=== PATIENT | female | born 1940 | race Caucasian/White ===

== ENCOUNTER → 2017-10-19 10:07 | Outpatient (CLI) | payer MEDICARE, SELFPAY ==
--- NOTE | 2017-10-19 10:12 | CDU_ITS ---
Reason For Study: Stenosis Rt. Velocities/BP Lt. Velocities/BP Prox CCA 82/15 cm/sec. Prox CCA 85/11 cm/sec. Mid CCA 82/20 cm/sec. Mid CCA 60/9 cm/sec. Dist CCA 78/19 cm/sec. Dist CCA 69/13 cm/sec. Prox ICA 119/24 cm/sec. Prox ICA 66/11 cm/sec. Mid ICA 101/25 cm/sec. Mid ICA 49/13 cm/sec. Dist ICA 108/30 cm/sec. Dist ICA 79/24 cm/sec. Rt. ICA/CCA = 1.45. Lt. ICA/CCA = 1.31. Prox ECA 76/2 cm/sec. Prox ECA 72/5 cm/sec. Rt. Vert. 66/13 cm/sec. Lt. Vert. 60/17 cm/sec. Right Extracranial There is intimal thickening but no significant atherosclerotic plaque noted in the right common carotid artery. There is heterogeneous, irregular atherosclerotic plaque noted in the right internal carotid artery. The right internal carotid artery is very tortuous. There is heterogeneous, irregular atherosclerotic plaque noted in the right external carotid artery. Antegrade flow is noted in the right vertebral artery. Left Extracranial There is heterogeneous, irregular atherosclerotic plaque noted in the left common carotid artery. There is heterogeneous, irregular atherosclerotic plaque noted in the left internal carotid artery. There is heterogeneous, irregular atherosclerotic plaque noted in the left external carotid artery. Antegrade flow is noted in the left vertebral artery. Procedure Carotid Duplex [id number]. Exam performed in department. Interpretation Summary Mild (<50%) stenosis right extracranial internal carotid. Mild (<50%) stenosis left extracranial internal carotid. Flow within the vertebral arteries is antegrade bilaterally. Ordering Physician: Isabella Smith Referring Physician: Isabella Smith Performed By: Venessa Aparicio, JONAS, RVT
== END ==
PROVIDERS: Family Provider Nurse Practitioner; PCP Nurse Practitioner; Visit Provider Nurse Practitioner
DX: I65.23 Occlusion and stenosis of bilateral carotid arteries (principal)
CPT/HCPCS: 93880

== ENCOUNTER → 2017-11-02 10:54 | Outpatient (CLI) | payer MEDICARE, SELFPAY ==
--- NOTE | 2017-11-02 10:56 | BI_ITS ---
MAMMOGRAPHY - BILATERAL SCREENING REASON FOR EXAM: Female, 77 years old. Routine annual screening examination. PERTINENT HISTORY: Non-contributory. Remote left stereotactic breast biopsy. TECHNIQUE: Digital bilateral breast josue (3D mammographic acquisition) in the CC and MLO projections. 2-D mediolateral oblique (MLO) and craniocaudad (CC) views of both breasts were obtained. CAD: Full Field Digital Mammography with Computer Added Detection was performed. COMPARISON: Comparison is made with prior study dated November 01, 2016 and October 30, 2015. FINDINGS: Breast Composition: There are scattered areas of fibroglandular density. There are no dominant masses or suspicious calcifications. Stable appearance of the calcifications in the deep midportion of the left breast. Stable benign-appearing small bilateral axillary lymph nodes. No other significant abnormalities are identified. There has been no significant change since the prior study. BI/SCREENING MAMM (CAD), BILAT IMPRESSION: Stable bilateral screening mammogram. Yearly follow-up mammogram recommended. (A) ASSESSMENT CATEGORY: BIRADS Category 2: Benign. A letter regarding these results will be sent to the patient by the facility within 30 days. Approximately 10% of breast cancers are not detected by mammography. A normal mammogram should not delay biopsy of a clinically suspicious abnormality. [id number] Electronically Signed: Maikol Shin MD at 9:29 EDT Tel [phone], Service support ,
--- NOTE | 2017-11-02 11:26 | BD_ITS ---
STUDY: DUAL ENERGY X-RAY ABSORPTIOMETRY / DXA REASON FOR EXAM: Female, 77 years old. Postmenopausal female. History of hormone therapy. Patient is diabetic and taking calcium and multivitamins. Patient taking Actonel. TECHNIQUE: Bone Mineral Density (BMD) measurements of lumbar spine and bilateral hips were obtained. COMPARISON: None. FINDINGS: Lumbar Spine (L1-L4): g/cm2 (1.005) / T-score (-1.3) / Z-score (0 point) Findings are suggestive of osteopenia with a moderate fracture risk. Left Femur Total: g/cm2 (0.782) / T-score (-1.8) / Z-score (-0.1) Left Femoral Neck: g/cm2 (0.721) / T-score (-2.3) / Z-score (-0.4) Right Femur Total: g/cm2 (0.671) / T-score (-2.7) / Z-score (0.9) Right Femoral Neck: g/cm2 (0.696) / T-score (-2.5) / Z-score (-0.5) BD/Dexa Bone Density Study IMPRESSION: The patient is considered osteoporotic as outlined below according to World David Organization (WHO) criteria with a high fracture risk. Reference Information: The T-score is the number of standard deviations above or below the standard which is normal for young adults at their peak bone mineral density. The World Health Organization (WHO) interprets the T-scores as follows: Above -1 Normal bone density Between -1 and -2.5 Osteopenia Equal to / or below -2.5 Osteoporosis As a practical clinical guideline, osteopenia may be graded as follows: Mild -1 through -1.5 Moderate -1.6 through -2.0 Severe -2.1 through -2.4 The Z-score is the number of standard deviations above or below age-matched controls. A Z-score of less than -1.5 would be considered abnormal. References: 1. NIH Osteoporosis and Related Bone Diseases http://www.osteo.org 2. International Society for Clinical Densitometry http://www.iscd.org 3. National Osteoporosis Foundation http://www.nof.org Electronically Signed: Beto Parikh DO at 9:03 EDT Tel [phone], Service support ,
== END ==
PROVIDERS: Family Provider Nurse Practitioner; PCP Nurse Practitioner; Visit Provider Nurse Practitioner
DX: Z12.31 Encounter for screening mammogram for malignant neoplasm of breast (principal); Z78.0 Asymptomatic menopausal state
CPT/HCPCS: 77063; 77067; 77080

== ENCOUNTER → 2017-11-19 08:42 | Outpatient (CLI) | payer MEDICARE, SELFPAY ==
[2017-11-19 09:15] LABS: Color, Urine Yellow (Yellow); Glucose, Dipstick Normal (Normal); Ketone-Dipstick Negative (Negative); Leukocyte Esterase-Dipstick 500 /ul (Negative); Nitrite-Dipstick Negative (Negative); Occult Blood-Urine 10 /ul (Negative); Protein-Dipstick Negative (Negative); Specific Gravity, Urine 1.005 (1.002-1.030); Urine Bilirubin Dipstick Negative (Negative); Urine Clarity Clear (Clear); Urine Urobilinogen Normal (Normal)
[2017-11-19 09:43] LABS: Microalbumin,Random Urine 19.1 mg/L (NO RANGE EST.)
[2017-11-19 10:06] LABS: Absolute Lymphocyte Count 1.32 X10^3/ul (0.83-4.51); Absolute Neutrophil Count 2.9 X10^3/uL (2.0-7.7); Basophil# 0.01 X10^3/uL; Basophil% 0.2 % (0-1); Eosinophil# 0.17 X10^3/uL; Eosinophils% 3.6 % (0-5); Hematocrit 37.7 % (37-47); Hemoglobin 12.6 g/dl (12.0-15.0); Lymphocyte # 1.32 X10^3/ul (4.0); Mean Corp Hgb Conc 33.4 g/gl (32-36); Mean Corpuscular Hgb 29.2 pg (27.0-32.0); Mean Corpuscular Volume 87.5 fL (81-99); Mean Platelet Vol. 10.8 fl (6.2-12.0); Monocyte# 0.34 X10^3/uL; Monocyte% 7.2 % (0-10); Neutrophil # 2.87 X10^3/uL (2.7-7.7); POSITIVE COUNT NO; POSITIVE DIFFERENTIAL NO; POSITIVE MORPHOLOGY NO; Platelet Count 147 K/mm3 (150-450); RBC Distribution Width SD 44.6 fl (35.1-43.9); Red Blood Count 4.31 M/mm3 (4.2-5.4); White Blood Count 4.7 K/mm3 (4.4-11.0)
[2017-11-19 10:40] LABS: ALB/GLOB Ratio 1.3 RATIO (0.9-2.4); AST(SGOT) 23 U/L (15-37); Alanine Aminotransfer ALT/SGPT 26 U/L (13-56); Albumin, Serum 3.6 g/dL (3.2-5.0); Alkaline Phosphatase 61 U/L (45-117); Anion Gap 6 (5-15); BUN 12 mg/dL (7-18); Calcium,Total 8.6 mg/dL (8.5-10.1); Chloride 102 mmol/L (98-107); Cholesterol 102 mg/dL (200); Creatinine, Serum 0.66 mg/dL (0.55-1.02); EST Glomerular Filtration Rate 92 mL/min (>60); Est Glom Filt Rate - Afr Amer 111 mL/min (>60); Globulin 2.7 g/dL (2.2-4.2); Glucose 115 mg/dL (74-106); High Density Lipoprotein 48 mg/dL; Potassium 4.4 mmol/L (3.5-5.1); Protein, Total 6.3 g/dL (6.4-8.2); Sodium Level 135 mmol/L (136-145); Thyroid Stim Hormone (TSH) 1.15 uIU/mL (0.358-3.74); Triglycerides 121 mg/dL; Very Low Density Lipoprotein 24 mg/dL (5-40)
== END ==
PROVIDERS: Family Provider Nurse Practitioner; PCP Nurse Practitioner; Visit Provider Nurse Practitioner
DX: E11.9 Type 2 diabetes mellitus without complications (principal)
CPT/HCPCS: 36415; 80053; 80061; 81002; 82043; 82570; 84443; 85025

== ENCOUNTER → 2018-02-28 08:49 | Outpatient (CLI) | payer MEDICARE, SELFPAY ==
[2018-02-28 10:20] LABS: AST(SGOT) 19 U/L (15-37); Alanine Aminotransfer ALT/SGPT 24 U/L (13-56); Albumin, Serum 3.5 g/dL (3.2-5.0); Alkaline Phosphatase 58 U/L (45-117); Bilirubin, Direct 0.13 mg/dL (0.00-0.30); Cholesterol 116 mg/dL (200); Globulin 2.6 g/dL (2.2-4.2); High Density Lipoprotein 57 mg/dL; Protein, Total 6.1 g/dL (6.4-8.2); Triglycerides 107 mg/dL; Very Low Density Lipoprotein 21 mg/dL (5-40)
== END ==
PROVIDERS: Family Provider Internal Medicine; PCP Internal Medicine; Visit Provider Internal Medicine
DX: E78.4 Other hyperlipidemia (principal)
CPT/HCPCS: 36415; 80061; 80076

== ENCOUNTER → 2018-03-10 14:19 | Outpatient (CLI) | payer MEDICARE, SELFPAY ==
[2018-03-10 15:13] LABS: Potassium 4.1 mmol/L (3.5-5.1)
== END ==
PROVIDERS: Family Provider Internal Medicine; PCP Internal Medicine; Visit Provider Internal Medicine
DX: E87.5 Hyperkalemia (principal)
CPT/HCPCS: 36415; 84132

== ENCOUNTER → 2018-09-12 08:51 | Outpatient (CLI) | payer MEDICARE, SELFPAY ==
[2018-09-12 10:04] LABS: Absolute Lymphocyte Count 1.56 X10^3/ul (0.83-4.51); Absolute Neutrophil Count 3.1 X10^3/uL (2.0-7.7); Basophil# 0.02 X10^3/uL; Basophil% 0.3 % (0-1); Eosinophil# 0.81 X10^3/uL; Eosinophils% 13.9 % (0-5); Hematocrit 36.1 % (37-47); Hemoglobin 11.6 g/dl (12.0-15.0); Lymphocyte # 1.56 X10^3/ul (4.0); Lymphocyte % 26.9 % (19-41); Mean Corp Hgb Conc 32.1 g/gl (32-36); Mean Corpuscular Hgb 28.7 pg (27.0-32.0); Mean Corpuscular Volume 89.4 fL (81-99); Mean Platelet Vol. 9.8 fl (6.2-12.0); Monocyte# 0.31 X10^3/uL; Monocyte% 5.3 % (0-10); Neutrophil # 3.07 X10^3/uL (2.7-7.7); Neutrophil % 52.9 % (47-70); POSITIVE COUNT NO; POSITIVE DIFFERENTIAL NO; POSITIVE MORPHOLOGY NO; Platelet Count 257 K/mm3 (150-450); RBC Distribution Width SD 46.1 fl (35.1-43.9); Red Blood Count 4.04 M/mm3 (4.2-5.4); White Blood Count 5.8 K/mm3 (4.4-11.0)
[2018-09-12 10:33] LABS: Microalbumin,Random Urine 8.3 mg/L (NO RANGE EST.); Microalbumin:Creatinine Ratio 14.3 mg/g CRE (<30 mg/g CRE)
[2018-09-12 10:38] LABS: Vitamin B12 574 pg/mL (211-911); Vitamin D,25 Hydroxy 48.2 ng/mL (29.95-100.01)
[2018-09-12 11:14] LABS: ALB/GLOB Ratio 1.1 RATIO (0.9-2.4); AST(SGOT) 20 U/L (15-37); Alanine Aminotransfer ALT/SGPT 27 U/L (13-56); Albumin, Serum 3.1 g/dL (3.2-5.0); Alkaline Phosphatase 80 U/L (45-117); Anion Gap 11 (5-15); BUN 10 mg/dL (7-18); BUN/Creat Ratio 14.1 RATIO (10-20); Calcium,Total 8.4 mg/dL (8.5-10.1); Chloride 106 mmol/L (98-107); Creatinine, Serum 0.71 mg/dL (0.55-1.02); EST Glomerular Filtration Rate 85 mL/min (>60); Est Glom Filt Rate - Afr Amer 103 mL/min (>60); Free T3 2.6 pg/mL (2.18-3.98); Globulin 2.7 g/dL (2.2-4.2); Glucose 137 mg/dL (74-106); Potassium 4.2 mmol/L (3.5-5.1); Protein, Total 5.8 g/dL (6.4-8.2); Sodium Level 142 mmol/L (136-145); T4 Free Direct 1.33 ng/dL (0.76-1.46); Thyroid Stim Hormone (TSH) 0.77 uIU/mL (0.358-3.74)
[2018-09-13 20:07] LABS: CHOLESTEROL TOTAL 134 mg/dL (100-199); HDL-C 44 mg/dL (>39); HDL-P TOTAL 33.1 umol/L (>=30.5); SMALL LDL-P 694 nmol/L (<=527); TRIGLYCERIDES 123 mg/dL (0-149)
[2018-09-15 09:26] LABS: INSULIN RESISTANCE SCORE 52 (<=45); LDL SIZE 19.9 nm (>20.5); LDL-C 65 mg/dL (0-99); LDL-P 919 nmol/L (<1000)
== END ==
PROVIDERS: Family Provider Internal Medicine; PCP Internal Medicine; Referring Provider Internal Medicine; Visit Provider Internal Medicine
DX: E03.9 Hypothyroidism, unspecified (principal); E11.36 Type 2 diabetes mellitus with diabetic cataract; E11.65 Type 2 diabetes mellitus with hyperglycemia; E53.8 Deficiency of other specified B group vitamins; E55.9 Vitamin D deficiency, unspecified
CPT/HCPCS: 36415; 80053; 80061; 82043; 82306; 82570; 82607; 83704; 84439; 84443; 84481; 85025

== ENCOUNTER → 2018-09-26 12:31 | Outpatient (CLI) | payer MEDICARE, SELFPAY ==
--- NOTE | 2018-09-26 12:39 | CDU_ITS ---
Reason For Study: Carotid stenosis Rt. Velocities/BP Lt. Velocities/BP Prox CCA 98.5/19.9 cm/sec. Prox CCA 92.7/15.5 cm/sec. Mid CCA 100.0/16.4 cm/sec. Mid CCA 72.4/11.2 cm/sec. Dist CCA 77.4/15.8 cm/sec. Dist CCA 66.0/13.3 cm/sec. Prox ICA 111.0/21.2 cm/sec. Prox ICA 60.3/14.2 cm/sec. Mid ICA 115.0/26.7 cm/sec. Mid ICA 72.3/24.6 cm/sec. Dist ICA 102.0/21.8 cm/sec. Dist ICA 58.8/11.4 cm/sec. Rt. ICA/CCA = 1.2. Lt. ICA/CCA = 1.0. Prox ECA 105.0/11.0 cm/sec. Prox ECA 74.5/7.7 cm/sec. Rt. Vert. 53.4/10.5 cm/sec. Lt. Vert. 65.1/15.8 cm/sec. Right Extracranial There is intimal thickening but no significant atherosclerotic plaque noted in the right common carotid artery. There is heterogeneous, irregular atherosclerotic plaque noted in the right internal carotid artery. The atherosclerotic plaque causes acoustic shadowing. There is heterogeneous, irregular atherosclerotic plaque noted in the right external carotid artery. Antegrade flow is noted in the right vertebral artery. Left Extracranial There is intimal thickening but no significant atherosclerotic plaque noted in the left common carotid artery. There is heterogeneous, irregular atherosclerotic plaque noted in the left internal carotid artery. The atherosclerotic plaque causes acoustic shadowing. There is intimal thickening but no significant atherosclerotic plaque noted in the left external carotid artery. Antegrade flow is noted in the left vertebral artery. Procedure Carotid Duplex [id number]. Exam performed in department. Interpretation Summary Mild (<50%) stenosis right extracranial internal carotid. Mild (<50%) stenosis left extracranial internal carotid. Flow within the vertebral arteries is antegrade bilaterally. Ordering Physician: Karmen Resendez Referring Physician: Karmen Resendez Performed By: Sherly Lebron RVT
== END ==
PROVIDERS: Family Provider Internal Medicine; PCP Internal Medicine; Referring Provider Internal Medicine; Visit Provider Internal Medicine
DX: I65.23 Occlusion and stenosis of bilateral carotid arteries (principal)
CPT/HCPCS: 93880

== ENCOUNTER → 2018-11-03 09:51 | Outpatient (CLI) | payer MEDICARE, SELFPAY ==
--- NOTE | 2018-11-03 09:54 | BI_ITS ---
MAMMOGRAPHY - BILATERAL SCREENING 3-D TOMOSYNTHESIS REASON FOR EXAM: Female, 78 years old. Bilateral Screening 3-D tomosynthesis PERTINENT HISTORY: Status post left stereotactic biopsy in 2010.. TECHNIQUE: 2-D mammograms and 3-D Tomosynthesis of the breast (s) were performed. CAD was performed. COMPARISON: November 02, 2017. FINDINGS: The breast composition is composed of scattered fibroglandular density. Scattered benign calcifications are seen. No dense spiculated masses or suspicious microcalcifications are identified. No architectural distortion is identified. There is no skin thickening or retraction. Again seen are stable, typically benign appearing left breast calcifications. There has been no significant change since the prior study. BI/SCREENING MAMM (CAD), BILAT IMPRESSION: No mammographic signs of malignancy. Routine yearly mammograms recommended. ASSESSMENT CATEGORY: BIRADS Category 2: Benign. A letter regarding these results will be sent to the patient by the facility within 30 days. FOLLOW UP RECOMMENDATION: Yearly follow up mammogram recommended. (A) Approximately 10% of breast cancers are not detected by mammography. A normal mammogram should not delay biopsy of a clinically suspicious abnormality. Electronically Signed: Peter Dillon MD at 15:29 EDT , Service support ,
== END ==
PROVIDERS: Family Provider Internal Medicine; PCP Internal Medicine; Referring Provider Internal Medicine; Visit Provider Internal Medicine
DX: Z12.31 Encounter for screening mammogram for malignant neoplasm of breast (principal); I65.23 Occlusion and stenosis of bilateral carotid arteries
CPT/HCPCS: 77063; 77067

== ENCOUNTER → 2019-03-20 08:29 | Outpatient (CLI) | payer MEDICARE, SELFPAY ==
[2019-03-20 08:36] LABS: Mucous, Urine 0 SEEN /hpf (<or=2+); Red Blood Cells-Urine 0 SEEN /hpf (0-5)
[2019-03-20 09:14] LABS: Absolute Lymphocyte Count 1.29 X10^3/uL (0.83-4.51); Absolute Neutrophil Count 2.9 X10^3/uL (2.0-7.7); Basophil# 0.01 X10^3/uL; Basophil% 0.2 % (0-1); Eosinophil# 0.24 X10^3/uL; Hematocrit 38.7 % (37-47); Hemoglobin 12.6 g/dL (12.0-15.0); Lymphocyte # 1.29 X10^3/ul (4.0); Mean Corp Hgb Conc 32.6 g/dL (32-36); Mean Corpuscular Hgb 29.2 pg (27.0-32.0); Mean Corpuscular Volume 89.8 fL (81-99); Mean Platelet Vol. 10.5 fl (6.2-12.0); Monocyte% 6.3 % (0-10); NRBC Flagged by Analyzer 0 % (0-5); Neutrophil # 2.91 X10^3/uL (2.7-7.7); Neutrophil % 61.1 % (47-70); Platelet Count 199 K/mm3 (150-450); RBC Distribution Width CV 13.8 % (11.6-14.6); RBC Distribution Width SD 45.5 fl (35.1-43.9); Red Blood Count 4.31 M/mm3 (4.2-5.4); White Blood Count 4.8 K/mm3 (4.4-11.0)
[2019-03-20 09:22] LABS: Color, Urine Yellow (Yellow); Glucose, Dipstick Normal (Normal); Ketone-Dipstick Negative (Negative); Leukocyte Esterase-Dipstick 100 /ul (Negative); Nitrite-Dipstick Negative (Negative); Occult Blood-Urine 10 /ul (Negative); Protein-Dipstick Negative (Negative); Urine Bilirubin Dipstick Negative (Negative); Urine Clarity Clear (Clear); Urine Urobilinogen Normal (Normal)
[2019-03-20 09:30] LABS: Bacteria RARE /hpf (None Seen); Squamous Epithelial Cells - UA 0-5 SEEN /hpf (5-10); White Blood Cells 0-5 SEEN /hpf (0-5)
[2019-03-20 09:43] LABS: Microalbumin,Random Urine 7.4 mg/L (NO RANGE EST.)
[2019-03-20 09:57] LABS: ALB/GLOB Ratio 1.3 RATIO (0.9-2.4); AST(SGOT) 18 U/L (15-37); Alanine Aminotransfer ALT/SGPT 23 U/L (13-56); Albumin, Serum 3.4 g/dL (3.2-5.0); Alkaline Phosphatase 69 U/L (45-117); Anion Gap 7 (5-15); BUN 10 mg/dL (7-18); BUN/Creat Ratio 15.3 RATIO (10-20); Chloride 102 mmol/L (98-107); Creatinine, Serum 0.65 mg/dL (0.55-1.02); EST Glomerular Filtration Rate 94 mL/min (>60); Est Glom Filt Rate - Afr Amer 113 mL/min (>60); Globulin 2.7 g/dL (2.2-4.2); Glucose 117 mg/dL (74-106); Potassium 4.2 mmol/L (3.5-5.1); Protein, Total 6.1 g/dL (6.4-8.2); Sodium Level 136 mmol/L (136-145); Thyroid Stim Hormone (TSH) 1.09 uIU/mL (0.358-3.74)
[2019-03-20 10:13] LABS: Vitamin B12 184 pg/mL (211-911); Vitamin D,25 Hydroxy 48.6 ng/mL (29.95-100.01)
[2019-03-21 16:08] LABS: CHOLESTEROL TOTAL 125 mg/dL (100-199); HDL-C 52 mg/dL (>39); HDL-P TOTAL 35.7 umol/L (>=30.5); SMALL LDL-P 484 nmol/L (<=527); TRIGLYCERIDES 97 mg/dL (0-149)
[2019-03-22 16:19] LABS: INSULIN RESISTANCE SCORE 27 (<=45); LDL-C 54 mg/dL (0-99); LDL-P 773 nmol/L (<1000)
== END ==
PROVIDERS: Family Provider Internal Medicine; PCP Internal Medicine; Referring Provider Internal Medicine; Visit Provider Internal Medicine
DX: I10 Essential (primary) hypertension (principal); E03.9 Hypothyroidism, unspecified; E78.49 Other hyperlipidemia; E55.9 Vitamin D deficiency, unspecified; E53.8 Deficiency of other specified B group vitamins
CPT/HCPCS: 36415; 80053; 80061; 81001; 82043; 82306; 82570; 82607; 83704; 84443; 85025

== ENCOUNTER → 2019-12-06 07:30 | Outpatient (CLI) | payer MEDICARE, SELFPAY ==
[2019-12-06 07:37] LABS: Bacteria 0 SEEN /hpf (None Seen); Mucous, Urine 0 SEEN /hpf (<or=2+)
[2019-12-06 08:11] LABS: Absolute Lymphocyte Count 1.55 X10^3/uL (0.83-4.51); Absolute Neutrophil Count 3.1 X10^3/uL (2.0-7.7); Basophil# 0.02 X10^3/uL; Basophil% 0.4 % (0-1); Color, Urine Straw (Yellow); Eosinophil# 0.28 X10^3/uL; Eosinophils% 5.3 % (0-5); Glucose, Dipstick Normal (Normal); Hematocrit 39.5 % (37-47); Hemoglobin 12.7 g/dL (12.0-15.0); Ketone-Dipstick Negative (Negative); Leukocyte Esterase-Dipstick 500 /ul (Negative); Lymphocyte # 1.55 X10^3/ul (4.0); Lymphocyte % 29.1 % (19-41); Mean Corp Hgb Conc 32.2 g/dL (32-36); Mean Corpuscular Hgb 29.7 pg (27.0-32.0); Mean Corpuscular Volume 92.3 fL (81-99); Monocyte% 7.5 % (0-10); NRBC Flagged by Analyzer 0 % (0-5); Neutrophil # 3.07 X10^3/uL (2.7-7.7); Neutrophil % 57.5 % (47-70); Nitrite-Dipstick Negative (Negative); Occult Blood-Urine 10 /ul (Negative); Platelet Count 179 K/mm3 (150-450); Protein-Dipstick 15 mg/dl (Negative); RBC Distribution Width CV 13.6 % (11.6-14.6); RBC Distribution Width SD 45.3 fl (35.1-43.9); Red Blood Count 4.28 M/mm3 (4.2-5.4); Urine Bilirubin Dipstick Negative (Negative); Urine Clarity Sl. Cloudy (Clear); Urine Urobilinogen Normal (Normal); Urine pH 6.5 (5.0 - 8.0); White Blood Count 5.3 K/mm3 (4.4-11.0)
[2019-12-06 08:18] LABS: Red Blood Cells-Urine 0-5 SEEN /hpf (0-5); Squamous Epithelial Cells - UA 0-5 SEEN /hpf (5-10); White Blood Cells 25-50 SEEN /hpf (0-5)
[2019-12-06 08:26] LABS: Microalbumin,Random Urine 21.9 mg/L (NO RANGE EST.); Microalbumin:Creatinine Ratio 41.9 mg/g CRE (<30 mg/g CRE)
--- NOTE | 2019-12-06 08:29 | BI_ITS ---
MAMMOGRAPHY - BILATERAL SCREENING REASON FOR EXAM: Female, 79 years old. Routine annual screening examination. PERTINENT HISTORY: Non-contributory. TECHNIQUE: Digital bilateral breast lukas (3D mammographic acquisition) in the CC and MLO projections. 2-D mediolateral oblique (MLO) and craniocaudad (CC) views of both breasts were obtained. CAD: Full Field Digital Mammography with Computer Added Detection was performed. COMPARISON: Comparison is made with prior examination dated November 03, 2018 and November 02, 2017. FINDINGS: Breast Composition: There are scattered areas of fibroglandular density. There are no dominant masses or suspicious calcifications. Stable benign-appearing bilateral axillary lymph nodes. Stable macrocalcification in the central portion of the left breast. No other significant abnormalities are identified. There has been no significant change since the prior study. BI/SCREEN MAMM (CAD) W/LUKAS BILAT IMPRESSION: Stable bilateral screening mammogram. Yearly follow-up mammogram recommended. (A) ASSESSMENT CATEGORY: BIRADS Category 2: Benign. A letter regarding these results will be sent to the patient by the facility within 30 days. Approximately 10% of breast cancers are not detected by mammography. A normal mammogram should not delay biopsy of a clinically suspicious abnormality. [id number] Electronically Signed: Maikol Shin, at 9:52 EDT , Service support ,
[2019-12-06 08:45] LABS: ALB/GLOB Ratio 1.2 RATIO (0.9-2.4); AST(SGOT) 22 U/L (15-37); Alanine Aminotransfer ALT/SGPT 31 U/L (13-56); Albumin, Serum 3.4 g/dL (3.2-5.0); Alkaline Phosphatase 71 U/L (45-117); Anion Gap 8 (5-15); BUN 16 mg/dL (7-18); BUN/Creat Ratio 23.9 RATIO (10-20); Chloride 102 mmol/L (98-107); Cholesterol 124 mg/dL (200); Creatinine, Serum 0.67 mg/dL (0.55-1.02); EST Glomerular Filtration Rate 91 mL/min (>60); Est Glom Filt Rate - Afr Amer 110 mL/min (>60); Globulin 2.8 g/dL (2.2-4.2); Glucose 143 mg/dL (74-106); High Density Lipoprotein 52 mg/dL; Potassium 4.4 mmol/L (3.5-5.1); Protein, Total 6.2 g/dL (6.4-8.2); Sodium Level 136 mmol/L (136-145); Thyroid Stim Hormone (TSH) 1.35 uIU/mL (0.358-3.74); Triglycerides 83 mg/dL; Very Low Density Lipoprotein 17 mg/dL (5-40)
--- NOTE | 2019-12-06 08:53 | BD_ITS ---
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 COMPARISON: Comparison is made with prior study dated November 02, 2017. FINDINGS: Lumbar Spine (L1-L4): g/cm2 (1.395) / T-score (1.6) / Z-score (3.4) Findings are suggestive of normal bone density with a low fracture risk. Increased thoracic kyphosis. Left Femur Total: g/cm2 (0.787) / T-score (-1.8) / Z-score (0.1) Left Femoral Neck: g/cm2 (0.780) / T-score (-1.9) / Z-score (0.2) Right Femur Total: g/cm2 (0.709) / T-score (-2.4) / Z-score (-0.5) Right Femoral Neck: g/cm2 (0.767) / T-score (-1.9) / Z-score (0.1) The T-Scores on the most recent prior examination were: Lumbar Spine (L1-L4): There has been improvement of bone density since the previous examination. Left Femur Total: which represents an improvement of 0.6%. Right Femur Total: which represents an improvement of 5.7%. BD/Dexa Bone Density Study IMPRESSION: The patient is considered osteopenic as outlined below according to World David Organization (WHO) criteria with a high fracture risk. There has been improvement of bone density since the previous examination. Reference Information: The T-score is the number of standard deviations above or below the standard which is normal for young adults at their peak bone mineral density. The World Health Organization (WHO) interprets the T-scores as follows: Above -1 Normal bone density Between -1 and -2.5 Osteopenia Equal to / or below -2.5 Osteoporosis As a practical clinical guideline, osteopenia may be graded as follows: Mild -1 through -1.5 Moderate -1.6 through -2.0 Severe -2.1 through -2.4 The Z-score is the number of standard deviations above or below age-matched controls. A Z-score of less than -1.5 would be considered abnormal. References: 1. NIH Osteoporosis and Related Bone Diseases http://www.osteo.org 2. International Society for Clinical Densitometry http://www.iscd.org 3. National Osteoporosis Foundation http://www.nof.org Electronically Signed: Maikol Shin, at 10:24 EDT , Service support ,
[2019-12-06 09:09] LABS: Vitamin B12 674 pg/mL (211-911); Vitamin D,25 Hydroxy 48.6 ng/mL
== END ==
PROVIDERS: PCP Internal Medicine; Referring Provider Internal Medicine; Visit Provider Internal Medicine
DX: Z78.0 Asymptomatic menopausal state (principal); Z12.31 Encounter for screening mammogram for malignant neoplasm of breast; I10 Essential (primary) hypertension; E03.9 Hypothyroidism, unspecified; E55.9 Vitamin D deficiency, unspecified; E53.8 Deficiency of other specified B group vitamins; E11.9 Type 2 diabetes mellitus without complications
CPT/HCPCS: 36415; 77063; 77067; 77080; 80053; 80061; 81001; 82043; 82306; 82570; 82607; 84443; 85025

== ENCOUNTER 2020-01-03 08:35 | Emergency (ER) | payer MEDICARE, SELFPAY ==
[2020-01-03 08:37] VITALS: BP 144/70; PULSE 74; RESP 18; TEMP 36.5; O2SAT 97; BMI 22.2
--- NOTE | 2020-01-03 08:47 | RAD_ITS ---
STUDY: X-RAY - RIGHT KNEE REASON FOR EXAM: Female, 79 years old. FALL YESTERDAY WITH INJURY TO RIGHT KNEE. UNABLE TO PUT WEIGHT ON RIGHT SIDE TECHNIQUE: 3 view(s) of the knee. COMPARISON: None. FINDINGS: Degenerative spurring along the femoral condyles. Normal visualized proximal tibia and fibula. Normal proximal tibiofibular articulation. There is moderate degenerative arthrosis of the medial femorotibial compartment with moderate joint space narrowing. There is mild degenerative arthrosis of the lateral femorotibial compartment. There is moderate degenerative arthrosis of the patellofemoral articulation. Small joint effusion. RAD/Knee 3 Views IMPRESSION: Degenerative arthrosis. Small joint effusion. Electronically Signed: Maikol Shin, at 9:20 EDT , Service support ,
--- NOTE | 2020-01-03 08:48 | RAD_ITS ---
STUDY: X-RAY - RIGHT TIBIA AND FIBULA REASON FOR EXAM: Female, 79 years old. FALL YESTERDAY WITH INJURY TO RIGHT KNEE. UNABLE TO PUT WEIGHT ON RIGHT SIDE TECHNIQUE: 2 view(s) of the tibia and fibula were obtained. COMPARISON: None. FINDINGS: Normal visualized tibia. Normal visualized fibula. The soft tissue structures are unremarkable. RAD/Tibia & Fibula 2 Views IMPRESSION: Normal x-ray examination of the tibia and fibula. Electronically Signed: Maikol Shin, at 9:20 EDT , Service support ,
--- NOTE | 2020-01-03 08:48 | ED.DCSUM_ITS ---
History of Present Illness Chief Complaint: Fall Informant: Patient Onset: Yesterday Timing: Continuous Current Severity: Moderate Narrative: 79-year-old female with past medical history of hypertension, diabetes, hyperli pidemia presents with concern for right knee pain. States that yesterday they were at the local drugstore when she tripped over a parking curb and struck her bilateral knees on the ground. States that she has pain in her right knee. Has been able to bear weight on this knee. Has been using a walker at home to get around since this time. States that the pain is aching and worse with movement. Denies any numbness or tingling. Also states that she has a mild pain in the right upper leg and lower leg. Patient is not on anticoagulation. Denies any head trauma or loss of consciousness. Denies any dizziness, lightheadedness, chest pain, shortness of breath. Past Medical History - Allergies and Home Meds Allergies/Adverse Reactions: Allergies No Known Allergies Allergy (Verified 01/03/20 08:38) Primary Care Physician: Dunia Clifton DO [STAFF PHYSICIAN] - Karmen Resendez DO [Primary Care Provider] - Prior records reviewed: Yes Past Medical History: - - Hypertension, hyperlipidemia, diabetes Surgical History: no surgical history Smoking Status: Never smoker Alcohol: None Drugs: None Review of Systems General: Denies: Chills, Fever, Sweats Eyes: Denies: Visual changes - bilaterally, Diplopia ENT: Denies: Rhinorrhea, Sore throat Cardiovascular: Denies: Chest pain, Palpitations Respiratory: Denies: Dyspnea, Cough, Dyspnea on exertion Gastrointestinal: Denies: Abdominal pain, Nausea, Vomiting, Diarrhea, Melena, Hematochezia Genitourinary: Denies: Dysuria, Hematuria, Frequency Musculoskeletal: Reports: Arthralgias. Denies: Neck pain, Back pain, Extremity Pain Skin: Denies: Rash, Wounds Neurological: Denies: Headache, Weakness, Numbness Physical Exam Vital Signs/Narrative: Vital Signs Temp Pulse Resp BP Pulse Ox 01/03/20 08:37 97.7 F L 74 18 144/70 H 97 General: Well nourished, Well developed, No Acute Distress Head: Normocephalic, Atraumatic Eyes: Perrl, EOMI ENT: Moist mucous membranes, No rhinorrhea Neck: Supple, Nontender Cardiovascular: Regular rate, Regular rhythm, No murmurs Respiratory: No distress, CTA bilaterally, Chest nontender Abdomen: Soft, Nontender, Nondistended, Normal bowel sounds Back: Nontender, Normal Inspection Extremities: - - Evidence of right knee edema with slight ecchymosis. Worse medially. Tenderness to palpation over the right knee. Extensor mechanism intact.Patient also has abrasion to the left knee but no pain on palpation. Mild pain on palpation of the right lateral thigh with no overlying skin changes. Mild pain to palpation of the right lateral lower extremity with no overlying skin changes. Strong and palpable pulses in the popliteal as well as DP and PT. Sensation intact. Skin: Normal color, No rash Neurological: Alert, Oriented x3, Cranial nerves II-XII grossly intact, Normal Strength, Normal Sensation Psychological: Normal affect, Normal Mood Diagnostic/Tx/Re-eval Clinical Impression(s) from Imaging Studies Knee X-Ray 01/03/20 08:47 IMPRESSION: Degenerative arthrosis. Small joint effusion. Electronically Signed: Maikol Shin at 9:20 EDT , Service support , Femur X-Ray 01/03/20 08:48 IMPRESSION: Normal x-ray examination of the femur. Electronically Signed: Maikol Shin, at 9:19 EDT , Service support , Tibia/Fibula X-Ray 01/03/20 08:48 IMPRESSION: Normal x-ray examination of the tibia and fibula. Electronically Signed: Maikol Shin at 9:20 EDT , Service support , - Medical Decision Making Appears well nontoxic. No obvious deformity. Small knee effusion on x-ray. Otherwise no fracture. Extensor mechanism intact. Patient will be placed in knee immobilizer. States that she does want to try at home using her walker. Will give orthopedic follow-up. Advised to return if no improvement in the next 2 days. Patient was also advised to take Tylenol 3 times a day for the next 4 days regardless of pain. Patient agreeable and discharged home in stable condition. ED Disposition - Plan for ED Patient: Disposition: Home or Assisted Living Diagnosis: Right knee injury Instructions: ED Mechanical Fall, ED Prevention Fall Referrals: Karmen Resendez DO [Primary Care Provider] - Dunia Clifton DO [STAFF PHYSICIAN] -
--- NOTE | 2020-01-03 08:48 | RAD_ITS ---
STUDY: X-RAY - RIGHT FEMUR REASON FOR STUDY: Female, 79 years old. FALL YESTERDAY WITH INJURY TO RIGHT KNEE. UNABLE TO PUT WEIGHT ON RIGHT SIDE TECHNIQUE: 4 view(s) of the femur. COMPARISON: None. FINDINGS: Normal visualized femur. Normal visualized soft tissue structure. RAD/Femur Min 2 Views IMPRESSION: Normal x-ray examination of the femur. Electronically Signed: Maikol Shin, at 9:19 EDT , Service support ,
== END 2020-01-03 10:18 | disposition home or self-care (01) ==
PROVIDERS: Emergency Provider Emergency Medicine; PCP Internal Medicine
DX: S89.91XA Unspecified injury of right lower leg, initial encounter (principal); W01.0XXA Fall on same level from slipping, tripping and stumbling without subsequent striking against object, initial encounter; Y93.01 Activity, walking, marching and hiking; Y92.481 Parking lot as the place of occurrence of the external cause; I10 Essential (primary) hypertension; E11.9 Type 2 diabetes mellitus without complications; E78.5 Hyperlipidemia, unspecified; Z79.84 Long term (current) use of oral hypoglycemic drugs; Z79.899 Other long term (current) drug therapy
CPT/HCPCS: 73552; 73562; 73564; 73590; 99283

== ENCOUNTER → 2020-01-10 13:50 | Outpatient (CLI) | payer MEDICARE, SELFPAY ==
[2020-01-10 12:57] VITALS: BMI 22.2
--- NOTE | 2020-01-10 13:51 | RAD_ITS ---
STUDY: X-RAY - RIGHT KNEE REASON FOR EXAM: Female, 79 years old. RECENT FALL, PATELLA VIEW TECHNIQUE: 1 view of the knee (patella sunrise). COMPARISON: February 10, 2016. FINDINGS: There is mild degenerative arthrosis of the patellofemoral articulation. No fracture nor dislocation is visualized. RAD/Knee 1 or 2 Views IMPRESSION: Degenerative changes. No fracture identified. Electronically Signed: Maria Guadalupe Peacock MD at 18:45 EDT Tel , Service support ,
== END ==
PROVIDERS: PCP Internal Medicine; Referring Provider Physician Assistant; Visit Provider Physician Assistant
DX: S89.91XA Unspecified injury of right lower leg, initial encounter (principal); W19.XXXA Unspecified fall, initial encounter; M17.11 Unilateral primary osteoarthritis, right knee
CPT/HCPCS: 73560

== ENCOUNTER → 2020-06-13 08:53 | Outpatient (CLI) | payer MEDICARE, SELFPAY ==
[2020-01-10 12:57] VITALS: BMI 22.2
[2020-06-13 08:59] LABS: Mucous, Urine 0 SEEN /hpf (<or=2+); Red Blood Cells-Urine 0 SEEN /hpf (0-5)
[2020-06-13 10:12] LABS: Absolute Lymphocyte Count 1.35 X10^3/uL (0.83-4.51); Absolute Neutrophil Count 3.1 X10^3/uL (2.0-7.7); Basophil# 0.02 X10^3/uL; Basophil% 0.4 % (0-1); Eosinophil# 0.28 X10^3/uL; Eosinophils% 5.5 % (0-5); Hematocrit 40.6 % (37-47); Hemoglobin 13.1 g/dL (12.0-15.0); Lymphocyte # 1.35 X10^3/ul (4.0); Lymphocyte % 26.3 % (19-41); Mean Corp Hgb Conc 32.3 g/dL (32-36); Mean Platelet Vol. 10.7 fl (6.2-12.0); Monocyte# 0.37 X10^3/uL; Monocyte% 7.2 % (0-10); NRBC Flagged by Analyzer 0 % (0-5); Neutrophil % 60.4 % (47-70); Platelet Count 189 K/mm3 (150-450); RBC Distribution Width CV 13.6 % (11.6-14.6); RBC Distribution Width SD 45.2 fl (35.1-43.9); Red Blood Count 4.51 M/mm3 (4.2-5.4); White Blood Count 5.1 K/mm3 (4.4-11.0)
[2020-06-13 10:18] LABS: Color, Urine Yellow (Yellow); Glucose, Dipstick Normal (Normal); Ketone-Dipstick Negative (Negative); Leukocyte Esterase-Dipstick 500 /ul (Negative); Nitrite-Dipstick Negative (Negative); Occult Blood-Urine Negative /ul (Negative); Protein-Dipstick Negative (Negative); Urine Bilirubin Dipstick Negative (Negative); Urine Clarity Clear (Clear); Urine Urobilinogen Normal (Normal)
[2020-06-13 10:26] LABS: White Blood Cells 0-5 SEEN /hpf (0-5)
[2020-06-13 10:27] LABS: Bacteria RARE /hpf (None Seen); Squamous Epithelial Cells - UA 0-5 SEEN /hpf (5-10)
[2020-06-13 10:40] LABS: Microalbumin:Creatinine Ratio 16.1 mg/g CRE (<30 mg/g CRE)
[2020-06-13 11:08] LABS: Vitamin B12 1134 pg/mL (211-911); Vitamin D,25 Hydroxy 34.7 ng/mL
[2020-06-13 11:21] LABS: ALB/GLOB Ratio 1.4 RATIO (0.9-2.4); AST(SGOT) 25 U/L (15-37); Alanine Aminotransfer ALT/SGPT 36 U/L (13-56); Albumin, Serum 3.6 g/dL (3.2-5.0); Alkaline Phosphatase 72 U/L (45-117); Anion Gap 4 (5-15); BUN 14 mg/dL (7-18); BUN/Creat Ratio 22.2 RATIO (10-20); Calcium,Total 8.7 mg/dL (8.5-10.1); Chloride 105 mmol/L (98-107); Cholesterol 142 mg/dL (200); Creatinine, Serum 0.63 mg/dL (0.55-1.02); EST Glomerular Filtration Rate 97 mL/min (>60); Est Glom Filt Rate - Afr Amer 117 mL/min (>60); Globulin 2.5 g/dL (2.2-4.2); Glucose 122 mg/dL (74-106); High Density Lipoprotein 49 mg/dL; Potassium 4.5 mmol/L (3.5-5.1); Protein, Total 6.1 g/dL (6.4-8.2); Sodium Level 137 mmol/L (136-145); Thyroid Stim Hormone (TSH) 1.02 uIU/mL (0.358-3.74); Triglycerides 119 mg/dL; Very Low Density Lipoprotein 24 mg/dL (5-40)
== END ==
PROVIDERS: PCP Internal Medicine; Referring Provider Internal Medicine; Visit Provider Internal Medicine
DX: I10 Essential (primary) hypertension (principal); E03.9 Hypothyroidism, unspecified; E55.9 Vitamin D deficiency, unspecified; E78.49 Other hyperlipidemia; E53.8 Deficiency of other specified B group vitamins
CPT/HCPCS: 80053; 80061; 81001; 82043; 82306; 82570; 82607; 84443; 85025

== ENCOUNTER → 2020-12-18 08:31 | Outpatient (CLI) | payer MEDICARE, SELFPAY ==
[2020-01-10 12:57] VITALS: BMI 22.2
--- NOTE | 2020-12-18 08:37 | CDU_ITS ---
Reason For Study: carotid stenosis Rt. Velocities/BP Lt. Velocities/BP Prox CCA 98.6/22.9 cm/sec. Prox CCA 65.9/9.2 cm/sec. Mid CCA 98.6/20.3 cm/sec. Mid CCA 65.1/11.0 cm/sec. Dist CCA 85.5/24.3 cm/sec. Dist CCA 71.2/13.6 cm/sec. Prox ICA 108.7/24.8 cm/sec. Prox ICA 32.5/11.1 cm/sec. Mid ICA 114.2/28.5 cm/sec. Mid ICA 64.2/16.2 cm/sec. Dist ICA 98.6/26.2 cm/sec. Dist ICA 58.2/18.5 cm/sec. Rt. ICA/CCA = 1.2. Lt. ICA/CCA = 1.0. Prox ECA 103.4/6.6 cm/sec. Prox ECA 119.8/6.6 cm/sec. Rt. Vert. 53.7/14.5 cm/sec. Lt. Vert. 64.4/17.1 cm/sec. Right Extracranial There is homogeneous, smooth atherosclerotic plaque noted in the right common carotid artery. There is heterogeneous, irregular atherosclerotic plaque noted in the right internal carotid artery. The right internal carotid artery is very tortuous. There is heterogeneous, irregular atherosclerotic plaque noted in the right external carotid artery. Antegrade flow is noted in the right vertebral artery. Left Extracranial There is homogeneous, smooth atherosclerotic plaque noted in the left common carotid artery. There is heterogeneous, irregular atherosclerotic plaque noted in the left internal carotid artery. The left internal carotid artery is very tortuous. There is heterogeneous, irregular atherosclerotic plaque noted in the left external carotid artery. Antegrade flow is noted in the left vertebral artery. Procedure Carotid Duplex [id number]. This is a Carotid Duplex examination using B-mode, color flow and specral Doppler. The exam was diagnostic. Exam performed in department. VL/Carotid Duplex Ultrasound Interpretation Summary Mild (<50%) stenosis right extracranial internal carotid. Mild (<50%) stenosis left extracranial internal carotid. Flow within the vertebral arteries is antegrade bilaterally. Ordering Physician: Karmen Resendez Performed By: Srinivas Jeronimo RVT and Student
== END ==
PROVIDERS: PCP Internal Medicine; Visit Provider Internal Medicine
DX: I65.23 Occlusion and stenosis of bilateral carotid arteries (principal)
CPT/HCPCS: 93880

== ENCOUNTER → 2020-12-25 09:02 | Outpatient (CLI) | payer MEDICARE, SELFPAY ==
[2020-01-10 12:57] VITALS: BMI 22.2
[2020-12-25 09:26] LABS: Absolute Lymphocyte Count 1.38 X10^3/uL (0.83-4.51); Absolute Neutrophil Count 3.6 X10^3/uL (2.0-7.7); Basophil# 0.02 X10^3/uL; Basophil% 0.4 % (0-1); Eosinophil# 0.22 X10^3/uL; Eosinophils% 3.9 % (0-5); Hematocrit 40.6 % (37-47); Hemoglobin 13.3 g/dL (12.0-15.0); Lymphocyte # 1.38 X10^3/ul (0.83-4.51); Lymphocyte % 24.4 % (19-41); Mean Corp Hgb Conc 32.8 g/dL (32-36); Mean Corpuscular Hgb 29.4 pg (27.0-32.0); Mean Corpuscular Volume 89.6 fL (81-99); Mean Platelet Vol. 10.4 fl (6.2-12.0); Monocyte# 0.39 X10^3/uL; Monocyte% 6.9 % (0-10); NRBC Flagged by Analyzer 0 % (0-5); Neutrophil # 3.61 X10^3/uL (2.7-7.7); Neutrophil % 63.9 % (47-70); Platelet Count 190 K/mm3 (150-450); RBC Distribution Width SD 45.1 fl (35.1-43.9); Red Blood Count 4.53 M/mm3 (4.2-5.4); White Blood Count 5.7 K/mm3 (4.4-11.0)
[2020-12-25 09:49] LABS: Microalbumin,Random Urine 41.4 mg/L (NO RANGE EST.); Microalbumin:Creatinine Ratio 66.3 mg/g CRE (<30 mg/g CRE)
[2020-12-25 10:03] LABS: Vitamin B12 1023 pg/mL (211-911); Vitamin D,25 Hydroxy 52.2 ng/mL
[2020-12-25 10:11] LABS: ALB/GLOB Ratio 1.3 RATIO (0.9-2.4); AST(SGOT) 23 U/L (15-37); Alanine Aminotransfer ALT/SGPT 30 U/L (13-56); Albumin, Serum 3.6 g/dL (3.2-5.0); Alkaline Phosphatase 73 U/L (45-117); Anion Gap 4 (5-15); BUN 12 mg/dL (7-18); BUN/Creat Ratio 18.3 RATIO (10-20); Chloride 105 mmol/L (98-107); Cholesterol 127 mg/dL (200); Creatinine, Serum 0.66 mg/dL (0.55-1.02); EST Glomerular Filtration Rate 93 mL/min (>60); Est Glom Filt Rate - Afr Amer 112 mL/min (>60); Globulin 2.7 g/dL (2.2-4.2); Glucose 121 mg/dL (74-106); High Density Lipoprotein 56 mg/dL; Potassium 4.5 mmol/L (3.5-5.1); Protein, Total 6.3 g/dL (6.4-8.2); Sodium Level 138 mmol/L (136-145); Thyroid Stim Hormone (TSH) 0.97 uIU/mL (0.358-3.74); Triglycerides 131 mg/dL; Very Low Density Lipoprotein 26 mg/dL (5-40)
== END ==
PROVIDERS: PCP Internal Medicine; Visit Provider Internal Medicine
DX: E53.8 Deficiency of other specified B group vitamins (principal); E55.9 Vitamin D deficiency, unspecified; E03.9 Hypothyroidism, unspecified; I10 Essential (primary) hypertension
CPT/HCPCS: 36415; 80053; 80061; 82043; 82306; 82570; 82607; 84443; 85025

== ENCOUNTER → 2021-01-19 12:46 | Outpatient (CLI) | payer MEDICARE, SELFPAY ==
[2020-01-10 12:57] VITALS: BMI 22.2
--- NOTE | 2021-01-19 12:47 | BI_ITS ---
MAMMOGRAPHY - BILATERAL SCREENING REASON FOR EXAM: Female, 80 years old. Routine annual screening examination. PERTINENT HISTORY: Non-contributory. Remote left stereotactic breast biopsy. TECHNIQUE: Digital bilateral breast lukas (3D mammographic acquisition) in the CC and MLO projections. 2-D mediolateral oblique (MLO) and craniocaudad (CC) views of both breasts were obtained. CAD: Full Field Digital Mammography with Computer Added Detection was performed. COMPARISON: Comparison is made with prior study dated 12/06/2019 and 11/03/2018. FINDINGS: Breast Composition: The breasts are heterogeneously dense, which may obscure small masses. There are no dominant masses or suspicious calcifications. Stable small benign-appearing bilateral axillary lymph nodes. Stable linear calcification in the retroareolar region of the left breast. No other significant abnormalities are identified. There has been no significant change since the prior study. BI/SCRN MAMM (CAD)W/LUKAS BILAT IMPRESSION: Stable bilateral screening mammogram. Yearly follow-up mammogram recommended. (A) ASSESSMENT CATEGORY: BIRADS Category 2: Benign. A letter regarding these results will be sent to the patient by the facility within 30 days. Approximately 10% of breast cancers are not detected by mammography. A normal mammogram should not delay biopsy of a clinically suspicious abnormality. [id number] Electronically Signed: Maikol Shin MD at 13:38 EDT , Service support ,
== END ==
PROVIDERS: PCP Internal Medicine; Referring Provider Internal Medicine; Visit Provider Internal Medicine
DX: Z12.31 Encounter for screening mammogram for malignant neoplasm of breast (principal)
CPT/HCPCS: 77063; 77067

== ENCOUNTER 2021-06-19 09:00 | Outpatient (RCR) | payer MEDICARE, SELFPAY ==
--- NOTE | 2021-06-01 09:31 | HP.PTEVAL_ITS ---
Patient's Visit Information BAKARI BETTENCOURT is a 80 year old F referred to Physical Therapy by Dr. Aurora Starkey MD with a diagnosis of neck pain. Date of Evaluation: 06/01/21 Physical Therapist: Dilan Muller, FRANKIET, OCS, CSCS - Visit Plan Frequency: 2-3x /Week Duration: 4 Weeks Plan: 2-3x/week for 4 weeks for. 1. Mh and STM to L pericervical mm including lev scap , SCM and UT/paraspinals. 2. postural correction, neck stretching of above and postural/neck strength to HEP. - Subjective Went to doctor as neck started hurting two months ago. Doctor said it was OA. Insidious onset. Pain is L side into ear and head when lying down on side. Pain is 0-6/10. Worse with stress. Does not keep her up at night. not employed. Home activities are normal but gardening was a chore this summer. Enjoys sewing in winter and would not do that do to neck. Enjoys puzzles. Basic ADLs are going well. No numbness or tingling in UE except carpal tunnel in R hand now and then. No falls. - Pain L neck Pain Intensity (Out of 10): 0 Pain Intensity Range: 0, 6 - Objective Posture is forward head and forward scapula. Tender to touch L perscap muscles and paraspinals into SCM. ROM cervical ext 53 degrees no pain, rotations 52 B with slight pain to the left. SB is 3 degrees B with slight L pain. retraction is minimally limited without pain. scap movement is good but depression and retraction slightly limited B. Other UE joints symmetrical and painfree and WFL. reflexes 2/3 bi and tri. Sensation UE WNL to gross light touch. Strength UE 4-/5 without myotomal problems. - VAT,. - Cervical compression test. tightness in SCM B and UT B and lev scap B. - Balance/Special Test Scores Oswestry Neck Score: 9 - Goals Goal 1:: Lie down at ngith and wake up without discomfort Goal Time Frame: 4-6 Weeks Goal 2:: Patient have 0-1/10 neck pain at all times and 75% improved overall. Goal Time Frame: 4-6 Weeks Goal 3:: I appropr HEP to minimize future problems. Goal Time Frame: 4-6 Weeks Goal 4:: Pt sit with improved posture in sagittal plane without VC Goal Time Frame: 4-6 Weeks Goal 5:: < 5 oswstry neck score Goal Time Frame: 2-4 Weeks - Rehabilitation Potential Physical Therapy Diagnosis: neck pain likely soft tissue or degenerative in nature limiting comfort with activities. Rehabilitation Potential: Fair - Anticipated Interventions Patient/Client Instruction: Educate patient on: Condition, Plan of Care For the Purpose of:: To decrease pain, To increase ROM, To improve muscle performance and motor function, To increase tolerance to activity/condition/position, To improve ability of physical actions for home/community/work/leisure Therapeutic Exercise to Include: Strength training, Postural training, Flexibilty training, Passive ROM, Active ROM, Scapular Strength/Stabilization For the Purpose of:: To decrease pain, To increase ROM, To improve muscle performance and motor function, To increase tolerance to activity/condition/position, To improve ability of physical actions for home/community/work/leisure Manual Therapy Techniques to Include: Mobilization, Passive ROM, Soft tissue mobilization For the Purpose of:: To decrease pain, To increase ROM, To increase tolerance to activity/condition/position Thermo therapy (hot pack): Yes For the Purpose of:: To decrease pain, To improve nutrient delivery to tissue Thank you for the opportunity to evaluate your patient. For Medicare and Medicare HMO plans, please review the plan of care and approve it. It will need to be FAXED BACK to us at [phone] for Medicare purposes. For Medicare only, by signing this I certify the plan of care. Please let me know if there are questions or concerns regarding this plan of care. Physician Signature:__ Date:
--- NOTE | 2021-06-19 09:13 | HP.PTDCSUM ---
It has been my pleasure to treat BAKARI BETTENCOURT referred by Dr. Aurora Starkey MD, with the diagnosis of neck pain for a total of 6 visit(s). Discharge Date: 06/19/21 Please see the following information for a summary of their discharge status. Subjective: Getting better. Neck doesnt bother her to sleep anymore. Feeling good during day also. No pain since yesterday very little. L neck Pain Intensity (Out of 10): 0 % Improvement: 100 Objective/Function: Full aROM c/s and symmetrical without pain. Full UE AROM without pain, 4/5 strength LE. Good scapular ROM. Goal 1:: Lie down at ngith and wake up without discomfort Goal Progress: Goal Met Goal 2:: Patient have 0-1/10 neck pain at all times and 75% improved overall. Goal Progress: Goal Met Goal 3:: I appropr HEP to minimize future problems. Goal Progress: Goal Met Goal 4:: Pt sit with improved posture in sagittal plane without VC Goal Progress: Goal Met Goal 5:: < 5 oswstry neck score Goal Progress: 6 Plan: d/c If there are questions or concerns regarding this patient's physical therapy, please feel free to call me at [phone]. Thank you for the referral of this patient. Sincerely, Dilan Muller, DPT, OCS, CSCS Balance/Gait/Functional tests - Balance/Special Test Scores Oswestry Neck Score: 6
== END 2021-06-19 19:00 | disposition home or self-care (01) ==
LOC: PT 09:00
PROVIDERS: PCP Internal Medicine; Referring Provider Internal Medicine; Visit Provider Internal Medicine
DX: M54.2 Cervicalgia (principal)
CPT/HCPCS: 97110; 97140; 97161; 97164

== ENCOUNTER 2021-07-07 09:31 | Outpatient (CLI) | payer MEDICARE, SELFPAY ==
[2021-07-07 09:38] LABS: Mucous, Urine 0 SEEN /hpf (<or=2+); Red Blood Cells-Urine 0 SEEN /hpf (0-5)
[2021-07-07 10:53] LABS: Absolute Lymphocyte Count 1.41 X10^3/uL (0.83-4.51); Absolute Neutrophil Count 3.8 X10^3/uL (2.0-7.7); Basophil# 0.02 X10^3/uL; Basophil% 0.3 % (0-1); Eosinophil# 0.22 X10^3/uL; Eosinophils% 3.7 % (0-5); Hematocrit 41.9 % (37-47); Hemoglobin 13.9 g/dL (12.0-15.0); Lymphocyte # 1.41 X10^3/ul (0.83-4.51); Lymphocyte % 23.9 % (19-41); Mean Corp Hgb Conc 33.2 g/dL (32-36); Mean Corpuscular Hgb 29.7 pg (27.0-32.0); Mean Corpuscular Volume 89.5 fL (81-99); Mean Platelet Vol. 10.8 fl (6.2-12.0); Monocyte% 6.8 % (0-10); NRBC Flagged by Analyzer 0 % (0-5); Neutrophil # 3.82 X10^3/uL (2.7-7.7); Neutrophil % 64.6 % (47-70); Platelet Count 177 K/mm3 (150-450); RBC Distribution Width CV 13.9 % (11.6-14.6); RBC Distribution Width SD 44.9 fl (35.1-43.9); Red Blood Count 4.68 M/mm3 (4.2-5.4); White Blood Count 5.9 K/mm3 (4.4-11.0)
[2021-07-07 10:54] LABS: Glucose, Dipstick Normal (Normal); Ketone-Dipstick Negative (Negative); Nitrite-Dipstick Negative (Negative); Occult Blood-Urine Negative /ul (Negative); Urine Bilirubin Dipstick Negative (Negative); Urine Urobilinogen Normal (Normal)
[2021-07-07 10:56] LABS: Color, Urine Yellow (Yellow); Leukocyte Esterase-Dipstick 25 /ul (Negative); Protein-Dipstick Negative (Negative); Urine Clarity Clear (Clear); Urine pH 6.5 (5.0 - 8.0)
[2021-07-07 11:03] LABS: Squamous Epithelial Cells - UA 0-5 SEEN /hpf (5-10); White Blood Cells 0-5 SEEN /hpf (0-5)
[2021-07-07 11:05] LABS: Bacteria 1+ /hpf (None Seen)
[2021-07-07 11:18] LABS: Microalbumin,Random Urine 56.7 mg/L (NO RANGE EST.); Microalbumin:Creatinine Ratio 82.7 mg/g CRE (<30 mg/g CRE)
[2021-07-07 11:23] LABS: Vitamin B12 716 pg/mL (211-911); Vitamin D,25 Hydroxy 58.3 ng/mL
[2021-07-07 11:29] LABS: ALB/GLOB Ratio 1.1 RATIO (0.9-2.4); AST(SGOT) 21 U/L (15-37); Alanine Aminotransfer ALT/SGPT 25 U/L (13-56); Albumin, Serum 3.5 g/dL (3.2-5.0); Alkaline Phosphatase 76 U/L (45-117); Anion Gap 11 (5-15); BUN 15 mg/dL (7-18); BUN/Creat Ratio 22.3 RATIO (10-20); Calcium,Total 9.2 mg/dL (8.5-10.1); Chloride 101 mmol/L (98-107); Cholesterol 132 mg/dL (200); Creatinine, Serum 0.67 mg/dL (0.55-1.02); EST Glomerular Filtration Rate 90 mL/min (>60); Est Glom Filt Rate - Afr Amer 109 mL/min (>60); Globulin 3.1 g/dL (2.2-4.2); Glucose 142 mg/dL (74-106); High Density Lipoprotein 55 mg/dL; Potassium 4.2 mmol/L (3.5-5.1); Protein, Total 6.6 g/dL (6.4-8.2); Sodium Level 136 mmol/L (136-145); Thyroid Stim Hormone (TSH) 1.14 uIU/mL (0.358-3.74); Triglycerides 132 mg/dL; Very Low Density Lipoprotein 26 mg/dL (5-40)
== END 2021-07-07 23:59 | disposition short-term general hospital (02) ==
LOC: LAB 09:33
PROVIDERS: PCP Internal Medicine; Referring Provider Internal Medicine; Visit Provider Internal Medicine
DX: E55.9 Vitamin D deficiency, unspecified (principal); E11.65 Type 2 diabetes mellitus with hyperglycemia; E53.8 Deficiency of other specified B group vitamins; E03.9 Hypothyroidism, unspecified
CPT/HCPCS: 36415; 80053; 80061; 81001; 82043; 82306; 82570; 82607; 83036; 84443; 85025

== ENCOUNTER 2021-10-07 15:13 | Inpatient (IN) | payer MEDICARE, SELFPAY ==
[2021-10-07] VITALS (7 sets, daily range): BP systolic 147–156; BP diastolic 57–81; PULSE 75–79; RESP 15–18; TEMP 36.4–37; O2SAT 96–98; BMI 24.9
--- NOTE | 2021-10-07 15:29 | EKG12_ITS ---
Test Reason : Blood Pressure : / mmHG Vent. Rate : 074 BPM Atrial Rate : 074 BPM P-R Int : 180 ms QRS Dur : 084 ms QT Int : 398 ms P-R-T Axes : 070 063 067 degrees QTc Int : 441 ms Sinus rhythm with Premature supraventricular complexes Otherwise normal ECG Confirmed by PORSCHE LE, JASEN ([id number]), news video editor CHAPIS BARRERA ([id number]) on 10/14/2021 10:24:29 AM Referred By: WANG Confirmed By:JASEN MORRELL MD
--- NOTE | 2021-10-07 15:29 | RAD_ITS ---
STUDY: X-RAY - PELVIS AND RIGHT HIP REASON FOR EXAM: Female, 80 years old. Injury/Pain TECHNIQUE: 3 views of the pelvis and hip. COMPARISON: None. FINDINGS: There is a normal bowel gas pattern. Normal visualized soft tissue structures. There is diffuse demineralization of the osseous structures. Normal bilateral iliac wings, sacroiliac joints and visualized sacrum. There is healing left inferior pubic ramus fracture Normal pubic symphysis. Normal bilateral ischial tuberosities. Normal visualized femoral head. There is acute comminuted intertrochanteric fracture of the right proximal femur with displacement of 2.0 cm. Normal acetabulum. Normal hip joint. RAD/HIP, UNI W/ Pelvis 2-3 Views IMPRESSION: Intertrochanteric fracture of the right proximal femur. Electronically Signed: César Ovalle MD at 17:04 EDT Reading Location ID and State: [facility] / [place] , Service support ,
--- NOTE | 2021-10-07 15:30 | ED.VIS.LOWEX ---
HPI History of Present Illness Chief Complaint: Lower Extremity Injury Informant: patient Narrative Narrative: Patient is a 80-year-old female with history of hypertension, [id number] diabetes mellitus, hypothyroid, hyperlipidemia and osteoarthritis presenting with right hip pain. Patient had a fall just prior to arrival. She is walking to her garage and 1 step down. She somehow slipped and fell onto her right side. She denies hitting her head. She denies loss of consciousness. She last took 81 mg of aspirin at noon today. She states her right leg feels a little numb and she has pain with any range of motion of her hip. She states her pain is mild when she is just sitting at rest. She was unable to get herself up and had to come via EMS. Denies any other injuries or complaints at this time. Notes that she has seen [facility] in the past. Tetanus Immunization: Unknown [facility] Medical History Diabetes Hypertension Home Medications atenolol 25 mg PO BID 01/03/20 [History Last Taken 10/07/21] levothyroxine 50 mcg PO DAILY 01/03/20 [History Last Taken 10/06/21] lisinopril 2.5 mg PO DAILY@1200 01/03/20 [History Last Taken 10/07/21] simvastatin 10 mg PO QHS 01/03/20 [History Last Taken 10/06/21] cyanocobalamin (vitamin B-12) 50 mcg tablet 50 mcg PO DAILY@1200 01/10/20 [History Last Taken 10/07/21] Instaflex 1 cap PO/SL DAILY 10/07/21 [History Last Taken 10/07/21] calcium carbonate [Calcium 600] 600 mg PO DAILY 10/07/21 [History Last Taken 10/07/21] cholecalciferol (vitamin D3) 25 mcg PO DAILY 10/07/21 [History Last Taken 10/07/21] metformin 500 mg PO TID 10/07/21 [History Last Taken 10/07/21] multivitamin 1 tab PO DAILY 10/07/21 [History Last Taken 10/07/21] vit C,B-Zo-cqfem-lutein-zeaxan [PreserVision AREDS-2] 1 tab PO BID 10/07/21 [History Last Taken 10/07/21 .] Allergy/AdvReac Type Severity Reaction Status Date / Time No Known Allergies Allergy Verified 10/07/21 15:15 Family History Father Cancer Mother Heart disease Surgical History H/O: hysterectomy Social History Smoking Status: Never smoker alcohol intake: never what type of physical activity do you participate in: other ROS ROS ED Constitutional Constitutional ED: Denies chills or fever(s) Eyes Eyes: Denies change in vision ENT ENT ED: Denies rhinorrhea or sore throat Cardiovascular Cardiovascular: Denies chest pain Respiratory/Chest Respiratory/Chest: Denies cough or dyspnea Gastrointestinal Gastrointestinal: Denies abdominal pain or vomiting Musculoskeletal Musculoskeletal: Reports other Details: Right hip pain ; Denies back pain, myalgias or neck pain Integumentary Reports Abrasions Neurologic Neurologic: Reports paresthesias; Denies headache(s) or weakness Psychiatric Psychiatric: Denies depression EXAM Physical Exam Const Vital Signs: 10/07/21 15:14 10/07/21 15:15 10/07/21 16:39 Temperature 97.5 F L Temperature Source Temporal Pulse Rate 77 75 78 Respiratory Rate 15 15 16 Blood Pressure 156/65 H 156/65 H 154/81 H Blood Pressure Mean 95 95 105 Pulse Ox 96 96 98 Oxygen Delivery Method Room Air Room Air Room Air Positive well nourished HEENT Reports moist mucous membranes HEENT Narrative: Normal left panic membrane. Cerumen impaction of the right tympanic membrane. No malocclusion of the jaw. No septal hematoma. No sign of facial trauma. normocephalic and atraumatic Eyes PERRL Neck full ROM and supple Thyroid: Negative for tender Chest Wall inspection of chest normal and palpation of chest normal Resp normal respiratory effort and clear to auscultation bilaterally Cardio regular rate, regular rhythm and no murmurs Cardio Narrative: 2+ bilateral DP pulses GI non-tender and non-distended Auscultation: normoactive bowel sounds Palpation: soft Extremity Extremity Narrative: Patient has a shortened and externally rotated right lower extremity with palpation over the right hip. Pain with range of motion of the hip. No other bony deformity. Pelvis is stable. No bony tenderness palpation of the upper extremities. Neuro oriented x3, CN's II-XII intact bilaterally and no sensory deficits noted Sensorium / Orientation: alert Motor Exam: strength 5/5 throughout Psych mental status grossly normal Skin Skin Narrative: 2 cm superficial circumferential abrasion to the right elbow Rashes: no rashes MDM MDM MDM Narrative Medical decision making narrative: Patient evaluated for mechanical fall with subsequent right hip pain. Based on physical exam I am highly concerned for a right hip fracture. Will obtain imaging as well as preop labs. Patient given morphine and Zofran for symptom control in the emergency room X-ray interpreted by myself is consistent with a right intertrochanteric fracture. Spoke with Dr. Har[facility] Ortho on-call who is agreeable with hospitalist admission. Patient is admitted to hospital service. She remained stable in the emergency room with adequate pain control. Lab Data Attestation: I reviewed the patient's lab results. Labs: Laboratory Results - last 24 hr 10/07/21 10/07/21 10/07/21 15:58 15:58 15:58 WBC 7.3 RBC 4.35 Hgb 12.8 Hct 38.5 MCV 88.5 MCH 29.4 MCHC 33.2 RDW Std Deviation 43.9 RDW Coeff of Evelio 13.4 Plt Count 168 MPV 11.0 Immature Gran % (Auto) 0.300 Neut % (Auto) 73.5 H Lymph % (Auto) 18.3 L Livingston % (Auto) 6.0 Eos % (Auto) 1.8 Baso % (Auto) 0.1 Absolute Neuts (auto) 5.4 Absolute Lymphs (auto) 1.34 Nucleated RBC % 0 PT 12.0 INR 0.9 Sodium 134 L Potassium 3.7 Chloride 103 Carbon Dioxide 24.0 Anion Gap 7 BUN 19 H Creatinine 0.84 Estim Creat Clear Calc 47.14 Est GFR (MDRD) Af Amer 84 Est GFR (MDRD) Non-Af 70 BUN/Creatinine Ratio 22.6 H Glucose 207 H Calcium 9.1 Radiography Diagnostic Testing: Chest x-ray?read by ED physician?no acute process Discharge Plan Triage Chief Complaint: Lower Extremity Injury ED Provider: Umu Garber Dx/Rx/DC Orders Clinical Impression: Closed fracture of right hip, Fall on same level from tripping Prescriptions: No Action Vitamin B-12 50 mcg tablet 50 mcg PO DAILY@1200 RF: 0 simvastatin 10 MG tablet 10 mg PO QHS RF: 0 atenolol 25 MG tablet 25 mg PO BID RF: 0 levothyroxine 50 MCG tablet 50 mcg PO DAILY RF: 0 lisinopril 2.5 MG tablet 2.5 mg PO DAILY@1200 RF: 0 multivitamin Tablet 1 tab PO DAILY RF: 0 calcium carbonate [Calcium 600] 600 mg calcium (1,500 mg) Tablet 600 mg PO DAILY RF: 0 metformin 500 mg tablet extended release 24 hr 500 mg PO TID RF: 0 cholecalciferol (vitamin D3) 25 mcg (1,000 unit) Capsule 25 mcg PO DAILY RF: 0 PreserVision AREDS-2 250-90-40-1 mg Capsule 1 tab PO BID RF: 0 Instaflex 1 cap PO/SL DAILY RF: 0 Primary Care Provider: Karmen Resendez Referrals: Karmen Resendez DO [Primary Care Provider] - Disposition Disposition: Acute Care Hospital [facility]
[2021-10-07] MEDS: Morphine 2 MG/ML Syringe IV (15:47)
[2021-10-07] MEDS: Ondansetron 4 MG/2 ML Vial IV (15:47)
[2021-10-07] MEDS: Diphth,Pertuss(Acell),Tet Vac 0.5 ML Vial IM (15:48)
--- NOTE | 2021-10-07 16:05 | RAD_ITS ---
STUDY: X-RAY CHEST REASON FOR EXAM: Female, 80 years old. Pre op clearance , hip fracture. TECHNIQUE: Single AP portable view of the chest. COMPARISON: None. FINDINGS: The lungs are clear and expanded. There is no demonstrated pleural abnormality. Normal size heart. Normal mediastinum and thalia. Normal visualized pulmonary arteries. There is atherosclerotic calcification of the aortic arch with tortuosity. There is compression fracture of the mid thoracic spine. Normal visualized ribs, clavicles, and shoulders. There is no demonstrated abnormality of the visualized soft tissue structures of the upper abdomen. RAD/Chest 1 View (Portable) IMPRESSION: No focal infiltrate or edema. Electronically Signed: César Ovalle MD at 17:02 EDT ,
[2021-10-07 16:09] LABS: Absolute Lymphocyte Count 1.34 X10^3/uL (0.83-4.51); Absolute Neutrophil Count 5.4 X10^3/uL (2.0-7.7); Basophil# 0.01 X10^3/uL; Basophil% 0.1 % (0-1); Eosinophil# 0.13 X10^3/uL; Eosinophils% 1.8 % (0-5); Hematocrit 38.5 % (37-47); Hemoglobin 12.8 g/dL (12.0-15.0); Lymphocyte # 1.34 X10^3/ul (0.83-4.51); Lymphocyte % 18.3 % (19-41); Mean Corp Hgb Conc 33.2 g/dL (32-36); Mean Corpuscular Hgb 29.4 pg (27.0-32.0); Mean Corpuscular Volume 88.5 fL (81-99); Monocyte# 0.44 X10^3/uL; NRBC Flagged by Analyzer 0 % (0-5); Neutrophil # 5.39 X10^3/uL (2.7-7.7); Neutrophil % 73.5 % (47-70); POSITIVE COUNT YES; Platelet Count 168 K/mm3 (150-450); RBC Distribution Width CV 13.4 % (11.6-14.6); RBC Distribution Width SD 43.9 fl (35.1-43.9); Red Blood Count 4.35 M/mm3 (4.2-5.4); White Blood Count 7.3 K/mm3 (4.4-11.0)
[2021-10-07 16:19] LABS: International Normalized Ratio 0.9
[2021-10-07 16:21] LABS: Anion Gap 7 (5-15); BUN 19 mg/dL (7-18); BUN/Creat Ratio 22.6 RATIO (10-20); Calcium,Total 9.1 mg/dL (8.5-10.1); Chloride 103 mmol/L (98-107); Creatinine, Serum 0.84 mg/dL (0.55-1.02); EST Glomerular Filtration Rate 70 mL/min (>60); Est Glom Filt Rate - Afr Amer 84 mL/min (>60); Estimated Creatinine Clearance 47.14 ml/min; Glucose 207 mg/dL (74-106); Potassium 3.7 mmol/L (3.5-5.1); Sodium Level 134 mmol/L (136-145)
[2021-10-07 16:32] LABS: Differential Indicated SCAN CRITERIA MET
--- NOTE | 2021-10-07 17:04 | PCM.HP.STD ---
HPI - General General Date of Admission: 10/07/21 Date of Service: 10/07/21 Chief Complaint: Right hip pain HPI Narrative BAKARI BETTENCOURT, is a 80 F who presented to the emergency department at [facility] on 10/07/2021 with a chief complaint of right hip pain. Just prior to arrival the patient had a fall. She states that she was walking into her garage and had one step down. She states she slipped and fell back onto her right side. She denied any other injuries other than a abrasion on her right elbow. She denies any loss of consciousness. She states she took an 81 mg aspirin dose at noon today which she does take at baseline. Immediately following her fall she was unable to bear weight on her right leg and had significant pain. The EMS was called and she was brought to the emergency department. She states she does not walk with an assistive device at baseline however she does intermittently walk with a cane when her right knee gives her problems. She states she does have arthritis in her right knee. She is overall very independent and lives with her in a ranch at home. Her vital signs in the emergency department demonstrate that she is afebrile. Her blood pressure has been elevated in the 150s over 60s to 80s, heart rates in the 70s, respiratory rate 15-16 and her oxygen saturation is 97 to 98% on room air. Her CBC is unremarkable. Her coags are normal. Her BMP shows mild hyponatremia with a sodium of 134 however her blood sugar is 207. Her chemistry panel is otherwise unremarkable. An EKG was performed and shows normal sinus rhythm with intermittent sinus arrhythmia with no ST-T wave changes consistent with acute ischemia. Her chest x-ray shows no infiltrate or edema or other acute processes. The x-ray of her hip and pelvis shows an intertrochanteric fracture of her right proximal femur that appears to be mildly displaced. [facility] Medical History (Updated 10/07/21 @ 17:[address] Stella Hernandes DO) Carotid artery stenosis Diabetes Hyperlipidemia Hypertension Hypothyroidism Osteoarthritis Home Medications atenolol 25 mg PO BID 01/03/20 [History Last Taken 10/07/21] levothyroxine 50 mcg PO DAILY 01/03/20 [History Last Taken 10/06/21] lisinopril 2.5 mg PO DAILY@1200 01/03/20 [History Last Taken 10/07/21] simvastatin 10 mg PO QHS 01/03/20 [History Last Taken 10/06/21] cyanocobalamin (vitamin B-12) 50 mcg tablet 50 mcg PO DAILY@1200 01/10/20 [History Last Taken 10/07/21] Instaflex 1 cap PO/SL DAILY 10/07/21 [History Last Taken 10/07/21] calcium carbonate [Calcium 600] 600 mg PO DAILY 10/07/21 [History Last Taken 10/07/21] cholecalciferol (vitamin D3) 25 mcg PO DAILY 10/07/21 [History Last Taken 10/07/21] metformin 500 mg PO TID 10/07/21 [History Last Taken 10/07/21] multivitamin 1 tab PO DAILY 10/07/21 [History Last Taken 10/07/21] vit C,I-Qw-jtsrf-lutein-zeaxan [PreserVision AREDS-2] 1 tab PO BID 10/07/21 [History Last Taken 10/07/21 .] Allergy/AdvReac Type Severity Reaction Status Date / Time No Known Allergies Allergy Verified 10/07/21 15:15 Family History Father Cancer Mother Heart disease Surgical History H/O: hysterectomy Social History (Updated 10/07/21 @ 17:[address] Stella Hernandes DO) household members: spouse housing: house Smoking Status: Never smoker alcohol intake: never substance use type: does not use what type of physical activity do you participate in: other ROS Constitutional Constitutional: Denies anorexia, change in weight, chills, fatigue, fever(s), malaise, night sweats, weakness or other Eyes Eyes: Denies blurry vision, change in eye color, change in vision, discharge from eye(s), double vision, erythema, eye pain, loss of vision or other ENT HEENT: Denies abnormal hearing, dysphagia, ear pain, epistaxis, headache(s), hearing loss, nasal congestion, nasal discharge, post nasal drip, sinus pressure, sore throat or other Cardiovascular Cardiovascular: Denies chest pain, claudication, dyspnea on exertion, edema, lightheadedness, orthopnea, palpitations, paroxysmal nocturnal dyspnea, rapid heart rate, syncope or other Respiratory/Chest Respiratory/Chest: Denies cough, dyspnea, excessive phlegm production, hemoptysis, productive cough, shortness of breath at rest, shortness of breath with exertion, wheezing or other Gastrointestinal Gastrointestinal: Denies abdominal pain, coffee ground emesis, constipation, diarrhea, dyspepsia, hematemesis, hematochezia, loose stools, melena, nausea, vomiting or other Genitourinary Genitourinary: Denies burning urination, difficulty urinating, dysuria, hematuria, nocturia, urinary frequency, urinary hesitancy, urinary incontinence, urinary urgency or other Musculoskeletal Musculoskeletal: Reports arthralgias, joint pain, joint stiffness and joint swelling Neurologic Neurologic: Denies abnormal gait, abnormal speech, confusion, disequilibrium, dizziness, focal weakness, headache(s), numbness, paresthesias, seizure-like activity, seizures, syncope, tingling, tremor(s) or other Psychiatric Psychiatric: Denies anxiety, depression, homicidal ideation, suicidal ideation or other Endocrine Endocrinology: Denies change in body appearance, cold intolerance, excessive sweating, heat intolerance, polydipsia, polyuria or other Hematologic/Lymphatic Hematologic/Lymphatic: Denies anemia, easy bleeding, easy bruising, lymphadenopathy or other Allergic/Immunologic Allergic/Immunologic: Denies rhinitis, hives, eczemia, asthma or other Vital Signs Vital Signs Vital Signs: 10/07/21 15:14 10/07/21 15:15 10/07/21 16:39 Temperature 97.5 F L Temperature Source Temporal Pulse Rate 77 75 78 Respiratory Rate 15 15 16 Blood Pressure 156/65 H 156/65 H 154/81 H Blood Pressure Mean 95 95 105 Pulse Ox 96 96 98 Oxygen Delivery Method Room Air Room Air Room Air 10/07/21 17:00 Temperature 98.6 F Temperature Source Temporal Pulse Rate 78 Respiratory Rate 16 Blood Pressure 154/81 H Blood Pressure Mean 105 Pulse Ox 97 Oxygen Delivery Method Room Air Weight Weight: 54.1 kg Body Mass Index (BMI) 24.9 Physical Exam Const alert, oriented x3, no apparent distress, average body habitus, healthy appearing and well nourished Constitutional Narrative: Female lying in bed, appears comfortable nontoxic, at the bedside General Appearance: cooperative HEENT normocephalic, head/scalp atraumatic, hearing grossly normal bilaterally and moist oral mucous membranes HEENT Narrative: Mallampati is 2, dentition is good for age, no thrush Eyes PERRL, EOMs intact bilaterally and conjunctivae normal Eyes Narrative: No scleral icterus Neck no lymphadenopathy, supple, no JVD and no carotid bruits Neck Narrative: Trachea midline, no thyroid enlargement Resp normal respiratory effort, no retractions, no use of accessory muscles and clear to auscultation bilaterally Auscultation: Negative for crackles, rales, rhonchi or wheezes Cardio regular rate, regular rhythm, S1 normal heart sound, S2 normal heart sound, no murmurs, no rub, no gallops, no clicks and no JVD GI normal to inspection, nondistended, normoactive bowel sounds, soft to palpation, non-tender and non-distended; Negative for hepatosplenomegaly Extremity no clubbing, cyanosis or edema Extremity Narrative: Right lower extremity is shortened and externally rotated Peripheral Pulses: Yes pulses 2+ throughout Skin no rashes or lesions noted, skin turgor normal, no jaundice, no petechiae and no mottling Skin Narrative: Abrasion on the posterior aspect of her right elbow Neuro oriented x3, CN's II-XII intact bilaterally and no focal motor deficits Neuro Narrative: Moves all extremities however mobility limited in the right lower extremity secondary to pain Sensorium / Orientation: awake and alert Speech: speech normal Psych affect normal Results Lab / Micro Data Result Diagrams: 10/07/21 15:58 10/07/21 15:58 Labs: Laboratory Results - last 24 hr 10/07/21 15:58: WBC 7.3, RBC 4.35, Hgb 12.8, Hct 38.5, MCV 88.5, MCH 29.4, MCHC 33.2, RDW Std Deviation 43.9, RDW Coeff of Evelio 13.4, Plt Count 168, MPV 11.0, Immature Gran % (Auto) 0.300, Neut % (Auto) 73.5 H, Lymph % (Auto) 18.3 L, [place] % (Auto) 6.0, Eos % (Auto) 1.8, Baso % (Auto) 0.1, Absolute Neuts (auto) 5.4, Absolute Lymphs (auto) 1.34, Nucleated RBC % 0 10/07/21 15:58: PT 12.0, INR 0.9 10/07/21 15:58: Sodium 134 L, Potassium 3.7, Chloride 103, Carbon Dioxide 24.0, Anion Gap 7, BUN 19 H, Creatinine 0.84, Estim Creat Clear Calc 47.14, Est GFR (MDRD) Af Amer 84, Est GFR (MDRD) Non-Af 70, BUN/Creatinine Ratio 22.6 H, Glucose 207 H, Calcium 9.1 Radiology Impression Chest X-Ray 10/07/21 16:05 IMPRESSION: No focal infiltrate or edema. Electronically Signed: César Ovalle MD at 17:02 EDT Reading Location ID and State: [facility] / [place] , Service support , Assessment & Plan Assessment/Plan (1) Fall on same level from tripping: (2) Closed fracture of right hip: PLAN: Right intertrochanteric hip fracture status post fall -Fall was mechanical in which patient lost her balance -Case was discussed with Dr. Kavon reddy by the emergency department physician and plan will be for OR in the next 24 to 48 hours -N.p.o. after midnight -We will start IV fluids tomorrow morning in anticipation for OR -PT/OT consultation postoperatively -Bedrest for tonight -Pain medication as ordered -Bowel regimen as ordered -Patient had a vitamin D level checked recently at which time it was found to be 54 -Continue home vitamin D supplementation as ordered -Continue home calcium supplementation -Would recommend follow-up with endocrinology versus DEXA scan if not recently done with potential for bisphosphonate/other treatments for osteoporosis if DEXA abnormal -Consult orthopedic surgery -Surgical risk calculator was performed and patient is slightly above average risk for serious complications/any complications/readmission and was significantly above average risk for discharge to facility which is anticipated -Case management consulted for possible rehab versus SNF discharge when medically stable DM-2 -Patient's last hemoglobin A1c was 07/07/2021 and it was 7.0 at that time demonstrating good control -Hold home metformin -Utilize sliding scale -Accu-Cheks before meals and at bedtime -Carb control/cardiac diet Hypertension -Continue lisinopril 2.5 mg daily -Continue atenolol 25 mg p.o. twice daily Bilateral carotid artery stenosis -Most recent carotid ultrasound was performed on 12/18/2020 and showed less than 50% stenosis of bilateral internal carotid arteries -Continue home statin -Continue home aspirin Hyperlipidemia -Continue statin DVT prophylaxis -We will utilize Lovenox to start tomorrow evening after surgery or otherwise to be determined by orthopedic surgery -SCDs CODE STATUS -Full code per discussion with the patient the emergency department prior to admission Charges/Coding Visit Charges Inpatient E&M: 96966 Init Hosp L3
--- NOTE | 2021-10-07 17:53 | CM.ED ---
RN CM Assessment Introduced role of RN CM to patient and Daniel Lara at bedside.? Patient is alert, oriented and able?to participate in RN CM Assessment. ?Care providers, pharmacy, and demographics verified. Admit Dx: IP for Right hip Fx Re-Admit: No Barriers/Issues: None PCP: Karmen Resendez Specialists: None Preferred Pharmacy: [facility] Insurance: [employer] Benefit:?Yes LNOK: Daniel Lara LW/HPOA: States has AD completed, aware not on file with [facility] and if brought in- will scan a copy on file. HPOA- Daniel Lara Living Arrangements:? Lives with in a H, 2 steps through garage to enter home ADL?s: Independent with ambulation and ADLs/IADLs. Does use a straight can sometimes if her Rt knee is giving her issues but has not used the cane in awhile. Transportation: Both patient and her Daniel drive DME: Straight Cane, [employer] HHC: None SNF: None Goal: TBD- Patient states that she is okay with going to a SNF for rehab if recommended. Will require an in network SNF list if so. Aware RNCM will continue to follow her and mobility and further discuss DC planning. DC PLAN: TBD- likely will have surgery, F/u mobility and further discuss DC planning with patient. LAUREN Katz
[2021-10-07] MEDS: Atenolol 25 MG Tablet PO (21:29)
[2021-10-07] MEDS: Atorvastatin Calcium 10 MG Tablet 5 MG PO (21:29)
[2021-10-07] MEDS: oxyCODONE 5 MG Tablet PO (21:29)
[2021-10-07 21:50] LABS: Bedside Glucose 264 mg/dL (74-106)
[2021-10-07] MEDS: Insulin Lispro 100 UNIT/ML INSULN.PEN SC (22:03)
[2021-10-08] VITALS (14 sets, daily range): BP systolic 91–140; BP diastolic 43–81; PULSE 70–95; RESP 10–18; TEMP 36.4–36.9; O2SAT 93–100; BMI 24.9; BMI 23.7
[2021-10-08 06:12] LABS: Absolute Lymphocyte Count 1.13 X10^3/uL (0.83-4.51); Absolute Neutrophil Count 7.5 X10^3/uL (2.0-7.7); Basophil# 0.01 X10^3/uL; Basophil% 0.1 % (0-1); Eosinophil# 0.01 X10^3/uL; Eosinophils% 0.1 % (0-5); Hematocrit 31.8 % (37-47); Hemoglobin 10.8 g/dL (12.0-15.0); Lymphocyte # 1.13 X10^3/ul (0.83-4.51); Lymphocyte % 11.7 % (19-41); Mean Corpuscular Volume 85.5 fL (81-99); Mean Platelet Vol. 10.4 fl (6.2-12.0); Monocyte% 9.3 % (0-10); NRBC Flagged by Analyzer 0 % (0-5); Neutrophil # 7.53 X10^3/uL (2.7-7.7); Neutrophil % 78.1 % (47-70); Platelet Count 175 K/mm3 (150-450); RBC Distribution Width CV 13.7 % (11.6-14.6); RBC Distribution Width SD 42.6 fl (35.1-43.9); Red Blood Count 3.72 M/mm3 (4.2-5.4); White Blood Count 9.7 K/mm3 (4.4-11.0)
[2021-10-08] MEDS: Insulin Lispro 100 UNIT/ML INSULN.PEN SC ×3 (06:20→21:59)
[2021-10-08] MEDS: oxyCODONE 5 MG Tablet PO ×3 (06:20→22:00)
[2021-10-08] MEDS: Levothyroxine 50 MCG Tablet PO (06:20)
[2021-10-08 06:36] LABS: Bedside Glucose 187 mg/dL (74-106)
[2021-10-08 06:45] LABS: ALB/GLOB Ratio 1.5 RATIO (0.9-2.4); AST(SGOT) 22 U/L (15-37); Alanine Aminotransfer ALT/SGPT 26 U/L (13-56); Albumin, Serum 3.2 g/dL (3.2-5.0); Alkaline Phosphatase 62 U/L (45-117); Anion Gap 6 (5-15); BUN 16 mg/dL (7-18); Calcium,Total 8.2 mg/dL (8.5-10.1); Chloride 101 mmol/L (98-107); Creatinine, Serum 0.67 mg/dL (0.55-1.02); EST Glomerular Filtration Rate 91 mL/min (>60); Est Glom Filt Rate - Afr Amer 110 mL/min (>60); Estimated Creatinine Clearance 39.64 ml/min; Globulin 2.2 g/dL (2.2-4.2); Glucose 181 mg/dL (74-106); Magnesium 1.6 mg/dL (1.6-2.6); Phosphorus 3.5 mg/dL (2.5-4.9); Potassium 4.1 mmol/L (3.5-5.1); Protein, Total 5.4 g/dL (6.4-8.2); Sodium Level 133 mmol/L (136-145)
[2021-10-08 07:34] LABS: Thyroid Stim Hormone (TSH) 0.84 uIU/mL (0.358-3.74)
[2021-10-08 07:50] LABS: Hemoglobin A1c 7.2 % (3.8-5.6)
[2021-10-08] MEDS: Atenolol 25 MG Tablet PO ×2 (08:22→22:00)
[2021-10-08] MEDS: 0.9% Normal Saline 1,000 ML 75 ML IV ×2 (08:22→17:55)
[2021-10-08] MEDS: 0.9% Saline Lock 10 ML Syringe IV (08:27)
--- NOTE | 2021-10-08 10:00 | RAD_ITS ---
STUDY: X-RAY - PELVIS AND RIGHT HIP REASON FOR EXAM: Female, 80 years old. RT GAMMA NAIL TECHNIQUE: 6 intraoperative views of the pelvis and hip. COMPARISON: None. FINDINGS: Intraoperative imaging provided for open reduction and fixation of the intertrochanteric fracture using a gamma nail. RAD/Hip 1 view with Pelvis IMPRESSION: Intraoperative imaging provided for open reduction and fixation of the intertrochanteric fracture using a gamma nail. Electronically Signed: Maikol Shin MD at 14:22 EDT ,
--- NOTE | 2021-10-08 10:20 | CONS.ORTHO ---
HPI Consult Data Date of Consult: 10/08/21 HPI Narrative HPI Narrative: BAKARI BETTENCOURT, is a 80 F who presents presented to [facility] emergency department after a mechanical fall in her garage after she missed a step apparently. She slipped onto her back/right side. She noted immediate pain in her right hip and inability to bear weight. Her attempted to get her up but was unable. EMS was called and brought the patient to the emergency department where x-rays revealed a right intertrochanteric proximal femur fracture. Patient also states she had an abrasion to her right elbow but is able to move it without significant pain. Denies any head injury, loss consciousness, syncopal or presyncopal symptoms prior to the fall. Denies any antecedent right hip or groin pain. Occasionally uses a cane to ambulate due to some right knee osteoarthritis. She lives with her at home. Patient was admitted under the service of the hospitalist yesterday 10/07/2021. Orthopedics was consulted for surgical recommendations. [facility] Medical History (Updated 10/07/21 @ 17:40 by Elena Gutierrez) Carotid artery stenosis Diabetes Hyperlipidemia Hypertension Hypothyroidism Osteoarthritis Osteoporosis Wears hearing aid in both ears Home Medications atenolol 25 mg PO BID 01/03/20 [History Last Taken 10/07/21] levothyroxine 50 mcg PO DAILY 01/03/20 [History Last Taken 10/06/21] lisinopril 2.5 mg PO DAILY@1200 01/03/20 [History Last Taken 10/07/21] simvastatin 10 mg PO QHS 01/03/20 [History Last Taken 10/06/21] cyanocobalamin (vitamin B-12) 50 mcg tablet 50 mcg PO DAILY@1200 01/10/20 [History Last Taken 10/07/21] Instaflex 1 cap PO/SL DAILY 10/07/21 [History Last Taken 10/07/21] calcium carbonate [Calcium 600] 600 mg PO DAILY 10/07/21 [History Last Taken 10/07/21] cholecalciferol (vitamin D3) 25 mcg PO DAILY 10/07/21 [History Last Taken 10/07/21] metformin 500 mg PO TID 10/07/21 [History Last Taken 10/07/21] multivitamin 1 tab PO DAILY 10/07/21 [History Last Taken 10/07/21] vit C,Q-Od-smgoz-lutein-zeaxan [PreserVision AREDS-2] 1 tab PO BID 10/07/21 [History Last Taken 10/07/21 .] Allergy/AdvReac Type Severity Reaction Status Date / Time No Known Allergies Allergy Verified 10/07/21 15:15 Family History Father Cancer Mother Heart disease Surgical History (Updated 10/07/21 @ 17:40 by Elena Gutierrez) H/O: hysterectomy History of appendectomy Social History (Updated 10/07/21 @ 17:[address] Stella Hernandes DO) household members: spouse housing: house Smoking Status: Never smoker alcohol intake: never substance use type: does not use what type of physical activity do you participate in: other ROS ROS Narrative 12 point review of systems obtained, negative unless otherwise noted in HPI. Vital Signs Vital Signs Vital Signs: 10/07/21 15:14 10/07/21 15:15 10/07/21 16:39 Temperature 97.5 F L Temperature Source Temporal Pulse Rate 77 75 78 Respiratory Rate 15 15 16 Respiratory Effort Respiratory Depth Respiratory Pattern Blood Pressure 156/65 H 156/65 H 154/81 H Blood Pressure Mean 95 95 105 Blood Pressure Source Blood Pressure Position Blood Pressure Location Pulse Ox 96 96 98 Oxygen Delivery Method Room Air Room Air Room Air 10/07/21 17:00 10/07/21 17:47 10/07/21 19:55 Temperature 98.6 F 98.5 F Temperature Source Temporal Oral Pulse Rate 78 76 Respiratory Rate 16 18 Respiratory Effort Normal Non-Labored Respiratory Depth Normal Respiratory Pattern Normal Blood Pressure 154/81 H 152/72 H Blood Pressure Mean 105 98 Blood Pressure Source Monitor Blood Pressure Position Semi-Fowlers Blood Pressure Location Right Arm Pulse Ox 97 96 Oxygen Delivery Method Room Air Room Air Room Air 10/07/21 20:09 10/07/21 21:24 10/07/21 21:40 Temperature 98.2 F Temperature Source Oral Pulse Rate 77 79 Respiratory Rate 16 Respiratory Effort Normal Respiratory Depth Normal Respiratory Pattern Normal Blood Pressure 147/57 H Blood Pressure Mean 87 Blood Pressure Source Monitor Blood Pressure Position Semi-Fowlers Blood Pressure Location Right Arm Pulse Ox 98 Oxygen Delivery Method Room Air Room Air 10/08/21 01:01 10/08/21 02:05 10/08/21 04:50 Temperature 97.8 F Temperature Source Temporal Pulse Rate 76 70 73 Respiratory Rate 16 Respiratory Effort Respiratory Depth Respiratory Pattern Blood Pressure 108/50 L Blood Pressure Mean 69 Blood Pressure Source Monitor Blood Pressure Position Semi-Fowlers Blood Pressure Location Right Arm Pulse Ox 99 Oxygen Delivery Method Room Air 10/08/21 07:33 10/08/21 08:20 Temperature 98.2 F Temperature Source Oral Pulse Rate 76 79 Respiratory Rate 16 Respiratory Effort Respiratory Depth Respiratory Pattern Blood Pressure 138/43 H Blood Pressure Mean 74 Blood Pressure Source Monitor Blood Pressure Position Semi-Fowlers Blood Pressure Location Right Arm Pulse Ox 97 Oxygen Delivery Method Room Air Weight Weight: 113 lb 6.4 oz Body Mass Index (BMI) 23.7 Physical Exam Narrative General -A&Ox3, NAD, appears stated age. Vital signs stable, afebrile. Respiratory -normal work of breathing, no intercostal retractions. CV -pulses regular, brisk capillary refill ?4 limbs. Abdomen-soft, nontender, nondistended. No guarding, rigidity, rebound tenderness. Musculoskeletal/neurologic -full range of motion nontender throughout bilateral upper extremities, left lower extremity with full sensation and strength in all dermatomes and myotomes. No midline cervical tenderness. Right lower extremity-no obvious deformity. Pain with logroll of the right lower extremity. Nontender throughout the right knee, femoral shaft, tibial shaft and left foot/ankle. Brisk capillary refill. Sensation intact light touch L3-S1 dermatomes. DF, PF, EHL intact. DP, PT 2+. Pelvis is stable, nontender. Skin is intact without lacerations, abrasions. No ecchymosis noted. Lab / Micro Data Result Diagrams: 10/08/21 05:49 10/08/21 05:49 Labs: Laboratory Results - last 24 hr 10/07/21 15:58: WBC 7.3, RBC 4.35, Hgb 12.8, Hct 38.5, MCV 88.5, MCH 29.4, MCHC 33.2, RDW Std Deviation 43.9, RDW Coeff of Evelio 13.4, Plt Count 168, MPV 11.0, Immature Gran % (Auto) 0.300, Neut % (Auto) 73.5 H, Lymph % (Auto) 18.3 L, [place] % (Auto) 6.0, Eos % (Auto) 1.8, Baso % (Auto) 0.1, Absolute Neuts (auto) 5.4, Absolute Lymphs (auto) 1.34, Nucleated RBC % 0 10/07/21 15:58: PT 12.0, INR 0.9 10/07/21 15:58: Sodium 134 L, Potassium 3.7, Chloride 103, Carbon Dioxide 24.0, Anion Gap 7, BUN 19 H, Creatinine 0.84, Estim Creat Clear Calc 47.14, Est GFR (MDRD) Af Amer 84, Est GFR (MDRD) Non-Af 70, BUN/Creatinine Ratio 22.6 H, Glucose 207 H, Calcium 9.1 10/07/21 21:27: POC Glucose 264 H 10/08/21 05:49: WBC 9.7, RBC 3.72 L, Hgb 10.8 L, Hct 31.8 L, MCV 85.5, MCH 29.0, MCHC 34.0, RDW Std Deviation 42.6, RDW Coeff of Veelio 13.7, Plt Count 175, MPV 10.4, Immature Gran % (Auto) 0.700, Neut % (Auto) 78.1 H, Lymph % (Auto) 11.7 L, [place] % (Auto) 9.3, Eos % (Auto) 0.1, Baso % (Auto) 0.1, Absolute Neuts (auto) 7.5, Absolute Lymphs (auto) 1.13, Nucleated RBC % 0 10/08/21 05:49: Sodium 133 L, Potassium 4.1, Chloride 101, Carbon Dioxide 26.0, Anion Gap 6, BUN 16, Creatinine 0.67, Estim Creat Clear Calc 39.64, Est GFR (MDRD) Af Amer 110, Est GFR (MDRD) Non-Af 91, BUN/Creatinine Ratio 24.0 H, Glucose 181 H, Calcium 8.2 L, Phosphorus 3.5, Magnesium 1.6, Total Bilirubin 0.70, AST 22, ALT 26, Alkaline Phosphatase 62, Total Protein 5.4 L, Albumin 3.2, Globulin 2.2, Albumin/Globulin Ratio 1.5 10/08/21 05:49: TSH 0.84 10/08/21 05:49: Hemoglobin A1c 7.2 H 10/08/21 06:15: POC Glucose 187 H 10/08/21 07:35: Blood Type A POSITIVE, Antibody Screen NEGATIVE Radiology Impression Hip/Pelvis X-Ray 10/07/21 15:29 IMPRESSION: Intertrochanteric fracture of the right proximal femur. Electronically Signed: César Ovalle MD at 17:04 EDT Reading Location ID and State: [facility] / [place] , Service support , Chest X-Ray 10/07/21 16:05 IMPRESSION: No focal infiltrate or edema. Electronically Signed: Cséar Ovalle MD at 17:02 EDT Reading Location ID and State: [facility] / [place] , Service support , Assessment & Plan Assessment/Plan (1) Closed fracture of right hip: PLAN: Patient sustained a right comminuted intertrochanteric proximal femur fracture. -Closed, neurovascularly intact -Isolated injury -Recommending surgical intervention in the form of right femur cephalomedullary nailing -I discussed the procedure-its risks, benefits and alternative. Risks include but are not limited to bleeding, infection, loss of life or limb, risk of anesthesia, persistent pain or disability, need for additional surgery, nonunion, malunion, failure of orthopedic hardware, neurovascular injury, DVT or PE. Patient expressed understanding these risks and wished proceed with surgery. -Maintenance IV fluids, clear liquid diet after midnight n.p.o. at 4 hours prior to surgery -Type and screen -2 g Ancef on-call to the OR -Bedrest, heel protectors -Plan to proceed with surgery later today when the OR time becomes available. Thank you for this consultation.
[2021-10-08] MEDS: Cefazolin 2 GM in 0.9% Normal Saline 100 ML IV ×3 (10:49→21:59)
[2021-10-08] MEDS: Ropivacaine 0.5% 30 ML Vial (12:07)
[2021-10-08 13:16] LABS: Bedside Glucose 167 mg/dL (74-106)
--- NOTE | 2021-10-08 13:16 | OP.PCM_ITS ---
Report of Operation Date of Procedure: 10/08/21 Description of Surgical Findings:: Preoperative diagnosis: Right in tertrochanteric proximal femur fracture Postoperative diagnosis: Right intertrochanteric proximal femur fracture Procedure: Treatment of intertrochanteric hip fracture with intramedullary nail right femur Surgeon: Albert Sheridan DO Anesthesia: General endotracheal Anesthesiologist: Dr. Swift Complications: None Drains: None Estimated blood loss: 250 cc Urinary output: None recorded IV fluids: Per anesthesia record Specimens: None Surgical implants: Pete Gamma3 Cephalomedullary Nail 125 degree 11 mm x 0 mm left, 10.5 mm x 90 mm lag screw, Interlocking screws size 5 mm x 35 mm Surgical indications: This is a 80 F who presents presented to [facility] emergency department after a mechanical fall in her garage after she missed a step apparently. She slipped onto her back/right side. She noted immediate pain in her right hip and inability to bear weight. Her attempted to get her up but was unable. EMS was called and brought the patient to the emergency department where x-rays revealed a right intertrochanteric proximal femur fracture. Patient also states she had an abrasion to her right elbow but is able to move it without significant pain. Denies any head injury, loss consciousness, syncopal or presyncopal symptoms prior to the fall. Denies any antecedent right hip or groin pain. Occasionally uses a cane to ambulate due to some right knee osteoarthritis. She lives with her at home. Patient was admitted under the service of the hospitalist yesterday 10/07/2021. Orthopedics was consulted for surgical recommendations.I recommended cephalomedullary nail fixation of her right intertrochanteric proximal femur fracture. The risks, benefits, alternatives to procedure reviewed with the patient. The risks of the surgery included bleeding, infection, loss of life or limb, malunion, nonunion, damage to vital structures, neurovascular injury, failure of orthopedic hardware, need for additional surgery, persistent pain or disability, risk of anesthesia. The patient expressed understanding of these risks and agreed to proceed with surgery. Blood consent was also obtained. Description of procedure: Patient was seen in preoperative holding area. She was identified by name, medical record number, date of . The operative extremity was marked with a surgical marker. We confirmed informed consent with the patient and questions were answered to her satisfaction. Patient was brought to the operative suite, and general anesthesia was induced on her hospital bed. Endotracheal tube was secured. After adequate anesthesia, patient was transferred to a fracture table with all bony prominences being well-padded. A perineal post was placed to secure the patient on the table. We then applied a ski boot which was well-padded to the operative extremity. The well leg was dropped into extension and secured to the axial post of the fracture table with a pillow and Coban. The right arm was brought across patient's chest with a blanket on her chest. We then performed a closed reduction maneuver with external rotation, traction, internal rotation and adduction. Fluoroscopic images were obtained. Fracture appeared to be acceptably reduced following closed reduction. We then prepped and draped the right lower extremity in normal, sterile orthopedic fashion. A timeout was performed with all parties in attendance in agreement with the side, site, and operation be performed. 2 g Ancef was administered prior to incision. No concerns were voiced and we elected to proceed. I first used fluoroscopy to sonya the level of the fracture and planned incision for insertion of the cephalomedullary nail device. In line with the long axis of the femur, 4 fingerbreadths proximal to the tip of the greater trochanter, a full-thickness skin incision was planned.. Skin was sharply incised with 10 blade scalpel, carried into the subcutaneous tissues. The IT band was encountered and split and planned trajectory of the nail placement. The greater trochanter was then able to be palpated digitally. I then placed a threaded guidewire just medial to the tip of the greater trochanter and in the anterior third of it on the lateral. Opening reamer was then placed over top of the guidewire after placement was confirmed on C arm. A ball-tipped guidewire then was passed into the intramedullary canal after reamer was removed. We used C arm to confirm our placement within the bone. We then sequentially reamed to a final diameter of 12.5 mm using flexible reamers. Reduction was again confirmed. We selected her nail to be 18 cm x 11 mm diameter. Reamers were removed. Nail was assembled on the back table. We placed it over the ball- tipped guidewire and impacted to an appropriate depth. Rotation was confirmed on the lateral. Drill sleeve was placed through the targeting guide. We drilled the pin for the lag screw at an appropriate position and depth, tip to apex distance less than 25 mm on AP and lateral combined. Depth gauge was used to measure the length of the screw, 90 mm. Prior to drilling, I applied a lateral translation of the femoral neck with a bone hook placed to the lag screw incision. We then used the cannulated drill to drill to an appropriate depth. Drill was removed, drill pin left in place. Lag screw was placed over top of the drill pin and tightened to an appropriate depth. Setscrew was then placed and tightened, and then turned back a quarter turn to allow the lag screw to slide. I then drilled for a dynamic interlocking screw in the distal portion of the screw utilizing the outrigger. Skin was incised full-thickness down the level of the IT band which was also split in line with the skin incision. I drilled bicortically through the distal interlocking slot of the nail. I measured for a 35 mm interlocking screw which was placed by hand with excellent purchase. Instruments were removed as well as the outrigger for the nail. Final fluoroscopic images were obtained at the hip. Final fluoroscopic images were obtained. We irrigated the wounds copiously with normal saline solution. Hemostasis was excellent at this point. We then closed the deeper layers, IT band with 0 Vicryl. Intradermal buried stitches of 2-0 Vicryl were utilized and skin finally reapproximated with skin marybeth. Sterile compression dressing of Xeroform, 4 x 4's, and Tegaderm was applied. Patient tolerated procedure well without complication. She was transferred back to her hospital bed and subsequently to PACU in stable condition. Intraoperative medications: 2 g Ancef IV Post Operative Plan: Weightbearing: Weightbearing as tolerated right lower extremity with a walker Antibiotics: Ancef 2 g x 3 doses postoperatively, 1 dose given preoperatively DVT Prophylaxis: Lovenox to start tomorrow morning Henderson: None Dressing: Dry sterile dressing changes daily and as needed for saturation X-Rays: 3 weeks postop in the office Follow-up: 3 weeks post-operatively with me in the office
[2021-10-08] MEDS: Morphine 2 MG/ML Syringe IV (14:46)
--- NOTE | 2021-10-08 14:57 | CHAPLAIN ---
Type of Pastoral Visit ___ Initial Visit ___ Follow-up Visit ___ On-call Visit ___ General Patient Visit ___ Spiritual Assessment ___ Family Conference ___ Bereavement ___ Rapid Response ___ Code Blue ___ Other (describe below) Pastoral Care Referral From ___ Patient ___ Family ___ Nurse ___ Physician ___ Byproducts Pump Operator ___ Skein Dyer ___ Other (describe below) Sacrament/Intervention ___ Active listening ___ Anointing ___ Restorationism ___ Bereavement ___ Communion ___ Loree exploration ___ ___ Life review ___ Prayer ___ Reconciliation ___ Sacrament of Sick ___ Supportive presence ___ Wedding ___ Other (describe below) Pastoral Comments patient and bed out of room; calling card left
--- NOTE | 2021-10-08 15:23 | PN.HOSP_ITS ---
Documented by User: Asha Berger LANDSCAPE CREW MEMBER, LANDSCAPE CREW MEMBER-C 10/08/21 15:31 Subjective Subjective Patient seen and examined. Underwent intramedullary nail right femur. Pain controlled. Denies other symptoms or complaints. Amenable to SNF for rehab at discharge. Objective Data Objective Data Vital Signs: Vital Signs Temp Pulse Resp BP Pulse Ox 97.7 F L 72 16 131/61 H 99 10/08/21 14:38 10/08/21 14:38 10/08/21 14:38 10/08/21 14:38 10/08/21 14:38 Oxygen Flow Rate (L/min) 4 Oxygen Delivery Method Room Air Weight: 113 lb 6.4 oz Body Mass Index (BMI) 23.7 Intake & Output: Intake and Output for Last 24 Hours 10/06/21 10/07/21 10/08/21 23:59 23:59 23:59 Intake Total 1220 / 1220 Output Total 900 / 900 Balance 320 / 320 Lab / Micro Data Result Diagrams: 10/08/21 05:49 10/08/21 05:49 Labs: Laboratory Results - last 24 hr 10/07/21 15:58: WBC 7.3, RBC 4.35, Hgb 12.8, Hct 38.5, MCV 88.5, MCH 29.4, MCHC 33.2, RDW Std Deviation 43.9, RDW Coeff of Eveloi 13.4, Plt Count 168, MPV 11.0, Immature Gran % (Auto) 0.300, Neut % (Auto) 73.5 H, Lymph % (Auto) 18.3 L, [place] % (Auto) 6.0, Eos % (Auto) 1.8, Baso % (Auto) 0.1, Absolute Neuts (auto) 5.4, Absolute Lymphs (auto) 1.34, Nucleated RBC % 0 10/07/21 15:58: PT 12.0, INR 0.9 10/07/21 15:58: Sodium 134 L, Potassium 3.7, Chloride 103, Carbon Dioxide 24.0, Anion Gap 7, BUN 19 H, Creatinine 0.84, Estim Creat Clear Calc 47.14, Est GFR (MDRD) Af Amer 84, Est GFR (MDRD) Non-Af 70, BUN/Creatinine Ratio 22.6 H, Glucose 207 H, Calcium 9.1 10/07/21 21:27: POC Glucose 264 H 10/08/21 05:49: WBC 9.7, RBC 3.72 L, Hgb 10.8 L, Hct 31.8 L, MCV 85.5, MCH 29.0, MCHC 34.0, RDW Std Deviation 42.6, RDW Coeff of Evelio 13.7, Plt Count 175, MPV 1 0.4, Immature Gran % (Auto) 0.700, Neut % (Auto) 78.1 H, Lymph % (Auto) 11.7 L, [place] % (Auto) 9.3, Eos % (Auto) 0.1, Baso % (Auto) 0.1, Absolute Neuts (auto) 7.5, Absolute Lymphs (auto) 1.13, Nucleated RBC % 0 10/08/21 05:49: Sodium 133 L, Potassium 4.1, Chloride 101, Carbon Dioxide 26.0, Anion Gap 6, BUN 16, Creatinine 0.67, Estim Creat Clear Calc 39.64, Est GFR (MDRD) Af Amer 110, Est GFR (MDRD) Non-Af 91, BUN/Creatinine Ratio 24.0 H, Glucose 181 H, Calcium 8.2 L, Phosphorus 3.5, Magnesium 1.6, Total Bilirubin 0.70, AST 22, ALT 26, Alkaline Phosphatase 62, Total Protein 5.4 L, Albumin 3.2, Globulin 2.2, Albumin/Globulin Ratio 1.5 10/08/21 05:49: TSH 0.84 10/08/21 05:49: Hemoglobin A1c 7.2 H 10/08/21 06:15: POC Glucose 187 H 10/08/21 07:35: Blood Type A POSITIVE, Antibody Screen NEGATIVE 10/08/21 13:09: POC Glucose 167 H Radiography Diagnostic Testing: Radiology Impression Hip/Pelvis X-Ray 10/07/21 15:29 IMPRESSION: Intertrochanteric fracture of the right proximal femur. Electronically Signed: César Ovalle MD at 17:04 EDT Reading Location ID and State: [facility], [facility] / [place] , Service support , Chest X-Ray 10/07/21 16:05 IMPRESSION: No focal infiltrate or edema. Electronically Signed: César Ovalle MD at 17:02 EDT , Hip/Pelvis X-Ray 10/08/21 10:00 IMPRESSION: Intraoperative imaging provided for open reduction and fixation of the intertrochanteric fracture using a gamma nail. Electronically Signed: Maikol Shin MD at 14:22 EDT , Physical Exam Const alert, oriented x3 and no apparent distress Orientation / Consciousness: awake, oriented to person, oriented to place and oriented to time HEENT normocephalic and moist oral mucous membranes Eyes PERRL, EOMs intact bilaterally and conjunctivae normal Neck no lymphadenopathy Resp normal respiratory effort and clear to auscultation bilaterally Cardio regular rate, regular rhythm and no murmurs Peripheral Pulses: pulses 2+ throughout GI normal to inspection, nondistended, normoactive bowel sounds, non-tender and non-distended Extremity normal to inspection Skin no rashes or lesions noted Lesions: no lesions Rashes: no rashes Trauma: no lacerations or abrasions Neuro CN's II-XII intact bilaterally, no focal motor deficits, no sensory deficits n oted and deep tendon reflexes 2+ bilaterally Psych mental status grossly normal and affect normal Assessment & Plan Assessment/Plan (1) Closed fracture of right hip: PLAN: 1. Acute traumatic right hip fracture secondary to mechanical fall- underwent intramedullary nailing. PT/OT. Management per orthopedic medicine. Amenable to SNF for rehab at discharge. 2. Type 2 diabetes mellitus-Metformin on hold. Accu-Cheks with sliding scale insulin. 3. Hypertension-stable, continue lisinopril and atenolol. 4. Bilateral carotid artery stenosis-continue aspirin, statin. 5. Hyperlipidemia-continue statin. DVT prophylaxis-Lovenox subcu This patient was seen by EFRAIN Rosario under the supervision of Time spent examining patient, reviewing data and subsequent management of care: 14 Minutes Documented by User: Dr. Stanley Cueto DO 10/08/21 18:42 Objective Data Lab / Micro Data Result Diagrams: 10/08/21 05:49 10/08/21 05:49 Charges/Coding Addendum Addendum: ,Patient was seen and examined independently of Asha Berger today, she underwent repair of a hip fracture today with insertion of an intramedullary nail right femur. I talked briefly with the patient in PACU today, she thinks she may need to go to a retirement facility for short- term rehab services. On examination she appeared in good health and spirits, she does not appear to be in any distress. Vital signs as documented. Skin warm and dry and without overt rashes. Neck without JVD, thyroid appears normal, trachea is midline, neck is supple. Lungs clear, normal air movement was noted. Heart exam notable for regular rhythm, normal sounds and absence of murmurs, rubs or gallops. Abdomen unremarkable and without evidence of organomegaly, masses, or abdominal aortic enlargement, bowel sounds are present in all 4 quadrants, no abdominal tenderness was noted. Extremities nonedematous, no cyanosis was noted, no clubbing was noted. Neuro: Cranial nerves II through XII are grossly intact, no focal motor deficits were noted, sensation to light touch and pinprick is intact, motor exam 5/5 throughout. Psych: Patient is alert and oriented x3, she does not appear anxious or depressed, she does not appear agitated. Impression: #1 right intertrochanteric fracture-status post insertion of intramedullary nail right femur-PT and OT will see the patient, she will most likely need temporary placement in a retirement facility for rehab services. #2 essential hypertension-patient will remain on her current medications #3 hyperlipidemia-patient is on a statin currently #4 hypothyroidism-patient is on Synthroid I have reviewed Asha Berger's progress note including her medical assessment and plan of care and endorse it with the above additions. Total clinical time spent by myself addressing the patient's issues, reviewing the patient's medical data, and communicating with the patient's caregivers: 22 minutes Visit Charges Inpatient E&M: 48632 Subs Hosp L3
[2021-10-08 17:21] LABS: Bedside Glucose 195 mg/dL (74-106)
[2021-10-08] MEDS: Multivitamin (Healthy Eyes) Capsule 1 CAP PO (17:53)
[2021-10-08] MEDS: metFORMIN (XR) 500 MG Tablet PO (17:53)
[2021-10-08] MEDS: Enoxaparin 40 MG/0.4 ML Syringe SC (22:01)
[2021-10-08] MEDS: Acetaminophen 325 MG Tablet 650 MG PO (22:01)
[2021-10-08] MEDS: Atorvastatin Calcium 10 MG Tablet 5 MG PO (22:03)
[2021-10-08 22:10] LABS: Bedside Glucose 235 mg/dL (74-106)
--- NOTE | 2021-10-08 23:45 | NURSING ---
pt only voided 100 ml since after sx. bladder scanned pt, she has 312 residual in her bladder. straight cath pt per order under sterile field. pt tolerated well. had 300 ml urine out.
[2021-10-09 02:26] VITALS: BP 122/48; PULSE 76; RESP 16; TEMP 36.6; O2SAT 97
[2021-10-09 05:53] LABS: Absolute Lymphocyte Count 1.34 X10^3/uL (0.83-4.51); Absolute Neutrophil Count 5.7 X10^3/uL (2.0-7.7); Basophil# 0.01 X10^3/uL; Basophil% 0.1 % (0-1); Hematocrit 24.6 % (37-47); Hemoglobin 8.2 g/dL (12.0-15.0); Lymphocyte # 1.34 X10^3/ul (0.83-4.51); Lymphocyte % 16.8 % (19-41); Mean Corp Hgb Conc 33.3 g/dL (32-36); Mean Corpuscular Hgb 29.2 pg (27.0-32.0); Mean Corpuscular Volume 87.5 fL (81-99); Mean Platelet Vol. 11.7 fl (6.2-12.0); Monocyte# 0.91 X10^3/uL; Monocyte% 11.4 % (0-10); NRBC Flagged by Analyzer 0 % (0-5); Neutrophil # 5.69 X10^3/uL (2.7-7.7); Neutrophil % 71.3 % (47-70); Platelet Count 105 K/mm3 (150-450); RBC Distribution Width CV 13.9 % (11.6-14.6); Red Blood Count 2.81 M/mm3 (4.2-5.4)
[2021-10-09 06:16] VITALS: BP 115/52; PULSE 76; RESP 16; TEMP 36.7; O2SAT 97
[2021-10-09] MEDS: Insulin Lispro 100 UNIT/ML INSULN.PEN SC ×4 (06:20→21:11)
[2021-10-09] MEDS: Cefazolin 2 GM in 0.9% Normal Saline 100 ML IV (06:21)
[2021-10-09] MEDS: Levothyroxine 50 MCG Tablet PO (06:21)
[2021-10-09 06:22] LABS: Anion Gap 5 (5-15); BUN 9 mg/dL (7-18); BUN/Creat Ratio 17.5 RATIO (10-20); Calcium,Total 7.8 mg/dL (8.5-10.1); Chloride 104 mmol/L (98-107); Creatinine, Serum 0.52 mg/dL (0.55-1.02); EST Glomerular Filtration Rate 122 mL/min (>60); Est Glom Filt Rate - Afr Amer 148 mL/min (>60); Estimated Creatinine Clearance 37.65 ml/min; Glucose 176 mg/dL (74-106); Potassium 3.9 mmol/L (3.5-5.1); Sodium Level 131 mmol/L (136-145)
[2021-10-09 06:35] LABS: Bedside Glucose 164 mg/dL (74-106)
[2021-10-09] MEDS: 0.9% Normal Saline 1,000 ML 75 ML IV ×2 (06:41→21:12)
[2021-10-09 06:49] VITALS: O2SAT 91
[2021-10-09 08:30] VITALS: BP 123/48; PULSE 81; RESP 16; TEMP 36.3; O2SAT 100
[2021-10-09] MEDS: Atenolol 25 MG Tablet PO ×2 (09:35→21:11)
[2021-10-09] MEDS: metFORMIN (XR) 500 MG Tablet PO ×3 (09:35→18:24)
[2021-10-09] MEDS: Cholecalciferol (VIT D3) 25 MCG TABLET (1,000 UNITS) PO (09:36)
[2021-10-09] MEDS: Acetaminophen 325 MG Tablet 650 MG PO ×2 (09:36→16:32)
[2021-10-09] MEDS: Multivitamin (Healthy Eyes) Capsule 1 CAP PO ×2 (09:36→18:24)
[2021-10-09] MEDS: Senna/Docusate Sodium 1 Tablet 2 TABLET PO (09:36)
[2021-10-09] MEDS: oxyCODONE 5 MG Tablet PO ×2 (09:36→16:32)
[2021-10-09] MEDS: Calcium (Elemental) 500 MG Tablet PO (09:37)
[2021-10-09] MEDS: Multivitamins,Therapeutic Tablet 1 TABLET PO (09:37)
--- NOTE | 2021-10-09 11:18 | CASEMGMT ---
Addendum entered by Rosanna Meyer 10/09/21 11:45: Correction, Pt's daughter name is Yuli not Yanet. Original Note: Social Work Note SW in to speak with pt regarding discharge plans. Pt is alert and orientated and engages appropriately in conversation. SW spoke with pt regarding SNF. Pt agreeable to SNF. Patient was provided a list of SNF providers including quality and resource use data and consistent with the patient?s preferred geographic region, medical needs, and insurance network. Pt reviewed lists, [facility] Pt states that her daughter Yanet mentioned [facility] and mentioned her staying there as well. SW informed pt that her going to [facility] would be private pay. Pt states to call her daughter Yanet to discuss SNF and to inform her pt has decided [facility]. SW asked pt about who will be assisting her while she is at SNF. Pt states that between her daughter and [facility] they will be able to assist pt. Pt states that pt's 's brother who lives in [place] and is retired mentioned coming to [place] to stay with her too.SW informed pt that this worker will call her daughter Yanet regarding SNF. Pt states understanding. SW placed a call to pt's daughter Yanet and introduced self and role at [facility]. SW informed Yanet that pt stated her choices for SNF are [facility] and [facility]. Yanet states to have pt go to [facility]. SW explained that pt will need pre-cert and will remain at [facility] until pre-cert is obtained. Yanet states understanding. SW in to speak with pt. SW updated pt that this worker called her daughter Yanet and Yanet stated preferred provider is [facility]. Pt agreeable to TCU. SW explained that pt will need pre-cert. Pt states understanding. SW placed a call to [facility] with TCU. TCU is able to accept pt and will submit for pre-cert. Plan: TCU pending pre-cert Rosanna Meyer ORGAN GRINDER, ECHOCARDIOLOGIST
--- NOTE | 2021-10-09 12:28 | PCM.PN.HOSP ---
Documented by User: Asha Berger NP, CHICK GRADER-C 10/09/21 12:31 Subjective Subjective Patient seen and examined. Reports pain 6/10. Amenable to SNF for rehab. Denies other symptoms or complaints. Objective Data Objective Data Vital Signs: Vital Signs Temp Pulse Resp BP Pulse Ox 97.4 F L 81 16 123/48 H 100 10/09/21 08:30 10/09/21 08:30 10/09/21 08:30 10/09/21 08:30 10/09/21 08:30 Oxygen Flow Rate (L/min) 4 Oxygen Delivery Method Room Air Weight: 113 lb 6.4 oz Body Mass Index (BMI) 23.7 Intake & Output: Intake and Output for Last 24 Hours 10/07/21 10/08/21 10/09/21 23:59 23:59 23:59 Intake Total 1875 / 1875 1527.5 / 1527.5 Output Total 1350 / 1350 200 / 200 Balance 525 / 525 1327.5 / 1327.5 Lab / Micro Data Result Diagrams: 10/09/21 05:36 10/09/21 05:36 Labs: Laboratory Results - last 24 hr 10/08/21 13:09: POC Glucose 167 H 10/08/21 16:42: POC Glucose 195 H 10/08/21 21:58: POC Glucose 235 H 10/09/21 05:36: WBC 8.0, RBC 2.81 L, Hgb 8.2 L, Hct 24.6 L, MCV 87.5, MCH 29.2, MCHC 33.3, RDW Std Deviation 45.0 H, RDW Coeff of Evelio 13.9, Plt Count 105 L, MPV 11.7, Immature Gran % (Auto) 0.400, Neut % (Auto) 71.3 H, Lymph % (Auto) 16.8 L, [place] % (Auto) 11.4 H, Eos % (Auto) 0.0, Baso % (Auto) 0.1, Absolute Neuts (auto) 5.7, Absolute Lymphs (auto) 1.34, Nucleated RBC % 0 10/09/21 05:36: Sodium 131 L, Potassium 3.9, Chloride 104, Carbon Dioxide 22.0, Anion Gap 5, BUN 9, Creatinine 0.52 L, Estim Creat Clear Calc 37.65, Est GFR (MDRD) Af Amer 148, Est GFR (MDRD) Non-Af 122, BUN/Creatinine Ratio 17.5, Glucose 176 H, Calcium 7.8 L 10/09/21 06:19: POC Glucose 164 H Radiography Diagnostic Testing: Radiology Impression Hip/Pelvis X-Ray 10/08/21 10:00 IMPRESSION: Intraoperative imaging provided for open reduction and fixation of the intertrochanteric fracture using a gamma nail. Electronically Signed: Maikol Shin MD at 14:22 EDT , Physical Exam Const alert, oriented x3 and no apparent distress Orientation / Consciousness: awake, oriented to person, oriented to place and oriented to time HEENT normocephalic and moist oral mucous membranes Eyes PERRL, EOMs intact bilaterally and conjunctivae normal Neck no lymphadenopathy Resp normal respiratory effort and clear to auscultation bilaterally Cardio regular rate, regular rhythm and no murmurs Peripheral Pulses: pulses 2+ throughout GI normal to inspection, nondistended, normoactive bowel sounds, non-tender and non-distended Extremity normal to inspection Skin no rashes or lesions noted Skin Narrative: Postop dressing intact. Lesions: no lesions Rashes: no rashes Trauma: no lacerations or abrasions Neuro CN's II-XII intact bilaterally, no focal motor deficits, no sensory deficits noted and deep tendon reflexes 2+ bilaterally Psych mental status grossly normal and affect normal Assessment & Plan Assessment/Plan (1) Closed fracture of right hip: PLAN: 1. Acute traumatic right hip fracture secondary to mechanical fall-underwent intramedullary nailing 10/08/21. PT/OT. Management per orthopedic medicine. Amenable to SNF for rehab at discharge. 2. Type 2 diabetes mellitus-Metformin on hold. Accu-Cheks with sliding scale insulin. 3. Hypertension-stable, continue lisinopril and atenolol. 4. Bilateral carotid artery stenosis-continue aspirin, statin. 5. Hyperlipidemia-continue statin. DVT prophylaxis-Lovenox subcu This patient was seen by EFRAIN Rosario under the supervision of Dr. Cueto. Discharge planning: SNF pending acceptance. Time spent examining patient, reviewing data and subsequent management of care: 12 Minutes Documented by User: Dr. Stanley Cueto DO 10/09/21 13:04 Objective Data Lab / Micro Data Result Diagrams: 10/09/21 05:36 10/09/21 05:36 Charges/Coding Addendum Addendum: Patient was seen and examined independently of Asha Berger today, patient's hemoglobin today was 8.2, we are awaiting approval for the patient to go to an extended care facility for short-term rehab services. This approval may not take place until Tuesday or Tuesday of next week however. On examination she appeared in good health and spirits, she does not appear to be in any distress. Vital signs as documented. Skin warm and dry and without overt rashes. Neck without JVD, thyroid appears normal, trachea is midline, neck is supple. Lungs clear, normal air movement was noted. Heart exam notable for regular rhythm, normal sounds and absence of murmurs, rubs or gallops. Abdomen unremarkable and without evidence of organomegaly, masses, or abdominal aortic enlargement, bowel sounds are present in all 4 quadrants, no abdominal tenderness was noted. Extremities nonedematous, no cyanosis was noted, no clubbing was noted. Neuro: Cranial nerves II through XII are grossly intact, no focal motor deficits were noted, sensation to light touch and pinprick is intact, motor exam 5/5 throughout. Psych: Patient is alert and oriented x3, she does not appear anxious or depressed, she does not appear agitated. #1 right intertrochanteric fracture-status post insertion of intramedullary nail right femur-postop day #1-PT and OT will see the patient, we are awaiting approval for the patient to go to an extended care facility for short-term rehab services #2 essential hypertension-patient will remain on her current medications #3 hyperlipidemia-patient is on a statin currently #4 hypothyroidism-patient is on Synthroid #5 acute blood loss anemia secondary to right intertrochanteric fracture-labs will be monitored as necessary, patient does not need a transfusion at this time I have reviewed Asha Berger's progress note including her medical assessment and plan of care and with the above additions endorse it. Total clinical time spent by myself addressing the patient's medical issues, reviewing the patient's medical data, and communicating with the patient's caregivers: 22 minutes Visit Charges Inpatient E&M: 77518 Subs Hosp L3
[2021-10-09] MEDS: Cyanocobalamin 500 MCG Tablet PO (12:37)
[2021-10-09] MEDS: Lisinopril 2.5 MG Tablet PO (12:37)
[2021-10-09 12:45] LABS: Bedside Glucose 221 mg/dL (74-106)
[2021-10-09 14:10] VITALS: BP 126/47; PULSE 84; RESP 16; TEMP 36.8; O2SAT 100
[2021-10-09 16:46] LABS: Bedside Glucose 199 mg/dL (74-106)
--- NOTE | 2021-10-09 17:00 | CASEMGMT ---
Social Work Note SW placed Green Sheet on pt's chart in the event pre-cert is obtained. Pt will need COVID test on day of discharge. Plan: TCU pending pre-cert Rosanna LUEVANO, STACKER ATTENDANT
--- NOTE | 2021-10-09 17:03 | PCM.PN.ORT ---
Subjective Subjective Patient seen and examined. Denies any new complaints. Ambulating with assistance today. Reports pain with ambulation, but tolerable. Denies fevers, chills, nausea vomiting, chest pain or shortness of breath. Objective Data Objective Data Vital Signs: Vital Signs Temp Pulse Resp BP Pulse Ox 98.2 F 84 16 126/47 H 100 10/09/21 14:10 10/09/21 14:10 10/09/21 14:10 10/09/21 14:10 10/09/21 14:10 Oxygen Flow Rate (L/min) 4 Oxygen Delivery Method Room Air Weight: 113 lb 6.4 oz Body Mass Index (BMI) 23.7 Intake & Output: Intake and Output for Last 24 Hours 10/07/21 10/08/21 10/09/21 23:59 23:59 23:59 Intake Total 1875 / 1875 1527.5 / 1527.5 Output Total 1350 / 1350 200 / 200 Balance 525 / 525 1327.5 / 1327.5 Lab / Micro Data Result Diagrams: 10/09/21 05:36 10/09/21 05:36 Labs: Laboratory Results - last 24 hr 10/08/21 16:42: POC Glucose 195 H 10/08/21 21:58: POC Glucose 235 H 10/09/21 05:36: WBC 8.0, RBC 2.81 L, Hgb 8.2 L, Hct 24.6 L, MCV 87.5, MCH 29.2, MCHC 33.3, RDW Std Deviation 45.0 H, RDW Coeff of Evelio 13.9, Plt Count 105 L, MPV 11.7, Immature Gran % (Auto) 0.400, Neut % (Auto) 71.3 H, Lymph % (Auto) 16.8 L, [place] % (Auto) 11.4 H, Eos % (Auto) 0.0, Baso % (Auto) 0.1, Absolute Neuts (auto) 5.7, Absolute Lymphs (auto) 1.34, Nucleated RBC % 0 10/09/21 05:36: Sodium 131 L, Potassium 3.9, Chloride 104, Carbon Dioxide 22.0, Anion Gap 5, BUN 9, Creatinine 0.52 L, Estim Creat Clear Calc 37.65, Est GFR (MDRD) Af Amer 148, Est GFR (MDRD) Non-Af 122, BUN/Creatinine Ratio 17.5, Glucose 176 H, Calcium 7.8 L 10/09/21 06:19: POC Glucose 164 H 10/09/21 12:36: POC Glucose 221 H 10/09/21 16:36: POC Glucose 199 H Physical Exam Narrative General - A&Ox3, NAD. VSS/AF Right lower extremity -incisional dressing C/D/I. SILT Sural, Saphenous, SPN, DPN, Tibial N. distributions. DP, PT 2+. BCR. DF, PF, EHL 5/5. No calf TTP. Assessment & Plan Assessment/Plan (1) Closed fracture of right hip: PLAN: POD#1 s/p right hip CMN - Pain control - Medicine following for medical management - PT/OT-weightbearing as tolerated lower extremity - DVT PPX -okay for aspirin upon discharge from my standpoint, 81 mg daily - Case management - D/C planning
[2021-10-09 20:15] VITALS: BP 104/66; PULSE 80; RESP 16; TEMP 36.7; O2SAT 97
[2021-10-09] MEDS: Atorvastatin Calcium 10 MG Tablet 5 MG PO (21:12)
[2021-10-09] MEDS: Enoxaparin 40 MG/0.4 ML Syringe SC (21:12)
[2021-10-09 21:26] LABS: Bedside Glucose 219 mg/dL (74-106)
[2021-10-10 02:15] VITALS: BP 141/56; PULSE 86; RESP 16; TEMP 36.8; O2SAT 94
[2021-10-10] MEDS: Acetaminophen 325 MG Tablet 650 MG PO ×2 (06:34→14:28)
[2021-10-10] MEDS: Insulin Lispro 100 UNIT/ML INSULN.PEN SC ×4 (06:34→21:39)
[2021-10-10] MEDS: Levothyroxine 50 MCG Tablet PO (06:35)
[2021-10-10 06:45] LABS: Bedside Glucose 242 mg/dL (74-106)
[2021-10-10 07:34] VITALS: O2SAT 94
[2021-10-10 08:03] VITALS: BP 133/42; PULSE 84; RESP 16; TEMP 36.8; O2SAT 96
[2021-10-10] MEDS: Cholecalciferol (VIT D3) 25 MCG TABLET (1,000 UNITS) PO (08:08)
[2021-10-10] MEDS: metFORMIN (XR) 500 MG Tablet PO ×3 (08:08→18:25)
[2021-10-10] MEDS: Multivitamin (Healthy Eyes) Capsule 1 CAP PO ×2 (08:08→18:26)
[2021-10-10] MEDS: Multivitamins,Therapeutic Tablet 1 TABLET PO (08:08)
[2021-10-10] MEDS: Atenolol 25 MG Tablet PO ×2 (08:08→21:39)
[2021-10-10] MEDS: Calcium (Elemental) 500 MG Tablet PO (08:08)
[2021-10-10] MEDS: Senna/Docusate Sodium 1 Tablet 2 TABLET PO (08:12)
[2021-10-10] MEDS: oxyCODONE 5 MG Tablet PO (08:12)
[2021-10-10] MEDS: Lisinopril 2.5 MG Tablet PO (11:52)
[2021-10-10] MEDS: Cyanocobalamin 500 MCG Tablet PO (11:52)
[2021-10-10 11:54] VITALS: BP 112/47; PULSE 80
[2021-10-10 12:06] LABS: Bedside Glucose 240 mg/dL (74-106)
--- NOTE | 2021-10-10 13:56 | PN.HOSP_ITS ---
Documented by User: Asha Berger NP, HEAD STILL OPERATOR-C 10/10/21 14:00 Subjective Subjective Patient seen and examined. Working with therapy. Pain controlled. Denies symptoms or complaints. Objective Data Objective Data Vital Signs: Vital Signs Temp Pulse Resp BP Pulse Ox 98.3 F 80 16 112/47 L 96 10/10/21 08:03 10/10/21 11:54 10/10/21 08:03 10/10/21 11:54 10/10/21 08:03 Oxygen Flow Rate (L/min) 4 Oxygen Delivery Method Room Air Weight: 113 lb 6.4 oz Body Mass Index (BMI) 23.7 Intake & Output: Intake and Output for Last 24 Hours 10/08/21 10/09/21 10/10/21 23:59 23:59 23:59 Intake Total 1875 / 1875 3485.0 / 3485.0 918.75 / 918.75 Output Total 1350 / 1350 600 / 600 800 / 800 Balance 525 / 525 2885.0 / 2885.0 118.75 / 118.75 Lab / Micro Data Result Diagrams: 10/09/21 05:36 10/09/21 05:36 Labs: Laboratory Results - last 24 hr 10/09/21 16:36: POC Glucose 199 H 10/09/21 21:09: POC Glucose 219 H 10/10/21 06:32: POC Glucose 242 H 10/10/21 11:51: POC Glucose 240 H Physical Exam Const alert, oriented x3 and no apparent distress Orientation / Consciousness: awake, oriented to person, oriented to place and oriented to time HEENT normocephalic and moist oral mucous membranes Eyes PERRL, EOMs intact bilaterally and conjunctivae normal Neck no lymphadenopathy Resp normal respiratory effort and clear to auscultation bilaterally Cardio regular rate, regular rhythm and no murmurs Peripheral Pulses: pulses 2+ throughout GI normal to inspection, nondistended, normoactive bowel sounds, non-tender and non-distended Extremity normal to inspection Skin no rashes or lesions noted Lesions: no lesions Rashes: no rashes Trauma: no lacerations or abrasions Neuro CN's II-XII intact bilaterally, no focal motor deficits, no sensory deficits noted and deep tendon reflexes 2+ bilaterally Psych mental status grossly normal and affect normal Assessment & Plan Assessment/Plan (1) Closed fracture of right hip: PLAN: 1. Acute traumatic right hip fracture secondary to mechanical fall- underwent intramedullary nailing 10/08/21. PT/OT. Management per orthopedic medicine. Amenable to SNF for rehab at discharge. 2. Type 2 diabetes mellitus-Metformin on hold. Accu-Cheks with sliding scale insulin. 3. Hypertension-stable, continue lisinopril and atenolol. 4. Bilateral carotid artery stenosis-continue aspirin, statin. 5. Hyperlipidemia-continue statin. DVT prophylaxis-Lovenox subcu This patient was seen by Asha Berger, SARINA-C under the supervision of Dr. Cueto. Discharge planning: SNF pending acceptance. Time spent examining patient, reviewing data and subsequent management of care: 12 Minutes Documented by User: Dr. Stanley Cueto, 10/10/21 16:53 Objective Data Lab / Micro Data Result Diagrams: 10/09/21 05:36 10/09/21 05:36 Charges/Coding Addendum Addendum: Patient was seen and examined independently of Asha Berger, she is alert, sitting in a chair, does not appear to be in any distress. On examination she appeared in good health and spirits, she does not appear to be in any distress. Vital signs as documented. Skin warm and dry and without overt rashes. Neck without JVD, thyroid appears normal, trachea is midline, neck is supple. Lungs clear, normal air movement was noted. Heart exam notable for regular rhythm, normal sounds and absence of murmurs, rubs or gallops. Abdomen unremarkable and without evidence of organomegaly, masses, or abdominal aortic enlargement, bowel sounds are present in all 4 quadrants, no abdominal tenderness was noted. Extremities nonedematous, no cyanosis was noted, no clubbing was noted. Neuro: Cranial nerves II through XII are grossly intact, no focal motor deficits were noted, sensation to light touch and pinprick is intact, motor exam 5/5 throughout. Psych: Patient is alert and oriented x3, she does not appear anxious or depressed, she does not appear agitated. #1 right intertrochanteric fracture-status post insertion of intramedullary nail right femur-postop day #2-PT and OT are seeing the patient, we are awaiting approval for the patient to go to an extended care facility for short-term rehab services #2 essential hypertension-patient will remain on her current medications #3 hyperlipidemia-patient is on a statin currently #4 hypothyroidism-patient is on Synthroid #5 acute blood loss anemia secondary to right intertrochanteric fracture-labs will be monitored as necessary, patient does not need a transfusion at this time. H&H will be repeated tomorrow I have reviewed Asha Berger's progress note including her medical assessment and plan of care and with the above additions endorse it. Total clinical time spent by myself addressing the patient's medical issues, reviewing the patient's medical data, and collaborating with the patient's care team: 20- minute Visit Charges Inpatient E&M: 15932 Subs Hosp L2
[2021-10-10 14:00] VITALS: BP 120/45; PULSE 95; RESP 16; TEMP 36.3; O2SAT 95
[2021-10-10 17:16] LABS: Bedside Glucose 180 mg/dL (74-106)
[2021-10-10 20:00] VITALS: BP 114/44; PULSE 85; RESP 16; TEMP 36.6; O2SAT 98
[2021-10-10] MEDS: Enoxaparin 40 MG/0.4 ML Syringe SC (21:39)
[2021-10-10] MEDS: Atorvastatin Calcium 10 MG Tablet 5 MG PO (21:39)
[2021-10-10] MEDS: Magnesium Citrate 300 ML 150 ML PO (21:40)
[2021-10-10 21:56] LABS: Bedside Glucose 267 mg/dL (74-106)
[2021-10-11] VITALS (9 sets, daily range): BP systolic 115–145; BP diastolic 66–84; PULSE 76–87; RESP 14–16; TEMP 36.6–37.2; O2SAT 96–99
--- NOTE | 2021-10-11 04:06 | PCM.HOSP.N ---
Hospitalist Note Patient with worsening bleeding from incision, needing continuous dressing changes, will hold lovenox. Will obtain CBC now and also CMP. Requested that patient Surgeon be immediately notified for evaluation and for potential imaging at Surgery discretion pending their evaluation. Noted last evaluation 10/09/21. Notable ecchymoses elisabet-incisional but also into the groin and extremity significantly worsened per discussion with staff from day prior even.
[2021-10-11 05:00] LABS: Absolute Neutrophil Count 6.4 X10^3/uL (2.0-7.7); Basophil# 0.01 X10^3/uL; Basophil% 0.1 % (0-1); Eosinophil# 0.03 X10^3/uL; Eosinophils% 0.4 % (0-5); Hematocrit 19.9 % (37-47); Hemoglobin 6.7 g/dL (12.0-15.0); Mean Corp Hgb Conc 33.7 g/dL (32-36); Mean Corpuscular Hgb 29.1 pg (27.0-32.0); Mean Corpuscular Volume 86.5 fL (81-99); Mean Platelet Vol. 10.8 fl (6.2-12.0); Monocyte# 0.74 X10^3/uL; Monocyte% 9.3 % (0-10); NRBC Flagged by Analyzer 0.3 % (0-5); Neutrophil # 6.37 X10^3/uL (2.7-7.7); Neutrophil % 79.6 % (47-70); Platelet Count 157 K/mm3 (150-450); RBC Distribution Width CV 13.8 % (11.6-14.6); RBC Distribution Width SD 43.4 fl (35.1-43.9)
[2021-10-11 05:17] LABS: ALB/GLOB Ratio 0.8 RATIO (0.9-2.4); AST(SGOT) 24 U/L (15-37); Alanine Aminotransfer ALT/SGPT 18 U/L (13-56); Albumin, Serum 2.1 g/dL (3.2-5.0); Alkaline Phosphatase 77 U/L (45-117); Anion Gap 6 (5-15); BUN 11 mg/dL (7-18); BUN/Creat Ratio 26.1 RATIO (10-20); Calcium,Total 7.5 mg/dL (8.5-10.1); Chloride 102 mmol/L (98-107); Creatinine, Serum 0.42 mg/dL (0.55-1.02); EST Glomerular Filtration Rate 154 mL/min (>60); Est Glom Filt Rate - Afr Amer 186 mL/min (>60); Estimated Creatinine Clearance 37.65 ml/min; Globulin 2.6 g/dL (2.2-4.2); Glucose 180 mg/dL (74-106); Potassium 3.5 mmol/L (3.5-5.1); Protein, Total 4.7 g/dL (6.4-8.2); Sodium Level 132 mmol/L (136-145)
[2021-10-11] MEDS: Levothyroxine 50 MCG Tablet PO (06:33)
[2021-10-11] MEDS: Insulin Lispro 100 UNIT/ML INSULN.PEN SC ×3 (06:35→21:48)
[2021-10-11 06:41] LABS: Bedside Glucose 194 mg/dL (74-106)
[2021-10-11] MEDS: Multivitamin (Healthy Eyes) Capsule 1 CAP PO ×2 (09:17→16:36)
--- NOTE | 2021-10-11 09:17 | PCM.PN.ORT ---
Subjective Subjective Patient seen and examined. I was notified early this morning regarding worsening ecchymosis and swelling as well as sanguinous drainage about her incisions. An H&H was ordered demonstrated acute blood loss anemia and patient is being transfused 2 units packed red blood cells. She reports she has a history of easy bruising. She states she felt increased fatigue yesterday, denies any palpitations or heart racing, lightheadedness, fevers, chills, nausea vomiting, chest pain or shortness of breath. She says her pain is a 4/10 at its worst. Reports constipation, positive flatus. Denies abdominal pain. Objective Data Objective Data Vital Signs: Vital Signs Temp Pulse Resp BP Pulse Ox 98.4 F 78 16 124/66 H 97 10/11/21 09:11 10/11/21 09:11 10/11/21 09:11 10/11/21 09:11 10/11/21 09:11 Oxygen Flow Rate (L/min) 4 Oxygen Delivery Method Room Air Weight: 113 lb 6.4 oz Body Mass Index (BMI) 23.7 Intake & Output: Intake and Output for Last 24 Hours 10/09/21 10/10/21 10/11/21 23:59 23:59 23:59 Intake Total 3485.0 / 3485.0 1158.75 / 1378.75 220 / 220 Output Total 600 / 600 1100 / 1200 100 / 100 Balance 2885.0 / 2885.0 58.75 / 178.75 120 / 120 Lab / Micro Data Result Diagrams: 10/11/21 04:45 10/11/21 04:45 Labs: Laboratory Results - last 24 hr 10/10/21 11:51: POC Glucose 240 H 10/10/21 17:08: POC Glucose 180 H 10/10/21 21:36: POC Glucose 267 H 10/11/21 04:45: WBC 8.0, RBC 2.30 L, Hgb 6.7 L, Hct 19.9 L, MCV 86.5, MCH 29.1, MCHC 33.7, RDW Std Deviation 43.4, RDW Coeff of Evelio 13.8, Plt Count 157, MPV 10.8, Immature Gran % (Auto) 0.600, Neut % (Auto) 79.6 H, Lymph % (Auto) 10.0 L, [place] % (Auto) 9.3, Eos % (Auto) 0.4, Baso % (Auto) 0.1, Absolute Neuts (auto) 6.4, Absolute Lymphs (auto) 0.80 L, Nucleated RBC % 0.3 10/11/21 04:45: Sodium 132 L, Potassium 3.5, Chloride 102, Carbon Dioxide 24.0, Anion Gap 6, BUN 11, Creatinine 0.42 L, Estim Creat Clear Calc 37.65, Est GFR (MDRD) Af Amer 186, Est GFR (MDRD) Non-Af 154, BUN/Creatinine Ratio 26.1 H, Glucose 180 H, Calcium 7.5 L, Total Bilirubin 0.70, AST 24, ALT 18, Alkaline Phosphatase 77, Total Protein 4.7 L, Albumin 2.1 L, Globulin 2.6, Albumin/Globulin Ratio 0.8 L 10/11/21 06:00: Blood Type A POSITIVE, Antibody Screen NEGATIVE, Crossmatch See Detail 10/11/21 06:34: POC Glucose 194 H Physical Exam Narrative General - A&Ox3, NAD. VSS/AF Right lower extremity -incisional dressing shows partial saturation of sanguinous drainage. Worsening ecchymosis noted along the medial thigh as well as increased global swelling of the right thigh. Compartments are soft and compressible. SILT Sural, Saphenous, SPN, DPN, Tibial N. distributions. DP, PT 2+. BCR. DF, PF, EHL 5/5. No calf TTP. Assessment & Plan Assessment/Plan (1) Closed fracture of right hip: PLAN: POD#3 s/p right hip CMN - Pain control - Medicine following for medical management - PT/OT-weightbearing as tolerated lower extremity - -2 units packed red blood cells currently transfusing. Dry sterile dressing changes as needed. - DVT PPX -recommend holding Lovenox in the next 48 hours and likely transition to aspirin upon discharge. Mechanical prophylaxis with SCDs. Early mobilization. I will reevaluate the patient tomorrow. No planned surgical intervention at this time. Please not hesitate to call if any questions or concerns arise.
[2021-10-11] MEDS: Cholecalciferol (VIT D3) 25 MCG TABLET (1,000 UNITS) PO (09:18)
[2021-10-11] MEDS: Multivitamins,Therapeutic Tablet 1 TABLET PO (09:18)
[2021-10-11] MEDS: Calcium (Elemental) 500 MG Tablet PO (09:18)
[2021-10-11] MEDS: Atenolol 25 MG Tablet PO ×2 (09:18→21:18)
[2021-10-11] MEDS: metFORMIN (XR) 500 MG Tablet PO ×3 (09:19→16:36)
--- NOTE | 2021-10-11 10:01 | PN.HOSP_ITS ---
Documented by User: Asha Berger NP, SALES AND EVENTS COORDINATOR-C 10/11/21 10:10 Subjective Subjective Patient seen and examined. Receiving blood transfusion. Denies current symptoms or complaints. Right hip with significant ecchymosis. She reports pain is well controlled. Denies lightheadedness, shortness of breath, chest pain. Objective Data Objective Data Vital Signs: Vital Signs Temp Pulse Resp BP Pulse Ox 98.4 F 78 16 124/66 H 97 10/11/21 09:11 10/11/21 09:11 10/11/21 09:11 10/11/21 09:11 10/11/21 09:11 Oxygen Flow Rate (L/min) 4 Oxygen Delivery Method Room Air Weight: 113 lb 6.4 oz Body Mass Index (BMI) 23.7 Intake & Output: Intake and Output for Last 24 Hours 10/09/21 10/10/21 10/11/21 23:59 23:59 23:59 Intake Total 3485.0 / 3485.0 1158.75 / 1378.75 220 / 220 Output Total 600 / 600 1100 / 1200 100 / 100 Balance 2885.0 / 2885.0 58.75 / 178.75 120 / 120 Lab / Micro Data Result Diagrams: 10/11/21 04:45 10/11/21 04:45 Labs: Laboratory Results - last 24 hr 10/10/21 11:51: POC Glucose 240 H 10/10/21 17:08: POC Glucose 180 H 10/10/21 21:36: POC Glucose 267 H 10/11/21 04:45: WBC 8.0, RBC 2.30 L, Hgb 6.7 L, Hct 19.9 L, MCV 86.5, MCH 29.1, MCHC 33.7, RDW Std Deviation 43.4, RDW Coeff of Ev[place] 13.8, Plt Count 157, MPV 10.8, Immature Gran % (Auto) 0.600, Neut % (Auto) 79.6 H, Lymph % (Auto) 10.0 L, [place] % (Auto) 9.3, Eos % (Auto) 0.4, Baso % (Auto) 0.1, Absolute Neuts (auto) 6.4, Absolute Lymphs (auto) 0.80 L, Nucleated RBC % 0.3 10/11/21 04:45: Sodium 132 L, Potassium 3.5, Chloride 102, Carbon Dioxide 24.0, Anion Gap 6, BUN 11, Creatinine 0.42 L, Estim Creat Clear Calc 37.65, Est GFR (MDRD) Af Amer 186, Est GFR (MDRD) Non-Af 154, BUN/Creatinine Ratio 26.1 H, Glucose 180 H, Calcium 7.5 L, Total Bilirubin 0.70, AST 24, ALT 18, Alkaline Phosphatase 77, Total Protein 4.7 L, Albumin 2.1 L, Globulin 2.6, [place] min/Globulin Ratio 0.8 L 10/11/21 06:00: Blood Type A POSITIVE, Antibody Screen NEGATIVE, Crossmatch See Detail 10/11/21 06:34: POC Glucose 194 H Physical Exam Const alert, oriented x3 and no apparent distress Orientation / Consciousness: awake, oriented to person, oriented to place and oriented to time HEENT normocephalic and moist oral mucous membranes Eyes PERRL, EOMs intact bilaterally and conjunctivae normal Neck no lymphadenopathy Resp normal respiratory effort and clear to auscultation bilaterally Cardio regular rate, regular rhythm and no murmurs Peripheral Pulses: pulses 2+ throughout GI normal to inspection, nondistended, normoactive bowel sounds, non-tender and non-distended Extremity normal to inspection Skin no rashes or lesions noted Skin Narrative: Right hip postop dressing with sanguinous drainage, extensive ecchymosis right hip extending down right leg and abdomen. Lesions: no lesions Rashes: no rashes Trauma: no lacerations or abrasions Neuro CN's II-XII intact bilaterally, no focal motor deficits, no sensory deficits noted and deep tendon reflexes 2+ bilaterally Psych mental status grossly normal and affect normal Assessment & Plan Assessment/Plan (1) Closed fracture of right hip: PLAN: 1. Acute traumatic right hip fracture secondary to mechanical fall- underwent intramedullary nailing 10/08/21. PT/OT. Management per orthopedic medicine. SNF for rehab pending acceptance. 2. Acute blood loss anemia, expected outcome secondary to #1-orthopedic medicine following closely. 2 units PRBC for hemoglobin 6.7. Trend H&H. Lovenox on hold. Left hip area with extensive ecchymosis. 3. Type 2 diabetes mellitus-continue Metformin. Accu-Cheks with sliding scale insulin. 4. Hypertension-stable, continue lisinopril and atenolol. 5. Bilateral carotid artery stenosis-on aspirin, statin. Asa temporarily held. 6. Hyperlipidemia-continue statin. DVT prophylaxis-SCDs This patient was seen by Asha Berger NP-C under the supervision of Dr. Cueto. Discharge planning: SNF pending acceptance. Time spent examining patient, reviewing data and subsequent management of care: 13 Minutes Documented by User: Dr. Stanley Cueto, 10/11/21 14:42 Objective Data Lab / Micro Data Result Diagrams: 10/11/21 04:45 10/11/21 04:45 Charges/Coding Addendum Addendum: Patient was seen and examined today independently of Asha Berger, her hemoglobin this morning was low at 6.7, there is a large area of old ecchymosis over the patient's inner right thigh, patient was seen today by orthopedic surgery and orthopedic surgery does not feel the patient needs any surgical intervention. Patient was given 2 units of packed red blood cells today, we are awaiting a repeat H&H today. On examination she appeared in good health and spirits, she does not appear to be in any distress. Vital signs as documented. Skin warm and dry and without overt rashes. Neck without JVD, thyroid appears normal, trachea is midline, neck is supple. Lungs clear, normal air movement was noted. Heart exam notable for regular rhythm, normal sounds and absence of murmurs, rubs or gallops. Abdomen unremarkable and without evidence of organomegaly, masses, or abdominal aortic enlargement, bowel sounds are present in all 4 quadrants, no abdominal tenderness was noted. Extremities there is generalized edema of the patient's right upper leg with evidence of old ecchymosis in the area, no cyanosis was no teresa, no clubbing was noted. Neuro: Cranial nerves II through XII are grossly intact, no focal motor deficits were noted, sensation to light touch and pinprick is intact, motor exam 5/5 throughout. Psych: Patient is alert and oriented x3, she does not appear anxious or depressed, she does not appear agitated. #1 right intertrochanteric fracture-status post insertion of intramedullary nail right femur-postop day #3-PT and OT are seeing the patient, we are awaiting approval for the patient to go to an extended care facility for short-term rehab services #2 essential hypertension-patient will remain on her current medications #3 hyperlipidemia-patient is on a statin currently #4 hypothyroidism-patient is on Synthroid #5 acute blood loss anemia secondary to right intertrochanteric fracture with expected blood loss requiring blood transfusion-patient's CBC will be rechecked tomorrow, she will have another H&H today after she receives her second unit of blood. I have reviewed Asha Berger's progress note including her medical assessment and plan of care and with the above additions endorse it. Total clinical time spent by myself addressing patient's medical issues, reviewing patient's medical data, and collaborating with the patient's care team: 20 minutes Visit Charges Inpatient E&M: 18094 Subs Hosp L2
[2021-10-11 11:06] LABS: Bedside Glucose 271 mg/dL (74-106)
[2021-10-11] MEDS: Cyanocobalamin 500 MCG Tablet PO (11:50)
[2021-10-11] MEDS: Lisinopril 2.5 MG Tablet PO (11:51)
[2021-10-11 16:10] LABS: Bedside Glucose 213 mg/dL (74-106)
[2021-10-11 17:00] LABS: Bedside Glucose 129 mg/dL (74-106)
[2021-10-11 20:29] LABS: Hematocrit 31.1 % (37-47); Hemoglobin 10.8 g/dL (12.0-15.0)
[2021-10-11] MEDS: Atorvastatin Calcium 10 MG Tablet 5 MG PO (21:18)
[2021-10-12 00:40] LABS: Bedside Glucose 213 mg/dL (74-106)
[2021-10-12 02:35] VITALS: BP 152/63; PULSE 92; RESP 16; TEMP 37.2; O2SAT 94
[2021-10-12 06:23] LABS: Absolute Lymphocyte Count 1.02 X10^3/uL (0.83-4.51); Absolute Neutrophil Count 6.5 X10^3/uL (2.0-7.7); Basophil# 0.01 X10^3/uL; Basophil% 0.1 % (0-1); Eosinophil# 0.12 X10^3/uL; Eosinophils% 1.4 % (0-5); Hematocrit 29.9 % (37-47); Hemoglobin 10.4 g/dL (12.0-15.0); Lymphocyte # 1.02 X10^3/ul (0.83-4.51); Lymphocyte % 11.9 % (19-41); Mean Corp Hgb Conc 34.8 g/dL (32-36); Mean Corpuscular Hgb 29.5 pg (27.0-32.0); Mean Corpuscular Volume 84.7 fL (81-99); Mean Platelet Vol. 10.4 fl (6.2-12.0); Monocyte# 0.84 X10^3/uL; Monocyte% 9.8 % (0-10); NRBC Flagged by Analyzer 0.7 % (0-5); Neutrophil # 6.47 X10^3/uL (2.7-7.7); Neutrophil % 75.3 % (47-70); Platelet Count 167 K/mm3 (150-450); RBC Distribution Width CV 14.2 % (11.6-14.6); RBC Distribution Width SD 43.7 fl (35.1-43.9); Red Blood Count 3.53 M/mm3 (4.2-5.4); White Blood Count 8.6 K/mm3 (4.4-11.0)
[2021-10-12] MEDS: Levothyroxine 50 MCG Tablet PO (06:26)
[2021-10-12] MEDS: Insulin Lispro 100 UNIT/ML INSULN.PEN SC ×2 (06:27→11:49)
[2021-10-12 06:35] LABS: Bedside Glucose 184 mg/dL (74-106)
[2021-10-12 07:04] LABS: ALB/GLOB Ratio 0.8 RATIO (0.9-2.4); AST(SGOT) 44 U/L (15-37); Alanine Aminotransfer ALT/SGPT 22 U/L (13-56); Albumin, Serum 2.1 g/dL (3.2-5.0); Alkaline Phosphatase 107 U/L (45-117); Anion Gap 5 (5-15); BUN 10 mg/dL (7-18); BUN/Creat Ratio 23.8 RATIO (10-20); Calcium,Total 7.7 mg/dL (8.5-10.1); Chloride 101 mmol/L (98-107); Creatinine, Serum 0.42 mg/dL (0.55-1.02); EST Glomerular Filtration Rate 154 mL/min (>60); Est Glom Filt Rate - Afr Amer 187 mL/min (>60); Estimated Creatinine Clearance 37.65 ml/min; Globulin 2.8 g/dL (2.2-4.2); Glucose 170 mg/dL (74-106); Potassium 4.4 mmol/L (3.5-5.1); Protein, Total 4.9 g/dL (6.4-8.2); Sodium Level 132 mmol/L (136-145)
[2021-10-12 07:20] VITALS: O2SAT 96
[2021-10-12 09:01] VITALS: O2SAT 96
[2021-10-12 09:08] VITALS: BP 133/68; PULSE 83; RESP 18; TEMP 36.9; O2SAT 96
[2021-10-12] MEDS: metFORMIN (XR) 500 MG Tablet PO ×2 (09:17→11:49)
[2021-10-12] MEDS: Atenolol 25 MG Tablet PO (09:17)
[2021-10-12] MEDS: Calcium (Elemental) 500 MG Tablet PO (09:18)
[2021-10-12] MEDS: Cholecalciferol (VIT D3) 25 MCG TABLET (1,000 UNITS) PO (09:18)
[2021-10-12] MEDS: Multivitamins,Therapeutic Tablet 1 TABLET PO (09:18)
--- NOTE | 2021-10-12 11:05 | PCM.PN.HOSP ---
Documented by User: Asha Berger NP, LITHOGRAPHIC PLATE MAKER APPRENTICE-C 10/12/21 11:12 Subjective Subjective Patient seen and examined. States pain is controlled. Denies current symptoms or complaints. Patient states she is concerned about her being home by himself while she is in rehab as he has dementia. She states her daughter is staying with him temporarily. Objective Data Objective Data Vital Signs: Vital Signs Temp Pulse Resp BP Pulse Ox 98.4 F 83 18 133/68 H 96 10/12/21 09:08 10/12/21 09:08 10/12/21 09:08 10/12/21 09:08 10/12/21 09:08 Oxygen Flow Rate (L/min) 4 Oxygen Delivery Method Room Air Weight: 113 lb 6.4 oz Body Mass Index (BMI) 23.7 Intake & Output: Intake and Output for Last 24 Hours 10/10/21 10/11/21 10/12/21 23:59 23:59 23:59 Intake Total 1158.75 / 1378.75 1600 / 1600 Output Total 1100 / 1200 700 / 900 400 / 400 Balance 58.75 / 178.75 900 / 700 -400 / -400 Lab / Micro Data Result Diagrams: 10/12/21 06:05 10/12/21 06:05 Labs: Laboratory Results - last 24 hr 10/11/21 06:00: Blood Type A POSITIVE, Antibody Screen NEGATIVE, Crossmatch See Detail 10/11/21 09:05: POC Glucose 271 H 10/11/21 11:50: POC Glucose 213 H 10/11/21 16:34: POC Glucose 129 H 10/11/21 19:45: Hgb 10.8 L, Hct 31.1 L 10/11/21 20:58: POC Glucose 213 H 10/12/21 06:05: Sodium 132 L, Potassium 4.4, Chloride 101, Carbon Dioxide 26.0, Anion Gap 5, BUN 10, Creatinine 0.42 L, Estim Creat Clear Calc 37.65, Est GFR (MDRD) Af Amer 187, Est GFR (MDRD) Non-Af 154, BUN/Creatinine Ratio 23.8 H, Glucose 170 H, Calcium 7.7 L, Total Bilirubin 1.40 H, AST 44 H, ALT 22, Alkaline Phosphatase 107, Total Protein 4.9 L, Albumin 2.1 L, Globulin 2.8, Albumin/Globulin Ratio 0.8 L 10/12/21 06:05: WBC 8.6, RBC 3.53 L, Hgb 10.4 L, Hct 29.9 L, MCV 84.7, MCH 29.5, MCHC 34.8, RDW Std Deviation 43.7, RDW Coeff of Evelio 14.2, Plt Count 167, MPV 10.4, Immature Gran % (Auto) 1.500 H, Neut % (Auto) 75.3 H, Lymph % (Auto) 11.9 L, [place] % (Auto) 9.8, Eos % (Auto) 1.4, Baso % (Auto) 0.1, Absolute Neuts (auto) 6.5, Absolute Lymphs (auto) 1.02, Nucleated RBC % 0.7 10/12/21 06:24: POC Glucose 184 H Physical Exam Const alert, oriented x3 and no apparent distress Orientation / Consciousness: awake, oriented to person, oriented to place and oriented to time HEENT normocephalic and moist oral mucous membranes Eyes PERRL, EOMs intact bilaterally and conjunctivae normal Neck no lymphadenopathy Resp normal respiratory effort and clear to auscultation bilaterally Cardio regular rate, regular rhythm and no murmurs Peripheral Pulses: pulses 2+ throughout GI normal to inspection, nondistended, normoactive bowel sounds, non-tender and non-distended Extremity normal to inspection Skin no rashes or lesions noted Skin Narrative: Right hip postop dressing with sanguinous drainage, extensive ecchymosis right hip extending down right leg and abdomen. Lesions: no lesions Rashes: no rashes Trauma: no lacerations or abrasions Neuro CN's II-XII intact bilaterally, no focal motor deficits, no sensory deficits noted and deep tendon reflexes 2+ bilaterally Psych mental status grossly normal and affect normal Assessment & Plan Assessment/Plan (1) Closed fracture of right hip: PLAN: 1. Acute traumatic right hip fracture secondary to mechanical fall-underwent intramedullary nailing 10/08/21. PT/OT. Management per orthopedic medicine. SNF for rehab pending acceptance. 2. Acute blood loss anemia, expected outcome secondary to #1-orthopedic medicine following closely. S/P 2 units PRBC for hemoglobin 6.7. Lovenox on hold. Left hip area with extensive ecchymosis. Hemoglobin now stable, 10.4. 3. Type 2 diabetes mellitus-continue Metformin. Accu-Cheks with sliding scale insulin. 4. Hypertension-stable, continue lisinopril and atenolol. 5. Bilateral carotid artery stenosis-on aspirin, statin. Asa temporarily held. 6. Hyperlipidemia-continue statin. DVT prophylaxis-SCDs This patient was seen by EFRAIN Rosario under the supervision of Dr. Cueto. Discharge planning: SNF pending acceptance. Time spent examining patient, reviewing data and subsequent management of care: 13 Minutes Documented by User: Dr. Stanley Cueto DO 10/12/21 18:39 Objective Data Lab / Micro Data Result Diagrams: 10/12/21 06:05 10/12/21 06:05
[2021-10-12] MEDS: Cyanocobalamin 500 MCG Tablet PO (11:49)
[2021-10-12] MEDS: Lisinopril 2.5 MG Tablet PO (11:49)
[2021-10-12 12:01] LABS: Bedside Glucose 222 mg/dL (74-106)
--- NOTE | 2021-10-12 12:51 | PN.ORTHO_ITS ---
Subjective Subjective Patient seen and examined. Reports some pain with attempted defecation, otherwise denies new symptoms. Denies any fevers or chills or nausea vomiting, chest pain or shortness of breath. Reports she is having flatus with loose stool. Objective Data Objective Data Vital Signs: Vital Signs Temp Pulse Resp BP Pulse Ox 98.4 F 83 18 133/68 H 96 10/12/21 09:08 10/12/21 09:08 10/12/21 09:08 10/12/21 09:08 10/12/21 09:08 Oxygen Flow Rate (L/min) 4 Oxygen Delivery Method Room Air Weight: 113 lb 6.4 oz Body Mass Index (BMI) 23.7 Intake & Output: Intake and Output for Last 24 Hours 10/10/21 10/11/21 10/12/21 23:59 23:59 23:59 Intake Total 1158.75 / 1378.75 1600 / 1600 Output Total 1100 / 1200 700 / 900 400 / 400 Balance 58.75 / 178.75 900 / 700 -400 / -400 Lab / Micro Data Result Diagrams: 10/12/21 06:05 10/12/21 06:05 Labs: Laboratory Results - last 24 hr 10/11/21 06:00: Crossmatch See Detail 10/11/21 11:50: POC Glucose 213 H 10/11/21 16:34: POC Glucose 129 H 10/11/21 19:45: Hgb 10.8 L, Hct 31.1 L 10/11/21 20:58: POC Glucose 213 H 10/12/21 06:05: Sodium 132 L, Potassium 4.4, Chloride 101, Carbon Dioxide 26.0, Anion Gap 5, BUN 10, Creatinine 0.42 L, Estim Creat Clear Calc 37.65, Est GFR (MDRD) Af Amer 187, Est GFR (MDRD) Non-Af 154, BUN/Creatinine Ratio 23.8 H, Glucose 170 H, Calcium 7.7 L, Total Bilirubin 1.40 H, AST 44 H, ALT 22, Alkaline Phosphatase 107, Total Protein 4.9 L, Albumin 2.1 L, Globulin 2.8, Albumin/Globulin Ratio 0.8 L 10/12/21 06:05: WBC 8.6, RBC 3.53 L, Hgb 10.4 L, Hct 29.9 L, MCV 84.7, MCH 29.5, MCHC 34.8, RDW Std Deviation 43.7, RDW Coeff of Evelio 14.2, Plt Count 167, MPV 10.4, Immature Gran % (Auto) 1.500 H, Neut % (Auto) 75.3 H, Lymph % (Auto) 11.9 L, [place] % (Auto) 9.8, Eos % (Auto) 1.4, Baso % (Auto) 0.1, Absolute Neuts (auto) 6.5, Absolute Lymphs (auto) 1.02, Nucleated RBC % 0.7 10/12/21 06:24: POC Glucose 184 H 10/12/21 11:47: POC Glucose 222 H Physical Exam Narrative General - A&Ox3, NAD. VSS/AF Right lower extremity -incisional dressing shows partial saturation of sanguinous drainage. Stable ecchymosis noted along the medial thigh as well as increased global swelling of the right thigh. Compartments are soft and compressible. SILT Sural, Saphenous, SPN, DPN, Tibial N. distributions. DP, PT 2+. BCR. DF, PF, EHL 5/5. No calf TTP. Assessment & Plan Assessment/Plan (1) Closed fracture of right hip: PLAN: POD#4 s/p right hip CMN - Pain control - Medicine following for medical management - PT/OT-weightbearing as tolerated lower extremity - 2 units packed red blood cells transfused. Hemoglobin is stable. Continued serosanguineous drainage is expected over the next several days. - DVT PPX -recommending 81 mg twice daily aspirin upon discharge. Mechanical prophylaxis with SCDs. Early mobilization. No planned surgical intervention at this time. Please not heitate to call if any questions or concerns arise.
--- NOTE | 2021-10-12 13:02 | TREXTCAR_ITS ---
Documented by User: Asha Berger NP, CONCRETE ANALYST-C 10/12/21 13:08 Diet 10/09/21 14:10 Diet: Cardiac: Calorie-Controlled Is pt able to select menu?: Yes How many daily calories?: 1500 calorie Routine Orders/Code Status Enema Type: Fleetz Enema Frequency: Daily PRN Suppository Type: Dulcolax 10mg Suppository Frequency: Daily PRN Routine Lab Work: - (Repeat CBC in 3 days, then weekly CBC and BMP.) Code Status: Full Code Wound(s) rt elbow: Wound Type: Abrasion RIGHT HIP: Wound Type: Surgical Incision Therapies Weight Bearing: Weight bearing as tolerated Physical Therapy: Eval and Treat Occupational Therapy: Eval and Treat Problem/Diagnosis (1) Closed fracture of right hip: Status: Acute Allergies/Procedures Done in Hospital Allergies No Known Allergies Allergy (Verified 10/07/21 15:15) Procedures: - (intramedullary nailing 10/08/21) Type of Care/Length of Stay Estimated LOS: Convalescent Care Less Than 30 days Type of Care Needed: Skilled Rehab Potential: Fair Prognosis: Fair Additional Orders/Day of Discharge H&P will serve as current which was dated: 10/07/21 Day of Discharge: 10/12/21 Dietary and Speech Recommendations Dietitian Recommendations/Changes: Change diet to 1500 erick/ Cardiac to better meet pt est nutritional needs and d/t pmhx Discharge Plan Admission Admit Date/Time: 10/07/21 16:43 Primary Reason for Your Visit: Hip fracture Attending Provider: Stanley Cueto Primary Care Provider: Kamren Resendez Consulting Providers: Dillon Oswald Discharge Orders/Prescriptions Prescriptions: New acetaminophen [Tylenol] 325 mg Tablet 650 mg PO Q6H PRN PRN (Reason: Pain Score 1-10/Temp > 100.7 F) Qty: 0 RF: 0 oxycodone 5 mg Tablet 5 mg PO Q4H PRN PRN (Reason: Pain Score 4-5) Qty: 0 RF: 0 aspirin 81 mg Tablet,Delayed Release (Dr/Ec) 81 mg PO BID Qty: 0 RF: 0 Continued Vitamin B-12 50 mcg tablet 50 mcg PO DAILY@1200 RF: 0 simvastatin 10 MG tablet 10 mg PO QHS RF: 0 atenolol 25 MG tablet 25 mg PO BID RF: 0 levothyroxine 50 MCG tablet 50 mcg PO DAILY RF: 0 lisinopril 2.5 MG tablet 2.5 mg PO DAILY@1200 RF: 0 multivitamin Tablet 1 tab PO DAILY RF: 0 calcium carbonate [Calcium 600] 600 mg calcium (1,500 mg) Tablet 600 mg PO DAILY RF: 0 metformin 500 mg tablet extended release 24 hr 500 mg PO TID RF: 0 cholecalciferol (vitamin D3) 25 mcg (1,000 unit) Capsule 25 mcg PO DAILY RF: 0 PreserVision AREDS-2 250-90-40-1 mg Capsule 1 tab PO BID RF: 0 Instaflex 1 cap PO/SL DAILY RF: 0 Referrals / Follow Up: Karmen Resendez DO [Primary Care Provider] - In 1 Week Albert Sheridan DO [STAFF PHYSICIAN] - Within 2 Weeks Disposition Disposition (needs filled in before D/C Order can be placed): Long-Term Facility Documented by User: Dr. Stanley Cueto DO 10/12/21 15:30 Allergies/Procedures Done in Hospital Allergies No Known Allergies Allergy (Verified 10/07/21 15:15) Discharge Plan Admission Admit Date/Time: 10/07/21 16:43 Primary Reason for Your Visit: Hip fracture Attending Provider: Stanley Cueto Primary Care Provider: Karmen Resendez Consulting Providers: Dillon Oswald Discharge Orders/Prescriptions Prescriptions: New acetaminophen [Tylenol] 325 mg Tablet 650 mg PO Q6H PRN PRN (Reason: Pain Score 1-10/Temp > 100.7 F) Qty: 0 RF: 0 oxycodone 5 mg Tablet 5 mg PO Q4H PRN PRN (Reason: Pain Score 4-5) Qty: 0 RF: 0 aspirin 81 mg Tablet,Delayed Release (Dr/Ec) 81 mg PO BID Qty: 0 RF: 0 Continued Vitamin B-12 50 mcg tablet 50 mcg PO DAILY@1200 RF: 0 simvastatin 10 MG tablet 10 mg PO QHS RF: 0 atenolol 25 MG tablet 25 mg PO BID RF: 0 levothyroxine 50 MCG tablet 50 mcg PO DAILY RF: 0 lisinopril 2.5 MG tablet 2.5 mg PO DAILY@1200 RF: 0 multivitamin Tablet 1 tab PO DAILY RF: 0 calcium carbonate [Calcium 600] 600 mg calcium (1,500 mg) Tablet 600 mg PO DAILY RF: 0 metformin 500 mg tablet extended release 24 hr 500 mg PO TID RF: 0 cholecalciferol (vitamin D3) 25 mcg (1,000 unit) Capsule 25 mcg PO DAILY RF: 0 PreserVision AREDS-2 250-90-40-1 mg Capsule 1 tab PO BID RF: 0 Instaflex 1 cap PO/SL DAILY RF: 0 Referrals / Follow Up: Karmen Resendez DO [Primary Care Provider] - In 1 Week Albert Sheridan DO [STAFF PHYSICIAN] - Within 2 Weeks Disposition Disposition (needs filled in before D/C Order can be placed): Long-Term Facility
--- NOTE | 2021-10-12 13:08 | PCM.DC.SUM ---
Documented by User: Asha Berger NP, DATA PROCESSING CONTROL CLERK-C 10/12/21 13:12 Providers Date of Admission: 10/07/21 Date of Discharge: 10/12/21 Primary Care Physician: Dr. Karmen Resendez DO Consultations 10/07/21 17:41 Consult: Orthopedics Routine Consulting Provider: Dillon Oswald Reason for Consult: R Hip Fracture EMERGENT Consult: No MD Notified: Yes Date Notified: 10/07/21 Time Notified: 16:48 Method of Notification: Spoke on phone Reason For Visit: [facility] HIP FRACTURE Diagnosis Discharge Diagnosis (1) Closed fracture of right hip: Status: Acute Code(s): S72.001A - Fracture of unspecified part of neck of right femur, initial encounter for closed fracture Medications at Discharge Home Medications atenolol 25 mg PO BID 01/03/20 levothyroxine 50 mcg PO DAILY 01/03/20 lisinopril 2.5 mg PO DAILY@1200 01/03/20 simvastatin 10 mg PO QHS 01/03/20 cyanocobalamin (vitamin B-12) 50 mcg tablet 50 mcg PO DAILY@1200 01/10/20 Instaflex 1 cap PO/SL DAILY 10/07/21 PreserVision AREDS-2 1 tab PO BID 10/07/21 calcium carbonate [Calcium 600] 600 mg PO DAILY 10/07/21 cholecalciferol (vitamin D3) 25 mcg PO DAILY 10/07/21 metformin 500 mg PO TID 10/07/21 multivitamin 1 tab PO DAILY 10/07/21 acetaminophen [Tylenol] 650 mg PO Q6H PRN PRN #0 tab 10/12/21 aspirin 81 mg PO BID #0 tab 10/12/21 oxycodone 5 mg PO Q4H PRN PRN #0 tab 10/12/21 Hospital Course Operations - (intramedullary nailing 10/08/21) Procedures None Summary of Care Provided Hospital Course: Patient is a 80-year-old female admitted 10/07/21 due to fall with hip pain. 1. Acute traumatic right hip fracture secondary to mechanical fall-underwent intramedullary nailing 10/08/21. PT/OT. Management per orthopedic medicine. Continue dry sterile dressing to right hip, change daily and as needed. Aspirin 81 mg twice daily at discharge. TCU for rehab. Follow-up with PCP and orthopedic medicine at discharge. 2. Acute blood loss anemia, expected outcome secondary to #1-orthopedic medicine following closely. S/P 2 units PRBC for hemoglobin 6.7. Left hip area with extensive ecchymosis. Hemoglobin now stable, 10.4. Trend CBC at TCU. 3. Type 2 diabetes mellitus-continue Metformin. 4. Hypertension-stable, continue lisinopril and atenolol. 5. Bilateral carotid artery stenosis-on aspirin, statin. 6. Hyperlipidemia-continue statin. Physical Exam Const alert, oriented x3 and no apparent distress Orientation / Consciousness: awake, oriented to person, oriented to place and oriented to time HEENT normocephalic and moist oral mucous membranes Eyes PERRL, EOMs intact bilaterally and conjunctivae normal Neck no lymphadenopathy Resp normal respiratory effort and clear to auscultation bilaterally Cardio regular rate, regular rhythm and no murmurs Peripheral Pulses: pulses 2+ throughout GI normal to inspection, nondistended, normoactive bowel sounds, non-tender and non-distended Extremity normal to inspection Skin no rashes or lesions noted Skin Narrative: Right hip postop dressing with sanguinous drainage, extensive ecchymosis right hip extending down right leg and abdomen. Lesions: no lesions Rashes: no rashes Trauma: no lacerations or abrasions Neuro CN's II-XII intact bilaterally, no focal motor deficits, no sensory deficits noted and deep tendon reflexes 2+ bilaterally Psych mental status grossly normal and affect normal Patient seen and examined prior to discharge. Physical assessment as noted above. Patient is stable for discharge with follow up recommendations as noted above. This patient was seen by EFRAIN Rosario under the supervision of Dr. Cueto. Time spent examining patient, reviewing data and subsequent management of care: 18 Minutes Weight / BMI Weight Weight: 113 lb 6.4 oz Body Mass Index (BMI) 23.7 ABG / Lab / Microbiology Data Result Diagrams: 10/12/21 06:05 10/12/21 06:05 Laboratory: Laboratory Results - last 24 hr 10/11/21 06:00: Crossmatch See Detail 10/11/21 11:50: POC Glucose 213 H 10/11/21 16:34: POC Glucose 129 H 10/11/21 19:45: Hgb 10.8 L, Hct 31.1 L 10/11/21 20:58: POC Glucose 213 H 10/12/21 06:05: Sodium 132 L, Potassium 4.4, Chloride 101, Carbon Dioxide 26.0, Anion Gap 5, BUN 10, Creatinine 0.42 L, Estim Creat Clear Calc 37.65, Est GFR (MDRD) Af Amer 187, Est GFR (MDRD) Non-Af 154, BUN/Creatinine Ratio 23.8 H, Glucose 170 H, Calcium 7.7 L, Total Bilirubin 1.40 H, AST 44 H, ALT 22, Alkaline Phosphatase 107, Total Protein 4.9 L, Albumin 2.1 L, Globulin 2.8, Albumin/Globulin Ratio 0.8 L 10/12/21 06:05: WBC 8.6, RBC 3.53 L, Hgb 10.4 L, Hct 29.9 L, MCV 84.7, MCH 29.5, MCHC 34.8, RDW Std Deviation 43.7, RDW Coeff of Evelio 14.2, Plt Count 167, MPV 10.4, Immature Gran % (Auto) 1.500 H, Neut % (Auto) 75.3 H, Lymph % (Auto) 11.9 L, [place] % (Auto) 9.8, Eos % (Auto) 1.4, Baso % (Auto) 0.1, Absolute Neuts (auto) 6.5, Absolute Lymphs (auto) 1.02, Nucleated RBC % 0.7 10/12/21 06:24: POC Glucose 184 H 10/12/21 11:47: POC Glucose 222 H Meaningful Use Info Meaningful Use Diagnoses (Choose all that apply): None applicable Discharge Plan Admission Admit Date/Time: 10/07/21 16:43 Primary Reason for Your Visit: Hip fracture Attending Provider: Stanley Cueto Primary Care Provider: Karmen Resendez Consulting Providers: Dillon Oswald Discharge Orders/Prescriptions Prescriptions: New acetaminophen [Tylenol] 325 mg Tablet 650 mg PO Q6H PRN PRN (Reason: Pain Score 1-10/Temp > 100.7 F) Qty: 0 RF: 0 oxycodone 5 mg Tablet 5 mg PO Q4H PRN PRN (Reason: Pain Score 4-5) Qty: 0 RF: 0 aspirin 81 mg Tablet,Delayed Release (Dr/Ec) 81 mg PO BID Qty: 0 RF: 0 Continued Vitamin B-12 50 mcg tablet 50 mcg PO DAILY@1200 RF: 0 simvastatin 10 MG tablet 10 mg PO QHS RF: 0 atenolol 25 MG tablet 25 mg PO BID RF: 0 levothyroxine 50 MCG tablet 50 mcg PO DAILY RF: 0 lisinopril 2.5 MG tablet 2.5 mg PO DAILY@1200 RF: 0 multivitamin Tablet 1 tab PO DAILY RF: 0 calcium carbonate [Calcium 600] 600 mg calcium (1,500 mg) Tablet 600 mg PO DAILY RF: 0 metformin 500 mg tablet extended release 24 hr 500 mg PO TID RF: 0 cholecalciferol (vitamin D3) 25 mcg (1,000 unit) Capsule 25 mcg PO DAILY RF: 0 PreserVision AREDS-2 250-90-40-1 mg Capsule 1 tab PO BID RF: 0 Instaflex 1 cap PO/SL DAILY RF: 0 Referrals / Follow Up: Karmen Resendez DO [Primary Care Provider] - In 1 Week Albert Sheridan DO [STAFF PHYSICIAN] - Within 2 Weeks Disposition Disposition (needs filled in before D/C Order can be placed): Halfway Facility Documented by User: Dr. Stanley Cueto DO 10/12/21 15:33 Providers Date of Admission: 10/07/21 Reason For Visit: [facility] HIP FRACTURE Medications at Discharge Home Medications atenolol 25 mg PO BID 01/03/20 levothyroxine 50 mcg PO DAILY 01/03/20 lisinopril 2.5 mg PO DAILY@1200 01/03/20 simvastatin 10 mg PO QHS 01/03/20 cyanocobalamin (vitamin B-12) 50 mcg tablet 50 mcg PO DAILY@1200 01/10/20 Instaflex 1 cap PO/SL DAILY 10/07/21 PreserVision AREDS-2 1 tab PO BID 10/07/21 calcium carbonate [Calcium 600] 600 mg PO DAILY 10/07/21 cholecalciferol (vitamin D3) 25 mcg PO DAILY 10/07/21 metformin 500 mg PO TID 10/07/21 multivitamin 1 tab PO DAILY 10/07/21 acetaminophen [Tylenol] 650 mg PO Q6H PRN PRN #0 tab 10/12/21 aspirin 81 mg PO BID #0 tab 10/12/21 oxycodone 5 mg PO Q4H PRN PRN #0 tab 10/12/21 ABG / Lab / Microbiology Data Result Diagrams: 10/12/21 06:05 10/12/21 06:05 Discharge Plan Admission Admit Date/Time: 10/07/21 16:43 Primary Reason for Your Visit: Hip fracture Attending Provider: Stanley Cueto Primary Care Provider: Karmen Resendez Consulting Providers: Dillon Oswald Discharge Orders/Prescriptions Prescriptions: New acetaminophen [Tylenol] 325 mg Tablet 650 mg PO Q6H PRN PRN (Reason: Pain Score 1-10/Temp > 100.7 F) Qty: 0 RF: 0 oxycodone 5 mg Tablet 5 mg PO Q4H PRN PRN (Reason: Pain Score 4-5) Qty: 0 RF: 0 aspirin 81 mg Tablet,Delayed Release (Dr/Ec) 81 mg PO BID Qty: 0 RF: 0 Continued Vitamin B-12 50 mcg tablet 50 mcg PO DAILY@1200 RF: 0 simvastatin 10 MG tablet 10 mg PO QHS RF: 0 atenolol 25 MG tablet 25 mg PO BID RF: 0 levothyroxine 50 MCG tablet 50 mcg PO DAILY RF: 0 lisinopril 2.5 MG tablet 2.5 mg PO DAILY@1200 RF: 0 multivitamin Tablet 1 tab PO DAILY RF: 0 calcium carbonate [Calcium 600] 600 mg calcium (1,500 mg) Tablet 600 mg PO DAILY RF: 0 metformin 500 mg tablet extended release 24 hr 500 mg PO TID RF: 0 cholecalciferol (vitamin D3) 25 mcg (1,000 unit) Capsule 25 mcg PO DAILY RF: 0 PreserVision AREDS-2 250-90-40-1 mg Capsule 1 tab PO BID RF: 0 Instaflex 1 cap PO/SL DAILY RF: 0 Referrals / Follow Up: Karmen Resendez DO [Primary Care Provider] - In 1 Week Albert Sheridan DO [STAFF PHYSICIAN] - Within 2 Weeks Disposition Disposition (needs filled in before D/C Order can be placed): Halfway Facility Charges/Coding Addendum Addendum: Patient was seen and examined today independently of Asha Berger, we received authorization for the patient to go to short-term rehab services today at a custodial facility. Patient has no complaints of any shortness of breath, fever, or chills. On examination she appeared in good health and spirits, she does not appear to be in any distress. Vital signs as documented. Skin warm and dry and without overt rashes. Neck without JVD, thyroid appears normal, trachea is midline, neck is supple. Lungs clear, normal air movement was noted. Heart exam notable for regular rhythm, normal sounds and absence of murmurs, rubs or gallops. Abdomen unremarkable and without evidence of organomegaly, masses, or abdominal aortic enlargement, bowel sounds are present in all 4 quadrants, no abdominal tenderness was noted. Extremities there is generalized edema of the patient's right upper leg with evidence of old ecchymosis in the area, no cyanosis was noted, no clubbing was noted. Neuro: Cranial nerves II through XII are grossly intact, no focal motor deficits were noted, sensation to light touch and pinprick is intact, motor exam 5/5 throughout. Psych: Patient is alert and oriented x3, she does not appear anxious or depressed, she does not appear agitated. Impression #1 right intertrochanteric fracture-status post insertion of intramedullary nail right femur #2 essential hypertension #3 hyperlipidemia #4 hypothyroidism #5 acute blood loss anemia secondary to right intertrochanteric fracture with expected blood loss requiring blood transfusion I have reviewed Asha Berger's discharge summary including her medical assessment and plan of care and with the above additions endorse it. Total clinical time spent by myself addressing the patient's medical issues, reviewing the patient's data, and collaborating with the patient's care team: 25 minutes Visit Charges Inpatient E&M: [id number] Disch Hosp
--- NOTE | 2021-10-12 13:25 | CASEMGMT ---
Social Work Note SW received call from Dulce with TCU stating pre-cert was obtained, pt can discharge to TCU today. YOLA updated PA. Plan: TCU today Rosnana Meyer MANAGING MEMBER, PATTERNMAKER HAND
--- NOTE | 2021-10-12 14:30 | CASEMGMT ---
Social Work Note SW in to speak with pt. SW updated pt that pre-cert was obtained for TCU, pt will discharge to TCU today. Pt states understanding. SW asked pt about how her is doing. Pt states that she spoke with her this morning. SW asked pt if her Daughter is still helping out with her while she has been at [facility]. Pt states that her daughter Yuli will call and check in with pt and will sometimes have the pt come to her house for a couple hours. SW asked pt if there was any 24/7 care at home and pt states there is not. SW provided pt with Corner Cutter Machine Operator and Direction Home resources. SW also informed pt that this worker will call her daughter Yuli to update on pt going to TCU. Pt states understanding. YOLA placed a call to Pt's daughter Yuli and updated her that pt will discharge to TCU today. YOLA asked Yuli about pt's Daniel. Yuli confirms that she will call Daniel to check in with him and that she will sometimes have him over to her house. YOLA asked Yuli if Daniel is able to take care of himself (go to the bathroom, make meals, etc). Yuli states that Daniel is able to take himself to the bathroom, states she is not sure if Daniel knows how to make meals for himself. YOLA asked Yuli if he could make PB&J Sandwiches or microwavable meals and Yuli again states she is not sure. Yuli states pt has not had to make his own food for himself before. YOLA placed a call to [facility] APS and provided APS report due to concerns of pt's Daniel being by himself and pt's daughter not knowing if he can make his own food or not. Plan: TCU today APS report made. Rosanna Meyer STRIPPING SHOVEL OPERATOR, NEAR EAST ARCHEOLOGY PROFESSOR
--- NOTE | 2021-10-12 14:58 | NURSING ---
Report called to CIERRA Cleaning RN
--- NOTE | 2021-10-12 17:15 | CASEMGMT ---
Social Work Note YOLA received call from [facility]PS stating they are reviewing APS report, states that if this worker had serious concerns about pt's then this worker could call for a wellness/welfare check. YOLA placed a call to pt's daughter Yuli and asked if she had spoken to Daniel recently. Yuli states she just got off the phone with him. Yuli states that she thinks Daniel is taking his medications and eating food. Yuli states her mother, the pt, is trying to get a hold of Daniel's PCP to arrange [facility]. Yuli states she is hoping to go see pt tomorrow. Yuli states she does have some concerns with Daniel being home by himself as the pt was the primary caregiver for him. YOLA placed a call to pt's Daniel. Daniel answered the phone. Daniel says that he is doing ok, states that he is just bored and lonely at home. Daniel states that his family took away his car keys so he is not able to drive anywhere. Daniel states that he is taking his medications and that he is eating. YOLA asked Daniel what he had to eat today. Daniel states that he some Cheerios, [place] Juice, and Milk. YOLA asked Daniel what he was having for dinner tonight and Daniel states he is not sure, states there are some cookies in the house. YOLA asked Daniel if Yuli had brought over any food for him and Daniel states she brought the cookies over the other day. Ted states he doesn't use the appliances and only uses the microwave. Daniel confirms as well that pt was the primary caregiver and made all of the food. Daniel denied additional needs or concerns at this time. Handoff provided to CIERRA Carpenter. Rosanna Meyer INSTALL AND REPAIR TECHNICIAN, CLAIM ANALYST
== END 2021-10-12 15:20 | DRG 481 ==
LOC: ED 16:52 → MS3 17:02
PROVIDERS: Anesthesiology; Family Medicine; Nurse Practitioner Family; Student in an Organized Health Care Education/Training Program; Admitting Provider Internal Medicine; Emergency Provider Emergency Medicine; PCP Internal Medicine; Visit Provider Internal Medicine
PROC: 0QS606Z Reposition Right Upper Femur with Intramedullary Internal Fixation Device, Open Approach (ICD-10-PCS; CPT 27245; principal; 2021-10-08 09:45)
DX: S72.141A Displaced intertrochanteric fracture of right femur, initial encounter for closed fracture (principal); D62 Acute posthemorrhagic anemia; E11.9 Type 2 diabetes mellitus without complications; E03.9 Hypothyroidism, unspecified; I65.23 Occlusion and stenosis of bilateral carotid arteries; I10 Essential (primary) hypertension; E78.5 Hyperlipidemia, unspecified; W01.0XXA Fall on same level from slipping, tripping and stumbling without subsequent striking against object, initial encounter; M17.11 Unilateral primary osteoarthritis, right knee; R23.3 Spontaneous ecchymoses; Z79.82 Long term (current) use of aspirin; Z79.84 Long term (current) use of oral hypoglycemic drugs; Z79.899 Other long term (current) drug therapy
CPT/HCPCS: 36415; 71045; 73501; 73502; 76000; 80048; 80053; 82962; 83036; 83735; 84100; 84443; 85014; 85018; 85025; 85610; 86850; 86900; 86901; 86920; 86922; 87426; 90715; 93005; 97110; 97162; 97166; 97530; 97535; 99251; 99285; C1713; C1776; J7030; J7040; J7120; P9016; A4216; G0463; J2405

== ENCOUNTER 2021-10-12 15:41 | Inpatient (IN) | payer MEDICARE, SELFPAY ==
[2021-10-12 15:47] VITALS: BP 131/61; PULSE 80; RESP 16; TEMP 36.5; O2SAT 95; BMI 26.4
[2021-10-12 16:00] VITALS: BP 131/61; PULSE 80; RESP 16; TEMP 36.5; O2SAT 95
[2021-10-12] MEDS: 0.9% Saline Lock 10 ML Syringe IV (16:28)
[2021-10-12] MEDS: metFORMIN (XR) 500 MG Tablet PO (17:37)
[2021-10-12] MEDS: Atenolol 25 MG Tablet PO (17:37)
[2021-10-12] MEDS: Aspirin E.C. 81 MG Tablet PO (17:38)
[2021-10-12] MEDS: Multivitamin (Healthy Eyes) Capsule 1 CAP PO (17:38)
--- NOTE | 2021-10-12 19:33 | HP.PCM_ITS ---
HPI - General General Date of Admission: 10/12/21 HPI Narrative 10/07/2021 BAKARI BETTENCOURT, is a 80 Female who presents to [facility] Emergency Department with lower extremity injury. Right hip pain after fall, fell on right side. Right leg numb, pain with any movement. X-ray showed right hip fracture. 10/07/2021 Admit to Hospital. Prepare for surgery. 10/08/2021 Dr. Sheridan performed right femur intramedullary nail. 10/08/2021 Pain controlled. Willing to go to SNF. PT/OT for SNF. Lovenox for DVT prophylaxis. 10/09/2021 Pain 12/11. No transfusion needed. 10/10/2021 Pain controlled, working with therapy. 10/11/2021 Bleeding, bruising from incision site, right groin. Hold Lovenox. Orthopedics notified. Transfuse 2 units PRBC, post transfusion hemoglobin 10.7. 10/12/2021 DVT prophylaxis hld for acute postoperative anemia. 10/12/2021 Admit to TCU with debility, here for rehabilitation, strengthening, prior to discharge home with . [facility] Medical History Carotid artery stenosis Diabetes Hyperlipidemia Hypertension Hypothyroidism Osteoarthritis Osteoporosis Wears hearing aid in both ears Home Medications atenolol 25 mg PO BID 01/03/20 [History Last Taken 10/07/21] levothyroxine 50 mcg PO DAILY 01/03/20 [History Last Taken 10/06/21] lisinopril 2.5 mg PO DAILY@1200 01/03/20 [History Last Taken 10/07/21] simvastatin 10 mg PO QHS 01/03/20 [History Last Taken 10/06/21] cyanocobalamin (vitamin B-12) 50 mcg tablet 50 mcg PO DAILY@1200 01/10/20 [History Last Taken 10/07/21] Instaflex 1 cap PO/SL DAILY 10/07/21 [History Last Taken 10/07/21] PreserVision AREDS-2 1 tab PO BID 10/07/21 [History Last Taken 10/07/21 .] calcium carbonate [Calcium 600] 600 mg PO DAILY 10/07/21 [History Last Taken 10/07/21] cholecalciferol (vitamin D3) 25 mcg PO DAILY 10/07/21 [History Last Taken 10/07/21] metformin 500 mg PO TID 10/07/21 [History Last Taken 10/07/21] multivitamin 1 tab PO DAILY 10/07/21 [History Last Taken 10/07/21] acetaminophen [Tylenol] 650 mg PO Q6H PRN PRN #0 tab 10/12/21 [Rx Last Taken Unknown] aspirin 81 mg PO BID 10/12/21 [History Last Taken Unknown] oxycodone 5 mg PO Q4H PRN PRN #0 tab 10/12/21 [Rx Last Taken Unknown] Allergy/AdvReac Type Severity Reaction Status Date / Time No Known Allergies Allergy Verified 10/07/21 15:15 Family History Father Cancer Mother Heart disease Surgical History H/O: hysterectomy History of appendectomy Social History household members: spouse housing: house Smoking Status: Never smoker alcohol intake: never substance use type: does not use what type of physical activity do you participate in: other ROS Constitutional Constitutional: Denies chills, fever(s) or weight gain ENT HEENT: Denies headache(s), nasal congestion or nasal discharge Cardiovascular Cardiovascular: Denies chest pain or palpitations Respiratory/Chest Respiratory/Chest: Denies cough, excessive phlegm production or shortness of breath with exertion Gastrointestinal Gastrointestinal: Reports constipation; Denies abdominal pain, nausea or vomiting Genitourinary Genitourinary: Denies dysuria Musculoskeletal Musculoskeletal: Denies joint pain or joint swelling Integumentary Integumentary: Denies rash or wounds Neurologic Neurologic: Denies focal weakness, numbness or tingling Psychiatric Psychiatric: Denies anxiety, auditory hallucinations, depression, homicidal ideation or suicidal ideation Vital Signs Vital Signs Vital Signs: 10/12/21 15:47 10/12/21 16:00 Temperature 97.7 F L 97.7 F L Temperature Source Temporal Temporal Pulse Rate 80 80 Pulse Rhythm Regular Respiratory Rate 16 16 Respiratory Effort Normal Non-Labored Respiratory Depth Normal Respiratory Pattern Normal Blood Pressure 131/61 H 131/61 H Blood Pressure Mean 84 84 Blood Pressure Source Monitor Monitor Blood Pressure Position Sitting Sitting Blood Pressure Location Right Arm Right Arm Pulse Ox 95 95 Oxygen Delivery Method Room Air Room Air Weight Weight: 57.379 kg Body Mass Index (BMI) 26.4 Physical Exam Const alert General Appearance: cooperative HEENT normocephalic Eyes PERRL and EOMs intact bilaterally Neck supple, no JVD and no carotid bruits Resp normal respiratory effort, normal air movement and clear to auscultation bilaterally Cardio regular rate and regular rhythm GI normal to inspection, nondistended, normoactive bowel sounds, non-tender and non-distended Extremity normal capillary refill General Extremity: Negative for edema Skin no rashes or lesions noted General Skin Exam: no breakdown Psych affect normal Appearance: appropriate Assessment & Plan Assessment/Plan (1) Debility: (2) Closed fracture of right hip: (3) Postoperative anemia: (4) Diabetes mellitus: (5) Hypertension: (6) Hyperlipidemia: (7) Hypothyroidism: (8) Osteoarthritis: PLAN: 80 year old female with below past medical history hospitalized for right hip fracture, underwent right femur intramedullary nail fixation 10/08/[address] Sheridan, complicated by postoperative anemia requiring transfusion, admitted to TCU with debility, here for rehabilitation, strengthening, prior to discharge home with . * Debility - PT/OT. * Pain - Tylenol 1000mg q6 prn pain (1-3), Oxycodone 5mg q4h prn pain (4-10). * Bowel - Miralax 17gm daily, senna/colace 2 tablets bid, Dulcolax 10mg pr daily prn, Soap suds enema x 1. * Adult immunization - Administer pneumonia vaccine, flu vaccine, covid19 vaccine as appropriate. * DVT prophylaxis - aspirin 81mg twice daily thru 11/07/2021 per Ortho. * Hypertension - Atenolol 25mg bid, Lisinopril 2.5mg daily. * Hyperlipidemia - Atorvastatin 5mg qhs. * Calcium deficiency - Calcium 500mg daily. * Vitamin D deficiency - D3 25mcg daily. * Vitamin B12 deficiency - B12 500mcg daily. * Nutrition - Glucerna 120ml po tidcm, MVI daily. * Hypothyroidism - Levothyroxine 50mcg daily. * Diabetes Mellitus II - Metformin 500mg tidcm. * Macular degeneration - Healthy Eyes 1 tablet bid.
[2021-10-12] MEDS: Senna/Docusate Sodium 1 Tablet 2 TABLET PO (20:36)
[2021-10-12] MEDS: Atorvastatin Calcium 10 MG Tablet 5 MG PO (20:36)
[2021-10-13 05:48] LABS: Absolute Lymphocyte Count 0.87 X10^3/uL (0.83-4.51); Absolute Neutrophil Count 5.5 X10^3/uL (2.0-7.7); Basophil# 0.03 X10^3/uL; Basophil% 0.4 % (0-1); Eosinophil# 0.14 X10^3/uL; Eosinophils% 1.8 % (0-5); Hematocrit 31.3 % (37-47); Hemoglobin 10.7 g/dL (12.0-15.0); Lymphocyte # 0.87 X10^3/ul (0.83-4.51); Lymphocyte % 11.4 % (19-41); Mean Corp Hgb Conc 34.2 g/dL (32-36); Mean Corpuscular Hgb 29.6 pg (27.0-32.0); Mean Corpuscular Volume 86.5 fL (81-99); Mean Platelet Vol. 10.1 fl (6.2-12.0); Monocyte# 0.85 X10^3/uL; Monocyte% 11.1 % (0-10); NRBC Flagged by Analyzer 0.7 % (0-5); Neutrophil # 5.51 X10^3/uL (2.7-7.7); Neutrophil % 72.3 % (47-70); Platelet Count 174 K/mm3 (150-450); RBC Distribution Width CV 14.2 % (11.6-14.6); RBC Distribution Width SD 44.8 fl (35.1-43.9); Red Blood Count 3.62 M/mm3 (4.2-5.4); White Blood Count 7.6 K/mm3 (4.4-11.0)
[2021-10-13 06:19] LABS: Anion Gap 4 (5-15); BUN 12 mg/dL (7-18); Calcium,Total 7.9 mg/dL (8.5-10.1); Chloride 101 mmol/L (98-107); Creatinine, Serum 0.44 mg/dL (0.55-1.02); EST Glomerular Filtration Rate 145 mL/min (>60); Est Glom Filt Rate - Afr Amer 175 mL/min (>60); Glucose 163 mg/dL (74-106); Potassium 3.9 mmol/L (3.5-5.1); Sodium Level 131 mmol/L (136-145)
[2021-10-13 06:20] LABS: Bedside Glucose 137 mg/dL (74-106)
[2021-10-13] MEDS: Cholecalciferol (VIT D3) 25 MCG TABLET (1,000 UNITS) PO (06:29)
[2021-10-13] MEDS: Atenolol 25 MG Tablet PO ×2 (06:29→17:46)
[2021-10-13] MEDS: Levothyroxine 50 MCG Tablet PO (06:29)
[2021-10-13] MEDS: Senna/Docusate Sodium 1 Tablet 2 TABLET PO (06:29)
[2021-10-13] MEDS: Polyethylene Glycol 3350 17 GM PACKET PO (06:29)
[2021-10-13] MEDS: Aspirin E.C. 81 MG Tablet PO ×2 (09:05→17:45)
[2021-10-13] MEDS: Multivitamin (Healthy Eyes) Capsule 1 CAP PO ×2 (09:05→17:45)
[2021-10-13] MEDS: Calcium (Elemental) 500 MG Tablet PO (09:05)
[2021-10-13] MEDS: Multivitamins,Therapeutic Tablet 1 TABLET PO (09:05)
[2021-10-13] MEDS: Glucerna Shake 120 ML LIQUID PO ×2 (09:09→17:44)
[2021-10-13] MEDS: metFORMIN (XR) 500 MG Tablet PO ×3 (09:38→17:45)
[2021-10-13] MEDS: Tuberculin,Purif.prot.deriv. 50 TU/ML Vial 0.1 ML ID (09:39)
[2021-10-13 09:45] VITALS: PULSE 86; RESP 18; O2SAT 96
--- NOTE | 2021-10-13 10:37 | NURSING ---
SALINE LOCK REMOVED FROM RIGHT WRIST. OK PER RN. PT TOLERATED WELL.
[2021-10-13] MEDS: Cyanocobalamin 500 MCG Tablet PO (11:53)
[2021-10-13] MEDS: Lisinopril 2.5 MG Tablet PO (11:54)
[2021-10-13 12:00] VITALS: BP 127/65; PULSE 86
--- NOTE | 2021-10-13 13:44 | PHA.CONS1_ITS ---
Progress Note - Pharmacy Subjective: TCU Admission Objective: Allergies No Known Allergies Allergy (Verified 10/07/21 15:15) Current Medications Generic Name Dose Route Start Last Admin Trade Name Treyq PRN Reason Stop Dose Admin Acetaminophen 1,000 mg 10/12/21 19:49 Acetaminophen 500 Mg Tablet PO Q6H PRN PRN Pain Score 1-3 Aspirin 81 mg 10/13/21 08:00 10/13/21 09:05 Aspirin E.C. 81 Mg Tablet PO 11/07/21 17:01 81 mg BIDCM LOIDA Administration Atenolol 25 mg 10/12/21 18:00 10/13/21 06:29 Atenolol 25 Mg Tablet PO 25 mg BID LOIDA Administration Atorvastatin Calcium 5 mg 10/12/21 22:00 10/12/21 20:36 Atorvastatin Calcium 10 Mg Tablet PO 5 mg QHS LOIDA Administration Bisacodyl 10 mg 10/12/21 16:03 Bisacodyl 10 Mg Suppository RC DAILY PRN Constipation Calcium Carbonate 500 mg 10/13/21 08:00 10/13/21 09:05 Calcium (Elemental) 500 Mg Tablet PO 500 mg BREAKFAST [facility] Administration Cholecalciferol 25 mcg 10/13/21 06:00 10/13/21 06:29 Cholecalciferol (Vit D3) 25 Mcg Tablet (1,000 Units) PO 25 mcg DAILY LOIDA Administration Cyanocobalamin 500 mcg 10/13/21 12:00 10/13/21 11:53 Cyanocobalamin 500 Mcg Tablet PO 500 mcg LUNCH LOIDA Administration Levothyroxine Sodium 50 mcg 10/13/21 06:00 10/13/21 06:29 Levothyroxine 50 Mcg Tablet PO 50 mcg DAILY LOIDA Administration Lisinopril 2.5 mg 10/13/21 12:00 10/13/21 11:54 Lisinopril 2.5 Mg Tablet PO 2.5 mg DAILY@1200 [facility] Administration Metformin HCl 500 mg 10/12/21 17:45 10/13/21 11:57 Metformin (Xr) 500 Mg Tablet PO 500 mg TIDCM [facility] Administration Multivitamins 1 tablet 10/13/21 08:00 10/13/21 09:05 Multivitamins,Therapeutic Tablet PO 1 tablet BREAKFAST [facility] Administration Multivitamins/Minerals 1 capsule 10/12/21 17:00 10/13/21 09:05 Multivitamin (Healthy Eyes) Capsule PO 1 capsule BIDCM LOIDA Administration Nutritional Formula (Lactose Free) 120 ml 10/12/21 17:45 10/13/21 11:56 Glucerna Shake 120 Ml Liquid PO Not Given TIDCM LOIDA Oxycodone HCl 5 mg 10/12/21 15:55 Oxycodone 5 Mg Tablet PO Q4H PRN PRN Pain Score 4-10 Pneumococcal 13-Valent Conj Vacc 0.5 ml 10/14/21 10:00 Pneumoc 13-Fabi Conj-Dip Crm/Pf 0.5 Ml Syringe IM 10/14/21 10:01 .ONCE ONE Polyethylene Glycol 17 gm 10/13/21 06:00 10/13/21 06:29 Polyethylene Glycol 3350 17 Gm Packet PO 17 gm DAILY LOIDA Administration Senna/Docusate Sodium 2 tablet 10/12/21 20:00 10/13/21 06:29 Senna/Docusate Sodium 1 Tablet PO 2 tablet BID LOIDA Administration Sodium Chloride 10 - 40 ml 10/12/21 15:48 10/12/21 16:28 0.9% Saline Lock 10 Ml Syringe IV 10 ml UD PRN Administration SALINE FLUSH Tuberculin PPD 0.1 ml 10/20/21 10:00 Tuberculin,Purif.Prot.Deriv. 50 Tu/Ml Vial ID 10/20/21 10:01 X1 ONE Problem List (Last Reviewed 10/12/21 @ 19:[address] Song Vincent MD) Osteoarthritis (Acute) Hypothyroidism (Acute) Hyperlipidemia (Acute) Hypertension (Chronic) Diabetes mellitus (Acute) Postoperative anemia (Acute) Debility (Acute) Closed fracture of right hip (Acute) Vital Signs Temp Pulse Resp BP Pulse Ox 97.7 F L 86 16 127/65 H 95 10/12/21 16:00 10/13/21 12:00 10/12/21 16:00 10/13/21 12:00 10/12/21 16:00 Oxygen Delivery Method Room Air Weight: 57.153 kg Body Mass Index (BMI) 26.4 Sodium 131 mmol/L (136-145) L 10/13/21 05:09 Potassium 3.9 mmol/L (3.5-5.1) 10/13/21 05:09 Chloride 101 mmol/L (98-107) 10/13/21 05:09 Carbon Dioxide 26.0 mmol/L (21.0-32.0) 10/13/21 05:09 Anion Gap 4 (5-15) L 10/13/21 05:09 BUN 12 mg/dL (7-18) 10/13/21 05:09 Creatinine 0.44 mg/dL (0.55-1.02) L 10/13/21 05:09 Est GFR (MDRD) Af Amer 175 mL/min (>60) 10/13/21 05:09 Est GFR (MDRD) Non-Af 145 mL/min (>60) 10/13/21 05:09 BUN/Creatinine Ratio 27.0 RATIO (10-20) H 10/13/21 05:09 Glucose 163 mg/dL (74-106) H 10/13/21 05:09 Assessment/Plan: 1. Pain: acetaminophen 1000mg PO Q6H PRN pain 1-3 and oxycodone 5mg PO Q4H PRN pain 4-10. Please continue to monitor for increased pain and PRN usage. 2. DVT prophylaxis: aspirin 81mg PO BIDCM thru 11/07/21. Please continue to monitor for S/S of bleeding and hemoglobin (last 10.7g/dL). 3. Hypertension: atenolol 25mg PO BID and lisinopril 2.5mg PO daily. Please continue to monitor BP (last 127/65), HR (last 86), potassium (last 3.9mmol/L), cough and renal function. 4. Hyperlipidemia: atorvastatin 5mg PO QHS. Please continue to monitor lipid panel and for muscle pain. 5. Hypothyroidism: levothyroxine 50mcg PO daily. Please continue to monitor TSH and for S/S of hypo/hyperthyroidism. 6. Diabetes Mellitus II: metformin XR 500mg PO TIDCM. Please continue to monitor hemoglobin A1c (last 7.2% 10/08/21), glucose (last 137mg/dL), renal function and diarrhea. 7. Nutrition/macular degeneration: multivitamin 1T PO DAILYCM and healthy eyes 1C PO BIDCM. Please continue to monitor. 8. Calcium/vitamin D/vitamin B12 deficiency: calcium carbonate 500mg PO breakfast, cholecalciferol 25mcg PO daily and cyanocobalamin 500mcg PO LUNCH. Please continue to monitor calcium (last 7.9mg/dL), vitamin B12 and vitamin D levels. Psychotropic Medications: None Unnecessary Medications: None Bowel Regimen: Miralax 17gm PO daily, senna/docusate 2T PO BID and bisacodyl 10mg RC daily PRN constipation. Please continue to monitor for constipation and PRN usage. Date of Note:: 10/13/21
[2021-10-13 13:57] VITALS: BP 138/70; PULSE 80; RESP 16; TEMP 36.4; O2SAT 98
--- NOTE | 2021-10-13 16:11 | CASEMGMT ---
Social Work Met with patient to complete initial assessment. Introduced self and role. Discussed code status and MOLST form. Pt confirms full code. MOLST communicated to , placed in chart. Explained [facility] insurance with NRD 10/15 and continued stay is not guaranteed with each review. Pt wishes to have dtr as primary contact and son as secondary contact. Updated facesheet to reflect. Received hand-off from [facility] on identified concerns. Spoke with pt about information. Pt is primary caregiver for , whom has Alzheimer's. Pt is concerned about pt being home alone while she is admitted. Pt reports her dtr was supposed to be taking care of him, but as you found out (from SW hand-off) she is not. She works full-time and is only calling him every once in awhile. She told me she was going to the house before work and after work. Validated concerns for 's well-being and safety, as it was identified dtr was unsure if pt was capable of making his own meals. and pt confirmed there are frozen meals and he can use the microwave. However, pt states he has not been taking his medications properly, and he has a significant medical hx, because pt is not there to supervise. Pt would like resources to assist with at home. [facility] provided nonskilled HHC list. This worker additionally provided and explained resources for home-delivered meals, medical alert, [employer] adult day services, and automated medication dispenser. Suggested, not only would these be helpful currently, but also to maintain when she returns home. Pt agrees but concerned about finances - she inquired about NANDA for to get assistance. Provided NANDA application for pt to complete for , and offered to assist as able, but is not this worker's pt. Pt expressed understanding and appreciative of assistance. Contacted dtr to follow up on concerns. Dtr states she is currently at home with father, but is still working and cannot stay with him. Explained resources provided to pt. Offered to email to dtr but she states she is visiting soon and will retrieve from pt. Offered assistance as able. SW to continue to follow. Smiley Law, BASSEM HICKMANW
[2021-10-13] MEDS: Atorvastatin Calcium 10 MG Tablet 5 MG PO (20:43)
[2021-10-14] MEDS: Atenolol 25 MG Tablet PO ×2 (05:40→16:42)
[2021-10-14] MEDS: Levothyroxine 50 MCG Tablet PO (05:40)
[2021-10-14] MEDS: Cholecalciferol (VIT D3) 25 MCG TABLET (1,000 UNITS) PO (05:40)
[2021-10-14 06:36] LABS: Bedside Glucose 172 mg/dL (74-106)
[2021-10-14] MEDS: Glucerna Shake 120 ML LIQUID PO ×2 (07:50→13:25)
[2021-10-14] MEDS: metFORMIN (XR) 500 MG Tablet PO ×3 (07:50→16:44)
[2021-10-14] MEDS: Multivitamin (Healthy Eyes) Capsule 1 CAP PO ×2 (07:51→16:35)
[2021-10-14] MEDS: Multivitamins,Therapeutic Tablet 1 TABLET PO (07:52)
[2021-10-14] MEDS: Calcium (Elemental) 500 MG Tablet PO (07:52)
[2021-10-14] MEDS: Aspirin E.C. 81 MG Tablet PO ×2 (07:52→16:35)
[2021-10-14] MEDS: Acetaminophen 500 MG Tablet 1000 MG PO (10:56)
[2021-10-14] MEDS: Lisinopril 2.5 MG Tablet PO (11:11)
[2021-10-14] MEDS: Cyanocobalamin 500 MCG Tablet PO (11:11)
[2021-10-14 16:00] VITALS: BP 137/61; PULSE 70; RESP 24; TEMP 36.6; O2SAT 96
[2021-10-14] MEDS: Atorvastatin Calcium 10 MG Tablet 5 MG PO (20:49)
[2021-10-14 22:04] VITALS: RESP 18
[2021-10-15] MEDS: Cholecalciferol (VIT D3) 25 MCG TABLET (1,000 UNITS) PO (05:12)
[2021-10-15] MEDS: Atenolol 25 MG Tablet PO ×2 (05:13→17:45)
[2021-10-15] MEDS: Levothyroxine 50 MCG Tablet PO (05:14)
[2021-10-15 05:19] VITALS: BP 149/72; PULSE 76; RESP 15; TEMP 36.7; O2SAT 95
[2021-10-15 06:37] LABS: Bedside Glucose 185 mg/dL (74-106)
[2021-10-15] MEDS: Aspirin E.C. 81 MG Tablet PO ×2 (07:44→17:44)
[2021-10-15] MEDS: metFORMIN (XR) 500 MG Tablet PO ×3 (07:44→17:44)
[2021-10-15] MEDS: Multivitamin (Healthy Eyes) Capsule 1 CAP PO ×2 (07:45→17:44)
[2021-10-15] MEDS: Calcium (Elemental) 500 MG Tablet PO (07:45)
[2021-10-15] MEDS: Multivitamins,Therapeutic Tablet 1 TABLET PO (07:45)
[2021-10-15] MEDS: Lisinopril 2.5 MG Tablet PO (11:40)
[2021-10-15] MEDS: Cyanocobalamin 500 MCG Tablet PO (11:40)
[2021-10-15] MEDS: Glucerna Shake 120 ML LIQUID PO (11:42)
[2021-10-15 11:47] VITALS: BP 133/44; PULSE 73
[2021-10-15 13:30] VITALS: BP 132/61; PULSE 72; RESP 18; TEMP 36.7; O2SAT 98
--- NOTE | 2021-10-15 14:59 | CHAPLAIN ---
Type of Pastoral Visit _x__ Initial Visit ___ Follow-up Visit ___ On-call Visit ___ General Patient Visit ___ Spiritual Assessment ___ Family Conference ___ Bereavement ___ Rapid Response ___ Code Blue ___ Other (describe below) Pastoral Care Referral From _x__ Patient ___ Family ___ Nurse ___ Physician ___ Airset Caster ___ Program Architect ___ Other (describe below) Sacrament/Intervention _x__ Active listening ___ Anointing ___ Anabaptism ___ Bereavement ___ Communion _x__ Loree exploration ___ _x__ Life review _x__ Prayer ___ Reconciliation ___ Sacrament of Sick _x__ Supportive presence ___ Wedding ___ Other (describe below) Pastoral Comments patient has been a life long Mu-Ism and appreciates the spiritual care support at this time; pt gives life review and also shares concern about her who has early dementia and needs more care than he is willing to receive from others; prayer and presence given
[2021-10-15] MEDS: Atorvastatin Calcium 10 MG Tablet 5 MG PO (20:16)
[2021-10-15 23:42] VITALS: RESP 18
[2021-10-16] MEDS: Levothyroxine 50 MCG Tablet PO (05:28)
[2021-10-16] MEDS: Atenolol 25 MG Tablet PO ×2 (05:28→17:13)
[2021-10-16] MEDS: Cholecalciferol (VIT D3) 25 MCG TABLET (1,000 UNITS) PO (05:28)
[2021-10-16 06:36] LABS: Bedside Glucose 142 mg/dL (74-106)
--- NOTE | 2021-10-16 07:53 | NURSING ---
Dressing change to rt hip completed. Large amount of serosanguineous drainage noted. Two ABDs placed over incisions three incisions. Incisions well approximated, marybeth intact. Periwound skin ecchymotic and edematous. No sxs infection noted. Pt tolerated well.
[2021-10-16] MEDS: metFORMIN (XR) 500 MG Tablet PO ×3 (08:33→17:13)
[2021-10-16] MEDS: Glucerna Shake 120 ML LIQUID PO ×2 (08:33→17:12)
[2021-10-16] MEDS: Multivitamins,Therapeutic Tablet 1 TABLET PO (08:33)
[2021-10-16] MEDS: Aspirin E.C. 81 MG Tablet PO ×2 (08:33→17:12)
[2021-10-16] MEDS: Multivitamin (Healthy Eyes) Capsule 1 CAP PO ×2 (08:33→17:13)
[2021-10-16] MEDS: Calcium (Elemental) 500 MG Tablet PO (08:34)
[2021-10-16] MEDS: Cyanocobalamin 500 MCG Tablet PO (11:57)
[2021-10-16] MEDS: Lisinopril 2.5 MG Tablet PO (11:57)
--- NOTE | 2021-10-16 14:28 | CASEMGMT ---
Social Work Insurance issued LCD 10/18, DC 10/19. Spoke with pt and she is in agreement. IDT recommending HHC. Pt agreeable. Provided skilled HHC list with quality data and pt prefers [facility]. Referral made for PT/OT. No DME needs. Dtr to transport after work about 1800. Plan: DC home with 10/19, [facility] PT/OT BASSEM AlexandraW
--- NOTE | 2021-10-16 15:01 | DS.PCM_ITS ---
Providers Date of Admission: 10/12/21 Primary Care Physician: Dr. Karmen Resendez DO Reason For Visit: R HIP FRACTURE Diagnosis Discharge Diagnosis (1) Debility: Status: Acute Code(s): R53.81 - Other malaise (2) Closed fracture of right hip: Status: Acute Code(s): S72.001A - Fracture of unspecified part of neck of right femur, initial encounter for closed fracture (3) Postoperative anemia: Status: Acute Code(s): D64.9 - Anemia, unspecified (4) Diabetes mellitus: Status: Acute Code(s): E11.9 - Type 2 diabetes mellitus without complications (5) Hypertension: Status: Chronic Code(s): I10 - Essential (primary) hypertension (6) Hyperlipidemia: Status: Acute Code(s): E78.5 - Hyperlipidemia, unspecified (7) Hypothyroidism: Status: Acute Code(s): E03.9 - Hypothyroidism, unspecified (8) Osteoarthritis: Status: Acute Code(s): M19.90 - Unspecified osteoarthritis, unspecified site Medications at Discharge Home Medications atenolol 25 mg PO BID 01/03/20 levothyroxine 50 mcg PO DAILY 01/03/20 lisinopril 2.5 mg PO DAILY@1200 01/03/20 simvastatin 10 mg PO QHS 01/03/20 cyanocobalamin (vitamin B-12) 50 mcg tablet 50 mcg PO DAILY@1200 01/10/20 Instaflex 1 cap PO/SL DAILY 10/07/21 PreserVision AREDS-2 1 tab PO BID 10/07/21 calcium carbonate [Calcium 600] 600 mg PO DAILY 10/07/21 cholecalciferol (vitamin D3) 25 mcg PO DAILY 10/07/21 metformin 500 mg PO TID 10/07/21 multivitamin 1 tab PO DAILY 10/07/21 acetaminophen 1,000 mg PO Q6H PRN PRN #0 tab 10/16/21 aspirin 81 mg PO BID 19 Days #38 tab 10/16/21 Hospital Course Operations - (Right femur intramedullary nail fixation. ) Procedures Blood transfusion (2 units PRBC.) Summary of Care Provided Minutes Spent on Discharge: 35 Hospital Course: 80 year old female with below past medical history hospitalized for right hip fracture, underwent right femur intramedullary nail fixation 10/08/[address] Sheridan, complicated by postoperative anemia requiring transfusion, admitted to TCU with debility, here for rehabilitation, strengthening, prior to discharge home with . Discharge home with 10/19/2021, [facility] Care PT/OT. Physical Exam Const alert General Appearance: cooperative HEENT normocephalic Eyes PERRL and EOMs intact bilaterally Neck supple, no JVD and no carotid bruits Resp normal respiratory effort, normal air movement and clear to auscultation bilaterally Cardio regular rate and regular rhythm GI normal to inspection, nondistended, normoactive bowel sounds, non-tender and non-distended Extremity normal capillary refill General Extremity: Negative for edema Skin no rashes or lesions noted General Skin Exam: no breakdown Psych affect normal Appearance: appropriate Weight / BMI Weight Weight: 57.153 kg Body Mass Index (BMI) 26.4 ABG / Lab / Microbiology Data Result Diagrams: 10/13/21 05:09 10/13/21 05:09 Laboratory: Laboratory Results - last 24 hr 10/16/21 06:05: POC Glucose 142 H D/C Instructions Discharge Diet: No restrictions Discharge Activity: Return to Normal Activity, May Shower and Use Walker Weight Bearing Status: Weight bearing as tolerated Call your doctor if you observe: Fever of 101 or Higher, Inability to urinate, Inability to have a bowel movement, Shortness of breath, Dizziness, Fainting spells, Swelling in the ankles, Chest pain and Uncontrolled pain Additional Instructions: Discharge home with 10/19/2021, [facility] Care PT/OT. Please Follow Up With: Nickolas Sheridan, When: As scheduled. Meaningful Use Info Meaningful Use Diagnoses (Choose all that apply): None applicable Discharge Plan Admission Admit Date/Time: 10/12/21 15:41 Primary Reason for Your Visit: Debility. Attending Provider: Song Vincent Chi Primary Care Provider: Karmen Resendez Instructions Additional Instructions / Restrictions: Discharge home with 10/19/2021, [facility] Care PT/OT. Discharge Orders/Prescriptions Prescriptions: New acetaminophen 500 mg Tablet 1,000 mg PO Q6H PRN PRN (Reason: Pain Score 1-3) Qty: 0 RF: 0 Continued Vitamin B-12 50 mcg tablet 50 mcg PO DAILY@1200 RF: 0 simvastatin 10 MG tablet 10 mg PO QHS RF: 0 atenolol 25 MG tablet 25 mg PO BID RF: 0 levothyroxine 50 MCG tablet 50 mcg PO DAILY RF: 0 lisinopril 2.5 MG tablet 2.5 mg PO DAILY@1200 RF: 0 multivitamin Tablet 1 tab PO DAILY RF: 0 calcium carbonate [Calcium 600] 600 mg calcium (1,500 mg) Tablet 600 mg PO DAILY RF: 0 metformin 500 mg tablet extended release 24 hr 500 mg PO TID RF: 0 cholecalciferol (vitamin D3) 25 mcg (1,000 unit) Capsule 25 mcg PO DAILY RF: 0 PreserVision AREDS-2 250-90-40-1 mg Capsule 1 tab PO BID RF: 0 Instaflex 1 cap PO/SL DAILY RF: 0 aspirin 81 mg tablet,delayed release (DR/EC) 81 mg PO BID 19 Days Qty: 38 RF: 0 Discontinued acetaminophen [Tylenol] 325 mg Tablet 650 mg PO Q6H PRN PRN (Reason: Pain Score 1-10/Temp > 100.7 F) Qty: 0 RF: 0 oxycodone 5 mg Tablet 5 mg PO Q4H PRN PRN (Reason: Pain Score 4-5) Qty: 0 RF: 0 Referrals / Follow Up: Karmen Resendez DO [Primary Care Provider] - Disposition Disposition (needs filled in before D/C Order can be placed): Home Health Service
[2021-10-16 16:29] VITALS: BP 131/59; PULSE 74; RESP 15; TEMP 36.7; O2SAT 98
[2021-10-16] MEDS: Atorvastatin Calcium 10 MG Tablet 5 MG PO (21:24)
[2021-10-17] MEDS: Levothyroxine 50 MCG Tablet PO (05:47)
[2021-10-17] MEDS: Cholecalciferol (VIT D3) 25 MCG TABLET (1,000 UNITS) PO (05:48)
[2021-10-17] MEDS: Atenolol 25 MG Tablet PO ×2 (05:48→17:36)
[2021-10-17 06:31] LABS: Bedside Glucose 160 mg/dL (74-106)
[2021-10-17] MEDS: Calcium (Elemental) 500 MG Tablet PO (08:36)
[2021-10-17] MEDS: Aspirin E.C. 81 MG Tablet PO ×2 (08:37→17:35)
[2021-10-17] MEDS: Multivitamin (Healthy Eyes) Capsule 1 CAP PO ×2 (08:37→17:36)
[2021-10-17] MEDS: metFORMIN (XR) 500 MG Tablet PO ×3 (08:37→17:36)
[2021-10-17] MEDS: Multivitamins,Therapeutic Tablet 1 TABLET PO (08:37)
[2021-10-17] MEDS: Glucerna Shake 120 ML LIQUID PO ×2 (08:41→17:41)
[2021-10-17] MEDS: Acetaminophen 500 MG Tablet 1000 MG PO (08:42)
[2021-10-17] MEDS: Cyanocobalamin 500 MCG Tablet PO (12:22)
[2021-10-17] MEDS: Lisinopril 2.5 MG Tablet PO (12:22)
[2021-10-17 12:23] VITALS: BP 121/66; PULSE 83; RESP 18; TEMP 36.6; O2SAT 97
[2021-10-17 20:45] VITALS: PULSE 64; RESP 16; O2SAT 98
[2021-10-17] MEDS: Atorvastatin Calcium 10 MG Tablet 5 MG PO (21:48)
[2021-10-18] MEDS: Levothyroxine 50 MCG Tablet PO (06:05)
[2021-10-18] MEDS: Cholecalciferol (VIT D3) 25 MCG TABLET (1,000 UNITS) PO (06:05)
[2021-10-18] MEDS: Atenolol 25 MG Tablet PO ×2 (06:05→17:00)
[2021-10-18 06:20] LABS: Bedside Glucose 146 mg/dL (74-106)
[2021-10-18] MEDS: Aspirin E.C. 81 MG Tablet PO ×2 (07:53→17:00)
[2021-10-18] MEDS: metFORMIN (XR) 500 MG Tablet PO ×3 (07:54→17:00)
[2021-10-18] MEDS: Multivitamin (Healthy Eyes) Capsule 1 CAP PO ×2 (07:54→17:00)
[2021-10-18] MEDS: Calcium (Elemental) 500 MG Tablet PO (07:54)
[2021-10-18] MEDS: Multivitamins,Therapeutic Tablet 1 TABLET PO (07:54)
[2021-10-18] MEDS: Acetaminophen 500 MG Tablet 1000 MG PO (08:00)
[2021-10-18] MEDS: Glucerna Shake 120 ML LIQUID PO ×2 (08:00→16:58)
[2021-10-18 10:00] VITALS: PULSE 67; O2SAT 97
[2021-10-18] MEDS: Cyanocobalamin 500 MCG Tablet PO (11:39)
[2021-10-18] MEDS: Lisinopril 2.5 MG Tablet PO (12:48)
[2021-10-18 12:49] VITALS: BP 157/55; PULSE 67; RESP 18; TEMP 36.4; O2SAT 98
--- NOTE | 2021-10-18 14:49 | NURSING ---
transport for Dr. Sheridan appointment was cancelled since pt is to d/c home
[2021-10-18 17:02] VITALS: BP 155/60; PULSE 67
[2021-10-18] MEDS: Atorvastatin Calcium 10 MG Tablet 5 MG PO (19:37)
[2021-10-19] MEDS: Levothyroxine 50 MCG Tablet PO (05:25)
[2021-10-19] MEDS: Cholecalciferol (VIT D3) 25 MCG TABLET (1,000 UNITS) PO (05:25)
[2021-10-19] MEDS: Atenolol 25 MG Tablet PO ×2 (05:27→17:24)
--- NOTE | 2021-10-19 05:50 | NURSING ---
Left vm for Smiley ACEVES, requesting an order for SN w/ HH referral or PT can obtain order at start of care as pt will need a nurse to remove the marybeth prior to ortho appt.
[2021-10-19 06:31] LABS: Bedside Glucose 139 mg/dL (74-106)
[2021-10-19] MEDS: metFORMIN (XR) 500 MG Tablet PO ×3 (07:50→17:23)
[2021-10-19] MEDS: Multivitamin (Healthy Eyes) Capsule 1 CAP PO ×2 (07:51→17:23)
[2021-10-19] MEDS: Calcium (Elemental) 500 MG Tablet PO (07:51)
[2021-10-19] MEDS: Multivitamins,Therapeutic Tablet 1 TABLET PO (07:51)
[2021-10-19] MEDS: Aspirin E.C. 81 MG Tablet PO ×2 (07:51→17:23)
[2021-10-19] MEDS: Glucerna Shake 120 ML LIQUID PO (07:53)
--- NOTE | 2021-10-19 09:06 | CASEMGMT ---
Social Work Received voicemail from shift supervisor rn nurse (see previous note). Spoke with [facility] about request - added SN to order. Smiley Law, [employer]UD[employer] DIRECTOR DIET CONSULTANT
[2021-10-19 10:00] VITALS: PULSE 76; RESP 18; O2SAT 97
--- NOTE | 2021-10-19 10:33 | NURSING ---
Dr Sheridan office notified of pt discharging this evening for home. new order to DC marybeth from hip incision today since appt for follow up is not until november 05.
--- NOTE | 2021-10-19 10:37 | NURSING ---
Product Support Specialist Note: MDS interview and section F completed.
--- NOTE | 2021-10-19 11:00 | NURSING ---
ARMIN TAKEN OUT BY THIS NURSE PER ORDERS,OK PER RN. STERI STRIPS APPLIED. PT TOLERATED WELL.
[2021-10-19] MEDS: Cyanocobalamin 500 MCG Tablet PO (11:40)
[2021-10-19] MEDS: Lisinopril 2.5 MG Tablet PO (11:40)
[2021-10-19 11:42] VITALS: BP 136/67; PULSE 79
[2021-10-19 13:56] VITALS: BP 143/58; PULSE 74; RESP 15; TEMP 36.2; O2SAT 98
--- NOTE | 2021-10-22 10:34 | MDS.RN ---
Information for the mds was obtained from review of the clinical record, interview of resident, staff, and direct observation of resident's care.
== END 2021-10-19 18:00 | disposition home health service (06) | DRG 561 ==
PROVIDERS: Admitting Provider Family Medicine Geriatric Medicine; PCP Internal Medicine; Visit Provider Family Medicine Geriatric Medicine
DX: S72.001D Fracture of unspecified part of neck of right femur, subsequent encounter for closed fracture with routine healing (principal); D64.9 Anemia, unspecified; E11.9 Type 2 diabetes mellitus without complications; E03.9 Hypothyroidism, unspecified; E53.8 Deficiency of other specified B group vitamins; I10 Essential (primary) hypertension; E55.9 Vitamin D deficiency, unspecified; H35.30 Unspecified macular degeneration; E78.5 Hyperlipidemia, unspecified; M19.90 Unspecified osteoarthritis, unspecified site; W19.XXXD Unspecified fall, subsequent encounter; Z79.84 Long term (current) use of oral hypoglycemic drugs; Z79.899 Other long term (current) drug therapy; Z79.82 Long term (current) use of aspirin; Z79.890 Hormone replacement therapy
CPT/HCPCS: 36415; 80048; 82962; 85025; 92507; 92523; 92610; 97110; 97116; 97162; 97166; 97530; 97535; 97802; A4216

== ENCOUNTER → 2021-10-26 | Outpatient (CLI) | payer MEDICARE, SELFPAY ==
--- NOTE | 2021-10-26 14:37 | VDLE_ITS ---
Reason For Study: Swelling RIGHT GSV is normal. CFV is compressible, spontaneous, phasic, competent and demonstrates normal augmentation. FV is compressible, spontaneous, phasic, competent and demonstrates normal augmentation. POP V is compressible, spontaneous, phasic, competent and demonstrates normal augmentation. T/P Trunk is compressible. PTV is compressible. RT PerV is compressible. Procedure This is a venous duplex using B-mode, color flow and spectral Doppler. Exam performed in department. A preliminary report was called and/or faxed to Dr. Pat. VL/Venous Duplex US, Unilateral Interpretation Summary Deep veins of the right lower extremity are patent and compressible segmentally . There is no evidence of right lower extremity deep vein thrombosis. Valvular competence hattie ears intact within the proximal deep venous system on the right . The right great saphenous vein a ppears patent and compressible segmentally. Ordering Physician: Mishel Pat Referring Physician: Karmen Resendez Performed By: Venessa Aparicio, RDCS, RVT
== END | disposition home or self-care (01) ==
LOC: CVS 14:20
PROVIDERS: PCP Internal Medicine; Referring Provider Internal Medicine; Visit Provider Internal Medicine
DX: M79.89 Other specified soft tissue disorders (principal)
CPT/HCPCS: 93971

== ENCOUNTER → 2022-02-22 | Outpatient (CLI) | payer MEDICARE, SELFPAY ==
--- NOTE | 2022-02-22 14:03 | BI_ITS ---
MAMMOGRAPHY - BILATERAL SCREENING REASON FOR EXAM: Female, 81 years old. Routine annual screening examination. PERTINENT HISTORY: Non-contributory. TECHNIQUE: Digital bilateral breast lukas (3D mammographic acquisition) in the CC and MLO projections. 2-D mediolateral oblique (MLO) and craniocaudad (CC) views of both breasts were obtained. CAD: Full Field Digital Mammography with Computer Added Detection was performed. COMPARISON: Comparison is made with prior study dated 01/19/2021 and 12/06/2019. FINDINGS: Breast Composition: The breasts are heterogeneously dense, which may obscure small masses. There are no dominant masses or suspicious calcifications. Stable linear calcification in the retroareolar region of the left breast. No other significant abnormalities are identified. There has been no significant change since the prior study. BI/SCRN MAMM (CAD)W/LUKAS BILAT IMPRESSION: Stable bilateral screening mammogram. Yearly follow-up mammogram recommended. (A) ASSESSMENT CATEGORY: BIRADS Category 2: Benign. A letter regarding these results will be sent to the patient by the facility within 30 days. Approximately 10% of breast cancers are not detected by mammography. A normal mammogram should not delay biopsy of a clinically suspicious abnormality. [id number] Electronically Signed: Maikol Shin MD at 14:48 EDT ,
== END | disposition home or self-care (01) ==
LOC: OPBI 14:02
PROVIDERS: PCP Internal Medicine; Visit Provider Internal Medicine
DX: Z12.31 Encounter for screening mammogram for malignant neoplasm of breast (principal)
CPT/HCPCS: 77063; 77067

== ENCOUNTER → 2022-03-04 | Outpatient (CLI) | payer MEDICARE, SELFPAY ==
[2022-03-04 10:19] LABS: Hematocrit 38.9 % (37-47); Hemoglobin 12.9 g/dL (12.0-15.0); Mean Corp Hgb Conc 33.2 g/dL (32-36); Mean Corpuscular Hgb 29.5 pg (27.0-32.0); Mean Platelet Vol. 10.5 fl (6.2-12.0); Platelet Count 210 K/mm3 (150-450); RBC Distribution Width CV 14.4 % (11.6-14.6); RBC Distribution Width SD 46.4 fl (35.1-43.9); Red Blood Count 4.37 M/mm3 (4.2-5.4); White Blood Count 5.5 K/mm3 (4.4-11.0)
[2022-03-04 10:43] LABS: Microalbumin,Random Urine 14.1 mg/L (NO RANGE EST.); Microalbumin:Creatinine Ratio 27.8 mg/g CRE (<30 mg/g CRE)
[2022-03-04 10:47] LABS: Vitamin B12 626 pg/mL (211-911); Vitamin D,25 Hydroxy 41.2 ng/mL
[2022-03-04 11:02] LABS: ALB/GLOB Ratio 1.2 RATIO (0.9-2.4); AST(SGOT) 14 U/L (15-37); Alanine Aminotransfer ALT/SGPT 24 U/L (13-56); Albumin, Serum 3.5 g/dL (3.2-5.0); Alkaline Phosphatase 92 U/L (45-117); Anion Gap 9 (5-15); BUN 10 mg/dL (7-18); Calcium,Total 8.6 mg/dL (8.5-10.1); Chloride 99 mmol/L (98-107); Cholesterol 134 mg/dL (200); Creatinine, Serum 0.53 mg/dL (0.55-1.02); EST Glomerular Filtration Rate 119 mL/min (>60); Est Glom Filt Rate - Afr Amer 144 mL/min (>60); Globulin 2.8 g/dL (2.2-4.2); Glucose 120 mg/dL (74-106); High Density Lipoprotein 57 mg/dL; Potassium 4.1 mmol/L (3.5-5.1); Protein, Total 6.3 g/dL (6.4-8.2); Sodium Level 132 mmol/L (136-145); Thyroid Stim Hormone (TSH) 1.31 uIU/mL (0.358-3.74); Triglycerides 118 mg/dL; Very Low Density Lipoprotein 24 mg/dL (5-40)
== END | disposition home or self-care (01) ==
LOC: MTLAB 08:44
PROVIDERS: PCP Internal Medicine; Referring Provider Internal Medicine; Visit Provider Internal Medicine
DX: E55.9 Vitamin D deficiency, unspecified (principal); E11.36 Type 2 diabetes mellitus with diabetic cataract; Z79.4 Long term (current) use of insulin; E03.9 Hypothyroidism, unspecified; E53.8 Deficiency of other specified B group vitamins
CPT/HCPCS: 36415; 80053; 80061; 82043; 82306; 82570; 82607; 84443; 85027

== ENCOUNTER 2022-08-29 10:45 | Emergency (ER) | payer MEDICARE, SELFPAY ==
[2022-08-29 10:45] VITALS: BP 135/93; PULSE 14; RESP 68; TEMP 36.1; O2SAT 99; BMI 23.3
--- NOTE | 2022-08-29 11:07 | EX.ED.UPPERE ---
HPI <EFRAIN Evans - Last Filed: 08/29/22 13:09> History of Present Illness Chief Complaint: Upper Extremity Injury Narrative Narrative: Patient is a 81-year-old female with history of hypertension, diabetes, arthritis who presents to the emergency department with pain to the lower back, right hip, right wrist after a mechanical fall. Patient states that she thinks that she slipped on her slippers, she fell forward try to catch herself with her hands. Patient has worsening pain, edema, deformity of the right wrist. Patient also has pain to the lower back as well as the right hip. She is concerned because she had a right hip surgery 1 year ago patient denies any head or neck injury. Patient members the entire event. She is currently on any blood thinners [facility] <EFRAIN Evans - Last Filed: 08/29/22 13:09> [facility] Medical History Carotid artery stenosis Diabetes Hyperlipidemia Hypertension Hypothyroidism Osteoarthritis Osteoporosis Wears hearing aid in both ears Home Medications atenolol 25 mg tablet 25 mg PO BID BP 01/03/20 [History Last Taken 10/07/21] levothyroxine 50 mcg tablet 50 mcg PO DAILY Thyroid 01/03/20 [History Last Taken 10/06/21] lisinopril 2.5 mg tablet 2.5 mg PO DAILY@1200 BP 01/03/20 [History Last Taken 10/07/21] simvastatin 10 mg tablet 10 mg PO QHS Cholesterol 01/03/20 [History Last Taken 10/06/21] cyanocobalamin (vitamin B-12) 50 mcg tablet (Vitamin B-12) 50 mcg PO DAILY@1200 Supplement 01/10/20 [History Last Taken 10/07/21] Instaflex 1 cap PO/SL DAILY SUPPLEMENT 10/07/21 [History Last Taken 10/07/21] calcium carbonate 600 mg calcium (1,500 mg) tablet (Calcium) 600 mg PO DAILY SUPPLEMENT 10/07/21 [History Last Taken 10/07/21] cholecalciferol (vitamin D3) 25 mcg (1,000 unit) capsule 25 mcg PO DAILY SUPPLEMENT 10/07/21 [History Last Taken 10/07/21] metformin 500 mg tablet,extended release 24 hr 500 mg PO TID DM 10/07/21 [History Last Taken 10/07/21] multivitamin 1 tab PO DAILY SUPPLEMENT 10/07/21 [History Last Taken 10/07/21] vit C 250 mg-vit E 90 mg-zinc 40 mg-copper 1 [id number] capsule (PreserVision AREDS-2) 1 tab PO BID MACULAR DEGENERATION 10/07/21 [History Last Taken 10/07/21 .] acetaminophen 500 mg tablet 1,000 mg PO Q6H PRN PRN Pain Score 1-3 #0 tabs 10/16/21 [Rx Last Taken Unknown] aspirin 81 mg tablet,delayed release 81 mg PO BID Heart health 19 days #38 tabs 10/16/21 [Rx Last Taken Unknown] oxycodone-acetaminophen 5 mg-325 mg tablet (Percocet) 1 tab PO Q8H PRN pain 3 days #10 tabs 08/29/22 [Rx Last Taken Unknown] Allergy/AdvReac Type Severity Reaction Status Date / Time No Known Allergies Allergy Verified 08/29/22 10:48 Family History Father Cancer Mother Heart disease Surgical History H/O: hysterectomy History of appendectomy Social History household members: spouse housing: house Smoking Status: Never smoker alcohol intake: never substance use type: does not use what type of physical activity do you participate in: other ROS <EFRAIN Evans - Last Filed: 08/29/22 13:09> ROS ED ROS Narrative Constitutional: Negative for fever, chills, weight loss, weakness Eyes: Negative for vision loss, vision change, double vision ENT: Negative for any sore throat, ear pain, congestion Cardiovascular: Negative for any chest pain, tightness, palpitations Respiratory: Negative for any cough, sputum production, hemoptysis, dyspnea, dyspnea on exertion, orthopnea Gastrointestinal: Negative for any abdominal pain, nausea, vomiting, diarrhea, constipation, blood in stool, blood in vomit : Negative for any urinary frequency, dysuria, retention, blood in urine Muscle skeletal: Negative for any muscle joint pain, stiffness, myalgias, arthralgias, neck pain. Positive back pain, right hip pain, right wrist pain Neurological: Negative for any headache, syncope, numbness or tingling, dizziness Skin: Negative for any rashes, lumps, itching, abrasions, lacerations Psychiatric: Negative for any depression, anxiety, stress, suicidal ideation, homicidal ideation Hematologic: Negative for any easy bruising, excessive bruising, easy bleeding Allergies: Negative for any eczema, hives, rash EXAM <EFRAIN Evans - Last Filed: 08/29/22 13:09> Physical Exam Narrative Exam Narrative: Vital signs reviewed. HEET: Head normocephalic atraumatic, TMs clear bilaterally. Posterior pharynx is clear, moist mucous membranes. Nares clear bilaterally. Pupils are equal round reactive to light. Neck: Supple with no lymphadenopathy or tenderness. No signs of meningismus, negative jolt sign. Cardiac: Regular rate and rhythm no murmurs gallops or rubs, equal peripheral pulses bilaterally. Respiratory: Lungs clear to auscultation bilaterally. No chest tenderness. Abdomen: Soft, nontender, nondistended. No abdominal bruit or pulsatile masses. No hepatosplenomegaly Extremities: No peripheral edema. Active full range of motion of all extremities. Patient has edema, slight deformity to the distal radial head. Patient does have +2 pedal pulse. Patient has minimal to no pain to the hand, fingers. Patient states when she moves her wrist she has a tingling sensation. There is no signs or symptoms of open fracture. Patient has minimal pain to the lower lumbar spine, right hip. She states that that she wants x-rays just for precaution. Neuro: Cranial nerves II through XII intact, no focal neurological deficits. Skin: Clean dry and intact with no rash, purpura, petechiae, vesicles or pustules. Backs/flank: No CVA tenderness, no midline spinal tenderness, no deformity. Psych: Normal mood and affect. No SI, HI or acute psychosis. Const Vital Signs: 08/29/22 10:45 Temperature 96.9 F L Temperature Source Temporal Pulse Rate 14 L Respiratory Rate 68 H Blood Pressure 135/93 H Blood Pressure Mean 107 Pulse Ox 99 Oxygen Delivery Method Room Air Positive well nourished and well developed General Appearance ED: well developed MDM <EFRAIN Evans - Last Filed: 08/29/22 13:09> [facility] Treatment and Re-Evaluation Narrative: All radiologic examinations were read, reviewed by the emergency department attending. From these reads, a plan of care will be put in place. Patient appears to be in no distress, patient vital signs are stable. Patient presents to the emergency department for a mechanical fall that occurred today. Patient's biggest concern was the right wrist. Patient also complained of some pain to her lumbar spine as well as right hip. Patient's x-rays of the right hip, lower lumbar spine were grossly unremarkable. Did show some degenerative changes. Patient's x-ray of the right wrist showed an acute fracture across the distal radial metaphysis. The wrist fracture did appear to be slightly displaced on x-ray. A hematoma block was completed. Finger traps were used. We able to better straighten the radius. Patient placed in a plaster splint. She is a patient of Dr. Sheridan, she will follow-up with him outpatient. She will be given Percocet for home. She is instructed to ice, elevate. Patient's neurovascular exam was unremarkable once splint was applied. Patient was in a position of comfort. I did speak with her as well he was also given discharge instructions. Patient stable for discharge. <Dr. Joaquin Choe, DO - Last Filed: 08/29/22 15:29> [facility] Narrative Medical decision making narrative: Interventions / MDM: Differential diagnosis: Wrist fracture, wrist contusion, hip contusion, hip dislocation, lumbar contusion Diagnosis considered but do not suspect: N/A My EKG interpretation: N/A Imaging independently reviewed and interpreted by myself: Right wrist 4 views: Distal radius fracture slight dorsal tilt, right hip 3 views: No new fractures, previous lesser trochanteric avulsion, no dislocation hardware intact. Lumbar spine 3 views: Degenerative changes, no fracture. External documents reviewed: N/A Test considered but not ordered:N/A ED course: Attending note: Patient seen and evaluated with motor electrician. I perform my own [id number] evaluation. I agree with the plan of work-up. Mechanical fall prior to arrival with no head injuries. Patient takes baby aspirin no other anticoagulants. Pain to right wrist, mild pain right hip. 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 Sheridan. She has had bilateral wrist fractures previously with no surgical interventions. She is right-hand dominant. Exam slight deformity swelling dorsal aspect of distal radius there is ecchymosis on the volar aspect skin is intact. Negative logroll lower extremity on the right. No deformities. X-rays lumbar right hip and pelvis negative for fractures. Right wrist had fracture with slight dorsal tilt. This was reduced by myself. Patient will follow orthopedics as an outpatient. Re-evaluation: stable Disposition discussed with patient/family/significant other: Patient and significant other Case discussed with consulting clinician: N/A Procedure note: Verbal consent. Normal sterile conditions. Supervise hematoma block by motor electrician a total of 8 cc 1% lidocaine dorsal approach noting dark blood return prior to injection. Good analgesia was performed. Patient placed in finger traps, traction placed with flexion at the fracture with good improved alignment. Patient had nylon sleeve, Kerlix dressing for padding. 3 inch AP plaster splint was placed by myself, Tomas wrap secured in a slight flexion position. Neurovascular intact post splinting. Patient tolerated procedure well. Discharge Plan Triage Chief Complaint: Upper Extremity Injury ED Midlevel Provider: Sven Peña ED Provider: Joaquin Choe Dx/Rx/DC Orders Clinical Impression: Fall, Fracture of wrist, Contusion of hip, right Instructions: ED Fracture, Upper Extremity, ED Fracture, Wrist, General Prescriptions: New oxycodone-acetaminophen [Percocet] 5-325 mg tablet 1 tab PO Q8H PRN (Reason: pain) 3 Days Qty: 10 0RF No Action Vitamin B-12 50 mcg tablet 50 mcg PO DAILY@1200 simvastatin 10 MG tablet 10 mg PO QHS atenolol 25 MG tablet 25 mg PO BID levothyroxine 50 MCG tablet 50 mcg PO DAILY lisinopril 2.5 MG tablet 2.5 mg PO DAILY@1200 multivitamin Tablet 1 tab PO DAILY calcium carbonate [Calcium 600] 600 mg calcium (1,500 mg) Tablet 600 mg PO DAILY metformin 500 mg tablet extended release 24 hr 500 mg PO TID Label Comments: TAKE 2 TABLETS BY MOUTH TWICE DAILY cholecalciferol (vitamin D3) 25 mcg (1,000 unit) Capsule 25 mcg PO DAILY PreserVision AREDS-2 250-90-40-1 mg Capsule 1 tab PO BID Instaflex 1 cap PO/SL DAILY acetaminophen 500 mg Tablet 1,000 mg PO Q6H PRN PRN (Reason: Pain Score 1-3) Qty: 0 0RF aspirin 81 mg tablet,delayed release (DR/EC) 81 mg PO BID 19 Days Qty: 38 0RF Stand Alone Forms: [employer] [facility] Primary Care Provider: Karmen Resendez Referrals: Karmen Resendez DO [Primary Care Provider] - Albert Sheridan DO [Med Staff - Active Staff] - Disposition Disposition: Home, Self Care Discharge Date/Time: 08/29/22 13:18
[2022-08-29] MEDS: Acetaminophen 325 MG Tablet 650 MG PO (11:21)
--- NOTE | 2022-08-29 11:25 | RAD_ITS ---
EXAM: XR LUMBOSACRAL SPINE, 2 OR 3 VIEWS CLINICAL INDICATION: Fall injury. TECHNIQUE: Frontal and lateral views of the lumbar spine and sacrum. This report was created using [employer] report [employer] technology. COMPARISON: None. FINDINGS: VERTEBRAE: Moderate dextroscoliosis of the lumbar spine. Grade 1 degenerative anterolisthesis of L4 on L5. Preserved vertebral body height. No fracture. No spondylolisthesis. No significant facet arthropathy. OTHER BONES/JOINTS: Partially-threaded screw in the right femoral head and neck and a right-sided trochanteric nail in place. DISC SPACES: Pronounced degenerative disc space height narrowing at L3-4, L4-L5 and L5-S1 disc space levels. GASTROINTESTINAL TRACT: Unremarkable as visualized. Included bowel gas pattern is non-obstructive. RAD/Lumbar Spine 2 or 3 Views IMPRESSION: 1. No acute findings in the lumbar spine. 2. Grade 1 degenerative anterolisthesis of L4 on L5 with pronounced disc space height narrowing. 3. Pronounced iterative disc space height narrowing with endplate sclerosis and degenerative vacuum phenomenon at L3-L4 and L5-S1 disc space levels. 4. Moderate dextroscoliosis of the lumbar spine. Electronically Signed: Andrew Marinelli MD at 11:50 EST ,
--- NOTE | 2022-08-29 11:25 | RAD_ITS ---
EXAM: XR RIGHT HIP WITH PELVIS WHEN PERFORMED, 2 OR 3 VIEWS CLINICAL INDICATION: Fall injury. TECHNIQUE: Two or three views of the right hip with pelvis when performed. This report was created using [employer] report generation technology. COMPARISON: 10/07/2021. FINDINGS: BONES/JOINTS: Partially-threaded screw in the right femoral head and neck and right trochanteric nail in place from previous ORIF of the right femoral intertrochanteric fracture. Old fracture fragment of the right lesser trochanter. Benign cyst with sharp zone of transition in the left inferior pubic ramus, less likely old fracture deformity. This is unchanged. No destructive or sclerotic lesions. Note that overlapping bowel shadows may however obscure fine detail. Sacroiliac joint is unremarkable. No widening of the pubic symphysis. The articular structures are unremarkable. SOFT TISSUES: Unremarkable. No soft tissue swelling or gas. RAD/HIP, UNI W/ Pelvis 2-3 Views IMPRESSION: 1. No acute fracture or dislocation of the pelvis and right hip. 2. Interval ORIF using partially-threaded screw and right trochanteric nail with improvement of the alignment and deformity of the right femoral intertrochanteric fracture when compared to 10/07/2021. Electronically Signed: Andrew Marinelli MD at 11:54 EST ,
--- NOTE | 2022-08-29 11:25 | RAD_ITS ---
EXAM: XR RIGHT WRIST COMPLETE, 3 OR MORE VIEWS CLINICAL INDICATION: Fall injury. TECHNIQUE: Frontal, lateral and oblique views of the right wrist. This report was created using [employer] report generation technology. COMPARISON: None. FINDINGS: BONES/JOINTS: Acute fracture across the right distal radial metaphyses. Chondrocalcinosis of the triangular fibrocartilage and along the radiocarpal articulation. Preservation of the joint space. No sclerotic or destructive changes observed. SOFT TISSUES: Unremarkable. No soft tissue swelling or gas. No radiopaque foreign body. RAD/Wrist min 3 Views IMPRESSION: 1. Acute fracture across the distal radial metaphyses. 2. 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 Electronically Signed: Andrew Marinelli MD at 11:51 EST ,
[2022-08-29 13:17] VITALS: BP 124/66; PULSE 72; RESP 16; O2SAT 98
== END 2022-08-29 13:18 | disposition home or self-care (01) ==
PROVIDERS: Emergency Provider Emergency Medicine; PCP Internal Medicine; Visit Provider Emergency Medicine
DX: S62.101A Fracture of unspecified carpal bone, right wrist, initial encounter for closed fracture (principal); S70.01XA Contusion of right hip, initial encounter; W01.0XXA Fall on same level from slipping, tripping and stumbling without subsequent striking against object, initial encounter
CPT/HCPCS: 72100; 73110; 73502; 99282

== ENCOUNTER → 2022-12-02 | Outpatient (CLI) | payer MEDICARE, SELFPAY ==
[2022-12-02 08:09] LABS: Mucous, Urine 0 SEEN /hpf (<or=2+); Red Blood Cells-Urine 0 SEEN /hpf (0-5)
[2022-12-02 10:44] LABS: Basophil# 0.01 X10^3/uL; Basophil% 0.2 % (0-1); Eosinophil# 0.21 X10^3/uL; Eosinophils% 3.2 % (0-5); Hematocrit 36.8 % (37-47); Lymphocyte % 15.1 % (19-41); Mean Corp Hgb Conc 32.6 g/dL (32-36); Mean Corpuscular Hgb 28.6 pg (27.0-32.0); Mean Corpuscular Volume 87.8 fL (81-99); Mean Platelet Vol. 10.5 fl (6.2-12.0); Monocyte# 0.43 X10^3/uL; Monocyte% 6.5 % (0-10); NRBC Flagged by Analyzer 0 % (0-5); Neutrophil # 4.96 X10^3/uL (2.7-7.7); Neutrophil % 74.5 % (47-70); Platelet Count 208 K/mm3 (150-450); RBC Distribution Width CV 14.4 % (11.6-14.6); RBC Distribution Width SD 46.3 fl (35.1-43.9); Red Blood Count 4.19 M/mm3 (4.2-5.4); White Blood Count 6.6 K/mm3 (4.4-11.0)
[2022-12-02 11:07] LABS: Microalbumin,Random Urine 8.2 mg/L (NO RANGE EST.); Microalbumin:Creatinine Ratio 12.5 mg/g CRE (<30 mg/g CRE); Vitamin B12 516 pg/mL (211-911); Vitamin D,25 Hydroxy 69.5 ng/mL
[2022-12-02 11:18] LABS: ALB/GLOB Ratio 1.4 RATIO (0.9-2.4); AST(SGOT) 19 U/L (15-37); Alanine Aminotransfer ALT/SGPT 19 U/L (13-56); Albumin, Serum 3.4 g/dL (3.2-5.0); Alkaline Phosphatase 81 U/L (45-117); Anion Gap 10 (5-15); BUN 11 mg/dL (7-18); BUN/Creat Ratio 19.9 RATIO (10-20); Calcium,Total 8.8 mg/dL (8.5-10.1); Chloride 103 mmol/L (98-107); Cholesterol 104 mg/dL (200); Creatinine, Serum 0.55 mg/dL (0.55-1.02); EST Glomerular Filtration Rate 112 mL/min (>60); Est Glom Filt Rate - Afr Amer 136 mL/min (>60); Globulin 2.5 g/dL (2.2-4.2); Glucose 134 mg/dL (74-106); High Density Lipoprotein 51 mg/dL; Potassium 4.3 mmol/L (3.5-5.1); Protein, Total 5.9 g/dL (6.4-8.2); Sodium Level 135 mmol/L (136-145); Triglycerides 115 mg/dL; Very Low Density Lipoprotein 23 mg/dL (5-40)
[2022-12-02 11:21] LABS: Color, Urine Yellow (Yellow); Glucose, Dipstick Normal (Normal); Ketone-Dipstick Negative (Negative); Leukocyte Esterase-Dipstick 500 /ul (Negative); Nitrite-Dipstick Negative (Negative); Occult Blood-Urine 10 /ul (Negative); Protein-Dipstick Negative (Negative); Urine Bilirubin Dipstick Negative (Negative); Urine Clarity Clear (Clear); Urine Urobilinogen Normal (Normal); Urine pH 6.5 (5.0 - 8.0)
[2022-12-02 11:33] LABS: Bacteria RARE /hpf (None Seen); Squamous Epithelial Cells - UA 5-10 SEEN /hpf (5-10); White Blood Cells 0-5 SEEN /hpf (0-5)
== END | disposition home or self-care (01) ==
LOC: MTLAB 08:06
PROVIDERS: PCP Internal Medicine; Referring Provider Internal Medicine; Visit Provider Internal Medicine
DX: I10 Essential (primary) hypertension (principal); E78.49 Other hyperlipidemia; E03.9 Hypothyroidism, unspecified; E55.9 Vitamin D deficiency, unspecified; E53.8 Deficiency of other specified B group vitamins; R80.9 Proteinuria, unspecified
CPT/HCPCS: 36415; 80053; 80061; 81001; 82043; 82306; 82570; 82607; 84443; 85025

== ENCOUNTER 2022-12-14 13:00 | Outpatient (RCR) | payer MEDICARE, SELFPAY ==
--- NOTE | 2022-11-01 15:54 | HP.OTEVAL_ITS ---
Patient's Visit Information BAKARI BETTENCOURT is a 82 year old F, referred to Occupational Therapy by Dr. Trung Langley MD, with a diagnosis of right distal radius fx.. Date of Evaluation: 10/19/22 Occupational Therapist: Janie Ordonez, PRASAD/Colette, CHT - Subjective This 82 year old female was seen for OT eval with dx of right distal radius fx. pt states she was casted for about 6 weeks. Pt states she suffered a fall and fx her wrist. pt states she was in the kitchen and tripped over her loose slippers. pt went to ER and than was referred to Ortho. Pt states she was able to get apt about a week later. pt was than in short arm cast for about 6 weeks. pt arrives with concerns of pain, deformity, limited ROM, swelling, tingling in thumb, IF and MF. along with weakness. Pt is having her help her with all ADLs and IADls. 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 - Pain right wrist 6 Pain Intensity Range: 3, 6 - ROM Forearm: right supination 45* pronation 60* left WNL Wrist: right 35/20 left 45/65 Opposition: Kapandji opposition scale right 4 left 10 ROM Comments: pt demo with a decrease in right wrist ROM - limited ability to form a composite fist - Strength Healthcare Associate: right unable left 20# Lateral Pinch: right unable left 6# Tripod Pinch: right unable left 4# - Edema Wrist: right 17.5cm left 14.5cm PIP: right MF 2.5 left 2.3 Other: MCP right 18.5cm left 17cm - Sensation Sensation Comments: states tingling numbness in right thumb, IF and MF. pt states since Fall. tingling increases with wrist extension - Quick DASH-Disab of Arm,Shoulder& Hand Quick DASH Score: 75.0000 - Goals Comment: ROM to pts limits wrist 40/35 or greater Goal:Healthcare Associate/Pinch strength at least 75% of unaffected hand: Yes Goal:No pain with affected hand use: Yes Goal:Full use of affected hand in daily activities including: Yes Other Goal: pt will demo understanding of using ad. eq. as needed to increase her IND. with ADLS to ALEKSANDER level by dc - Rehabilitation General Assessment: Pt demo healing fx with limited ROM and weakness and inability to perform ADLs and IADLs at her PLOF. Pt demo need for skilled OT services 1-2x week for 6-8 weeks to return pt to her PLOF. Rehabilitation Potential: Good - Anticipated Interventions A/AAROM/PROM, Strengthening, Education re assistive Equipment, Education re Diagnosis - Visit Plan Frequency: 1-2x /Week Duration: 4-6 Weeks General Plan: improve ROM to pts limits. initiate light strength to pts tolerance. ed. on ad. eq. TEXT: Thank you for the opportunity to evaluate your patient. For Medicare and Medicare HMO plans, please review the plan of care and approve it. It will need to be FAXED BACK to us at [phone] for Medicare purposes. Please let me know if there are questions or concerns regarding this plan of care. Physician Signature: Date:
--- NOTE | 2022-12-14 13:21 | HP.OTDCSUM ---
It has been my pleasure to treat BAKARI BETTENCOURT under orders from Dr. Trung Langley MD, for the diagnosis of right distal radius fx. for a total of 8 visit(s). Please see the following information for a summary of their discharge status. % Improvement: 75 Objective/Function: right forearm supination/pronation WNL improved ROM from 60* pronation and 45* supination. right wrist ROM 55/30 improved from 35/20*. pt demo full composite fist. Patient Accounts Clerk: right 10# ,left 25#. Lateral Pinch: right 4#, left 7#. Tripod Pinch: right 2#, left 4#. pt has made gains and will be d/c with HEP. Patient Goals: Decrease Pain, Use Hand/Wrist/Arm Normally Again Goal:Patient Accounts Clerk/Pinch strength at least 75% of unaffected hand: Yes Goal:No pain with affected hand use: Yes Goal:Full use of affected hand in daily activities including: Yes Other Goal: pt will demo understanding of using ad. eq. as needed to increase her IND. 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 pt has made gains with functional use of her right hand. pt continues to demo weakness of right metal sheet roller operator but will cont. with her HEP. pt demo understanding and agrees to D/C If there are questions or concerns regarding this patient's occupational therapy, please fell free to call me at [phone]. Thank you for the referral of this patient. Sincerely, Janie Ordonez, OTR/L, CHT
== END 2022-12-14 13:39 | disposition home or self-care (01) ==
LOC: OT 13:00
PROVIDERS: PCP Internal Medicine; Referring Provider Specialist; Visit Provider Specialist
DX: S52.591D Other fractures of lower end of right radius, subsequent encounter for closed fracture with routine healing (principal)
CPT/HCPCS: 97110; 97165; 97530

== ENCOUNTER → 2023-03-01 | Outpatient (CLI) | payer MEDICARE, SELFPAY ==
--- NOTE | 2023-03-01 09:43 | BI_ITS ---
MAMMOGRAPHY - BILATERAL SCREENING REASON FOR EXAM: Female, 82 years old. Routine annual screening examination. PERTINENT HISTORY: Non-contributory. Remote left stereotactic breast biopsy. TECHNIQUE: Digital bilateral breast lukas (3D mammographic acquisition) in the CC and MLO projections. 2-D mediolateral oblique (MLO) and craniocaudad (CC) views of both breasts were obtained. CAD: Full Field Digital Mammography with Computer Added Detection was performed. COMPARISON: Comparison is made with prior study dated February 22, 2022 and January 19, 2021. FINDINGS: Breast Composition: The breasts are heterogeneously dense, which may obscure small masses. There are no dominant masses or suspicious calcifications. Stable linear calcification in the retroareolar region of the left breast No other significant abnormalities are identified. There has been no significant change since the prior study. BI/SCRN MAMM (CAD)W/LUKAS BILAT IMPRESSION: Stable bilateral screening mammogram. Yearly follow-up mammogram recommended. (A) ASSESSMENT CATEGORY: BIRADS Category 2: Benign. A letter regarding these results will be sent to the patient by the facility within 30 days. Approximately 10% of breast cancers are not detected by mammography. A normal mammogram should not delay biopsy of a clinically suspicious abnormality. [id number] Electronically Signed: Maikol Shin MD at 9:06 EDT ,
--- NOTE | 2023-03-01 09:48 | BD_ITS ---
STUDY: DUAL ENERGY X-RAY ABSORPTIOMETRY / DXA REASON FOR EXAM: Female, 82 years old. [id number] TECHNIQUE: Bone Mineral Density (BMD) measurements of lumbar spine and left hip were obtained. COMPARISON: Comparison is made with prior study dated December 06, 2019. FINDINGS: Lumbar Spine (L1-L4): g/cm2 (0.890) / T-score (-0.8) / Z-score (1.7) Findings are suggestive of normal bone density with a low fracture risk. Left Femur Total: g/cm2 (0.731) / T-score (-1.7) / Z-score (0.3) Left Femoral Neck: g/cm2 (0.549) / T-score (-2.7) / Z-score (-0.4) The T-Scores on the most recent prior examination were: Lumbar Spine (L1-L4): There has been improvement of bone density since the previous examination. Left Femur Total: which represents an improvement of 0.5%. BD/Dexa Bone Density Study IMPRESSION: The patient is considered osteoporotic as outlined below according to World David Organization (WHO) criteria with a high fracture risk. There has been worsening of bone density since the previous examination. Reference Information: The T-score is the number of standard deviations above or below the standard which is normal for young adults at their peak bone mineral density. The World Health Organization (WHO) interprets the T-scores as follows: Above -1 Normal bone density Between -1 and -2.5 Osteopenia Equal to / or below -2.5 Osteoporosis As a practical clinical guideline, osteopenia may be graded as follows: Mild -1 through -1.5 Moderate -1.6 through -2.0 Severe -2.1 through -2.4 The Z-score is the number of standard deviations above or below age-matched controls. A Z-score of less than -1.5 would be considered abnormal. References: 1. NIH Osteoporosis and Related Bone Diseases www osteo.org 2. International Society for Clinical Densitometry www iscd.org 3. National Osteoporosis Foundation www nof.org Electronically Signed: Maikol Shin MD at 13:18 EDT ,
== END | disposition home or self-care (01) ==
LOC: OPBD 09:41
PROVIDERS: PCP Internal Medicine; Referring Provider Internal Medicine; Visit Provider Internal Medicine
DX: Z78.0 Asymptomatic menopausal state (principal); Z12.31 Encounter for screening mammogram for malignant neoplasm of breast
CPT/HCPCS: 77063; 77067; 77080

== ENCOUNTER → 2023-03-17 | Outpatient (CLI) | payer MEDICARE, SELFPAY | END | disposition home or self-care (01) | LOC: PSN 10:38 | PROVIDERS: PCP Internal Medicine; Referring Provider Internal Medicine; Visit Provider Internal Medicine | DX: I48.91 Unspecified atrial fibrillation (principal); E11.9 Type 2 diabetes mellitus without complications | CPT/HCPCS: 93225; 93226 ==

== ENCOUNTER → 2023-03-25 | Outpatient (CLI) | payer MEDICARE, SELFPAY ==
--- NOTE | 2023-03-25 12:48 | ECHOD_ITS ---
Reason For Study: A. fib Procedure This was a 2D Doppler, Color Flow transthoracic echocardiogram. Exam performed in department. Left Ventricle Normal LV size. Left ventricular systolic function is normal. The estimated ejection fraction is 60 %. Stage 1 diastolic dysfunction. No regional wall motion abnormalities noted. Right Ventricle Normal RV size. Normal systolic function. Atria Normal left atrium. Normal right atrium. Mitral Valve Normal mitral valve. Mild (1+) eccentric mitral valve insufficiency. Tricuspid Valve Normal tricuspid valve. Mild (1+) tricuspid valve insufficiency. Pulmonary artery systolic pressure is 40 mmHg. Aortic Valve Normal aortic valve. Trisinus/trileaflet aortic valve. Pulmonic Valve Normal pulmonic valve. Great Vessels Normal aortic root. The pulmonary artery is normal size. Normal inferior vena cava. Pericardium/Pleural No pericardial effusion. MMode/2D Measurements & Calculations LVIDd: 4.2 cm IVSd: 0.73 cm Ao root diam: 2.7 cm LVIDs: 2.7 cm LVPWd: 0.74 cm RVDd: 2.8 cm FS: 36.0 % LAV(MOD-bp): 34.4 ml LVAd ap4: 16.8 cm2 LVAd ap2: 16.7 cm2 LAV(MOD-bp) Indexed: 24.6 ml/m2 LVLd ap4: 5.6 cm LVLd ap2: 5.6 cm LAV(MOD-sp2): 30.5 ml EDV(MOD-sp4): 43.1 ml EDV(MOD-sp2): 42.4 ml LAV(MOD-sp4): 35.6 ml EDV(sp4-el): 42.8 ml EDV(sp2-el): 42.6 ml LVAs ap4: 10.2 cm2 LVAs ap2: 11.0 cm2 LVLs ap4: 5.0 cm LVLs ap2: 5.2 cm ESV(MOD-sp4): 17.9 ml ESV(MOD-sp2): 20.8 ml ESV(sp4-el): 17.7 ml ESV(sp2-el): 19.9 ml EF(MOD-sp4): 58.4 % EF(MOD-sp2): 50.9 % EF(sp4-el): 58.7 % SV(MOD-sp4): 25.2 ml SV(MOD-sp2): 21.5 ml SV(sp4-el): 25.1 ml LA dimension(2D): 3.2 cm LA A4 area: 14.6 cm2 RA A4 area: 13.1 cm2 TAPSE: 1.8 cm Time Measurements MV dec time: 0.13 sec Doppler Measurements & Calculations MV E max jackson: 97.8 cm/sec Lat Peak E' Jackson: 7.1 cm/sec Med Peak E' Jackson: 6.8 cm/sec MV A max jackson: 104.1 cm/sec E/E' lat: 13.8 E/E' med: 14.4 MV E/A: 0.94 MV dec slope: 725.8 cm/sec2 Ao V2 max: 97.9 cm/sec LV V1 max: 85.0 cm/sec Ao max P.8 mmHg LV V1 max P.9 mmHg PA V2 max: 69.3 cm/sec TR max jackson: 296.2 cm/sec TR max P.1 mmHg ECHO/Echo Complete Interpretation Summary Normal LV size. Left ventricular systolic function is normal. The estimated ejection fraction is 60 %. Stage 1 diastolic dysfunction. Pulmonary artery systolic pressure is 40 mmHg. Mild (1+) tricuspid valve insufficiency. Ordering Physician: Karmen Resendez Referring Physician: Karmen Resendez Performed By: Yuliya Louise RDCS
== END | disposition home or self-care (01) ==
PROVIDERS: PCP Internal Medicine; Referring Provider Internal Medicine; Visit Provider Internal Medicine
DX: I48.20 Chronic atrial fibrillation, unspecified (principal)
CPT/HCPCS: 93306

== ENCOUNTER → 2023-06-06 | Outpatient (CLI) | payer MEDICARE, SELFPAY ==
[2023-06-06 09:14] LABS: Bacteria 0 SEEN /hpf (None Seen); Mucous, Urine 0 SEEN /hpf (<or=2+); Red Blood Cells-Urine 0 SEEN /hpf (0-5)
[2023-06-06 10:54] LABS: Color, Urine Yellow (Yellow); Glucose, Dipstick Normal (Normal); Ketone-Dipstick Negative (Negative); Leukocyte Esterase-Dipstick 500 /ul (Negative); Nitrite-Dipstick Negative (Negative); Occult Blood-Urine Negative /ul (Negative); Protein-Dipstick Negative (Negative); Urine Bilirubin Dipstick Negative (Negative); Urine Clarity Clear (Clear); Urine Urobilinogen Normal (Normal)
[2023-06-06 11:01] LABS: Absolute Lymphocyte Count 1.11 X10^3/uL (0.83-4.51); Absolute Neutrophil Count 3.9 X10^3/uL (2.0-7.7); Basophil# 0.01 X10^3/uL; Basophil% 0.2 % (0-1); Eosinophil# 0.17 X10^3/uL; Hematocrit 39.6 % (37-47); Hemoglobin 12.4 g/dL (12.0-15.0); Lymphocyte # 1.11 X10^3/ul (0.83-4.51); Lymphocyte % 19.4 % (19-41); Mean Corp Hgb Conc 31.3 g/dL (32-36); Mean Corpuscular Hgb 28.7 pg (27.0-32.0); Mean Corpuscular Volume 91.7 fL (81-99); Mean Platelet Vol. 11.3 fl (6.2-12.0); Monocyte# 0.51 X10^3/uL; Monocyte% 8.9 % (0-10); NRBC Flagged by Analyzer 0 % (0-5); Neutrophil # 3.88 X10^3/uL (2.7-7.7); Platelet Count 181 K/mm3 (150-450); RBC Distribution Width CV 14.4 % (11.6-14.6); RBC Distribution Width SD 48.2 fl (35.1-43.9); Red Blood Count 4.32 M/mm3 (4.2-5.4); White Blood Count 5.7 K/mm3 (4.4-11.0)
[2023-06-06 11:22] LABS: Squamous Epithelial Cells - UA 5-10 SEEN /hpf (5-10); White Blood Cells 0-5 SEEN /hpf (0-5)
[2023-06-06 11:38] LABS: Vitamin B12 1241 pg/mL (211-911); Vitamin D,25 Hydroxy 50.2 ng/mL
[2023-06-06 11:51] LABS: ALB/GLOB Ratio 1.3 RATIO (0.9-2.4); AST(SGOT) 18 U/L (15-37); Alanine Aminotransfer ALT/SGPT 21 U/L (13-56); Albumin, Serum 3.3 g/dL (3.2-5.0); Alkaline Phosphatase 64 U/L (45-117); Anion Gap 7 (5-15); BUN 10 mg/dL (7-18); BUN/Creat Ratio 16.8 RATIO (10-20); Calcium,Total 8.4 mg/dL (8.5-10.1); Chloride 102 mmol/L (98-107); Cholesterol 141 mg/dL (200); EST Glomerular Filtration Rate 103 mL/min (>60); Est Glom Filt Rate - Afr Amer 125 mL/min (>60); Globulin 2.6 g/dL (2.2-4.2); Glucose 141 mg/dL (74-106); High Density Lipoprotein 64 mg/dL; Protein, Total 5.9 g/dL (6.4-8.2); Sodium Level 136 mmol/L (136-145); Thyroid Stim Hormone (TSH) 1.42 uIU/mL (0.358-3.74); Triglycerides 106 mg/dL; Troponin-I HS 5 pg/mL (3.0-54.0); Very Low Density Lipoprotein 21 mg/dL (5-40)
[2023-06-06 12:05] LABS: Microalbumin,Random Urine 14.7 mg/L (NO RANGE EST.); Microalbumin:Creatinine Ratio 22.3 mg/g CRE (<30 mg/g CRE)
== END | disposition home or self-care (01) ==
PROVIDERS: PCP Internal Medicine; Referring Provider Internal Medicine; Visit Provider Internal Medicine
DX: R80.9 Proteinuria, unspecified (principal); I48.91 Unspecified atrial fibrillation; E11.9 Type 2 diabetes mellitus without complications; E03.9 Hypothyroidism, unspecified; E55.9 Vitamin D deficiency, unspecified
CPT/HCPCS: 36415; 80053; 80061; 81001; 82043; 82306; 82570; 82607; 84443; 84484; 85025

== ENCOUNTER → 2023-06-20 | Outpatient (CLI) | payer MEDICARE, SELFPAY ==
--- NOTE | 2023-06-20 08:42 | CDU_ITS ---
Reason For Study: PVD Rt. Velocities/BP Lt. Velocities/BP Prox CCA 93/12 cm/sec. Prox CCA 80/9 cm/sec. Mid CCA 105/25 cm/sec. Mid CCA 65/13 cm/sec. Dist CCA 66/16 cm/sec. Dist CCA 75/12 cm/sec. Prox ICA 100/21 cm/sec. Prox ICA 41/12 cm/sec. Mid ICA 152/54 cm/sec. Mid ICA 46/15 cm/sec. Dist ICA 105/32 cm/sec. Dist ICA 54/16 cm/sec. Rt. ICA/CCA = 1.4. Lt. ICA/CCA = 0.8. Prox ECA 88/8 cm/sec. Prox ECA 85/10 cm/sec. Rt. Vert. 43/9 cm/sec. Lt. Vert. 57/15 cm/sec. Right Extracranial There is heterogeneous, irregular atherosclerotic plaque noted in the right common carotid artery. There is heterogeneous, irregular atherosclerotic plaque noted in the right internal carotid artery. The right internal carotid artery is very tortuous. There is heterogeneous, irregular atherosclerotic plaque noted in the right external carotid artery. Antegrade flow is noted in the right vertebral artery. Left Extracranial There is heterogeneous, irregular atherosclerotic plaque noted in the left common carotid artery. There is heterogeneous, irregular atherosclerotic plaque noted in the left internal carotid artery. There is heterogeneous, irregular atherosclerotic plaque noted in the left external carotid artery. Antegrade flow is noted in the left vertebral artery. Procedure Carotid Duplex [id number]. This is a Carotid Duplex examination using B-mode, color flow and specral Doppler. Exam performed in department. VL/Carotid Duplex Ultrasound Interpretation Summary Moderate (50-69%) stenosis right extracranial internal carotid. Mild (<50%) stenosis left extracranial internal carotid. Patent and antegrade vertebrals bilaterally. Ordering Physician: Karmen Resendez Referring Physician: Karmen Resendez Performed By: Venessa Aparicio, RDCS, RVT
== END | disposition home or self-care (01) ==
LOC: CVS 08:41
PROVIDERS: PCP Internal Medicine; Referring Provider Internal Medicine; Visit Provider Internal Medicine
DX: I73.9 Peripheral vascular disease, unspecified (principal); I65.23 Occlusion and stenosis of bilateral carotid arteries
CPT/HCPCS: 93880

== ENCOUNTER → 2023-12-28 | Outpatient (CLI) | payer MEDICARE, SELFPAY ==
[2023-12-28 08:20] LABS: Bacteria 0 SEEN /hpf (None Seen); Mucous, Urine 0 SEEN /hpf (<or=2+); Red Blood Cells-Urine 0 SEEN /hpf (0-5)
[2023-12-28 10:19] LABS: Absolute Lymphocyte Count 0.97 X10^3/uL (0.83-4.51); Absolute Neutrophil Count 3.2 X10^3/uL (2.0-7.7); Basophil# 0.02 X10^3/uL; Basophil% 0.4 % (0-1); Color, Urine Yellow (Yellow); Eosinophil# 0.17 X10^3/uL; Eosinophils% 3.5 % (0-5); Glucose, Dipstick Normal (Normal); Hematocrit 40.2 % (37-47); Hemoglobin 13.1 g/dL (12.0-15.0); Ketone-Dipstick Negative (Negative); Leukocyte Esterase-Dipstick 500 /ul (Negative); Lymphocyte # 0.97 X10^3/ul (0.83-4.51); Lymphocyte % 20.2 % (19-41); Mean Corp Hgb Conc 32.6 g/dL (32-36); Mean Corpuscular Hgb 28.9 pg (27.0-32.0); Mean Corpuscular Volume 88.7 fL (81-99); Monocyte# 0.39 X10^3/uL; Monocyte% 8.1 % (0-10); NRBC Flagged by Analyzer 0 % (0-5); Neutrophil # 3.23 X10^3/uL (2.7-7.7); Neutrophil % 67.2 % (47-70); Nitrite-Dipstick Negative (Negative); Occult Blood-Urine 10 /ul (Negative); Platelet Count 164 K/mm3 (150-450); Protein-Dipstick Negative (Negative); RBC Distribution Width CV 13.8 % (11.6-14.6); RBC Distribution Width SD 44.9 fl (35.1-43.9); Red Blood Count 4.53 M/mm3 (4.2-5.4); Urine Bilirubin Dipstick Negative (Negative); Urine Clarity Clear (Clear); Urine Urobilinogen Normal (Normal); Urine pH 6.5 (5.0 - 8.0); White Blood Count 4.8 K/mm3 (4.4-11.0)
[2023-12-28 10:31] LABS: Squamous Epithelial Cells - UA 0-5 SEEN /hpf (5-10)
[2023-12-28 10:32] LABS: White Blood Cells 5-10 SEEN /hpf (0-5)
[2023-12-28 10:37] LABS: Microalbumin,Random Urine 5.6 mg/L (NO RANGE EST.); Microalbumin:Creatinine Ratio 8.1 mg/g CRE (<30 mg/g CRE)
[2023-12-28 10:47] LABS: Vitamin B12 650 pg/mL (211-911); Vitamin D,25 Hydroxy 72.3 ng/mL
[2023-12-28 11:43] LABS: ALB/GLOB Ratio 1.5 RATIO (0.9-2.4); AST(SGOT) 18 U/L (15-37); Alanine Aminotransfer ALT/SGPT 17 U/L (13-56); Albumin, Serum 3.6 g/dL (3.2-5.0); Alkaline Phosphatase 70 U/L (45-117); Anion Gap 6 (5-15); BUN 10 mg/dL (7-18); BUN/Creat Ratio 14.8 RATIO (10-20); Calcium,Total 9.5 mg/dL (8.5-10.1); Chloride 101 mmol/L (98-107); Cholesterol 116 mg/dL (200); Creatinine, Serum 0.67 mg/dL (0.55-1.02); EST Glomerular Filtration Rate 89 mL/min (>60); Est Glom Filt Rate - Afr Amer 108 mL/min (>60); Globulin 2.4 g/dL (2.2-4.2); Glucose 143 mg/dL (74-106); High Density Lipoprotein 56 mg/dL; Potassium 3.8 mmol/L (3.5-5.1); Sodium Level 132 mmol/L (136-145); Thyroid Stim Hormone (TSH) 0.81 uIU/mL (0.358-3.74); Triglycerides 62 mg/dL; Very Low Density Lipoprotein 12 mg/dL (5-40)
[2023-12-28 12:27] LABS: Hemoglobin A1c 6.7 % (3.8-5.6)
== END | disposition home or self-care (01) ==
LOC: MTLAB 08:16
PROVIDERS: PCP Internal Medicine; Referring Provider Internal Medicine; Visit Provider Internal Medicine
DX: R39.9 Unspecified symptoms and signs involving the genitourinary system (principal); E11.65 Type 2 diabetes mellitus with hyperglycemia; I10 Essential (primary) hypertension; D62 Acute posthemorrhagic anemia; E03.9 Hypothyroidism, unspecified; E53.8 Deficiency of other specified B group vitamins; M81.0 Age-related osteoporosis without current pathological fracture; E78.49 Other hyperlipidemia
CPT/HCPCS: 36415; 80053; 80061; 81001; 82043; 82306; 82570; 82607; 82746; 83036; 84443; 85025; 87086

== ENCOUNTER → 2024-03-02 | Outpatient (CLI) | payer MEDICARE, SELFPAY ==
--- NOTE | 2024-03-02 10:19 | BI_ITS ---
MAMMOGRAPHY - BILATERAL SCREENING REASON FOR EXAM: Female, 83 years old. Routine annual screening examination. PERTINENT HISTORY: Non-contributory. History of remote left stereotactic breast biopsy. TECHNIQUE: Digital bilateral breast lukas (3D mammographic acquisition) in the CC and MLO projections. 2-D mediolateral oblique (MLO) and craniocaudad (CC) views of both breasts were obtained. CAD: Full Field Digital Mammography with Computer Added Detection was performed. COMPARISON: Comparison is made with prior study dated March 01, 2023. FINDINGS: Breast Composition: The breasts are heterogeneously dense, which may obscure small masses. There are no dominant masses or suspicious calcifications. Stable linear calcification in the retroareolar region of the left breast. No other significant abnormalities are identified. There has been no significant change since the prior study. BI/SCRN MAMM (CAD)W/LUKAS BILAT IMPRESSION: Stable bilateral screening mammogram. Yearly follow-up mammogram recommended. (A) ASSESSMENT CATEGORY: BIRADS Category 2: Benign. A letter regarding these results will be sent to the patient by the facility within 30 days. Approximately 10% of breast cancers are not detected by mammography. A normal mammogram should not delay biopsy of a clinically suspicious abnormality. [id number] Electronically Signed: Maikol Shin MD at 10:54 EDT ,
== END | disposition home or self-care (01) ==
LOC: OPBI 10:18
PROVIDERS: PCP Internal Medicine; Referring Provider Internal Medicine; Visit Provider Internal Medicine
DX: Z12.31 Encounter for screening mammogram for malignant neoplasm of breast (principal)
CPT/HCPCS: 77063; 77067

== ENCOUNTER → 2024-07-02 | Outpatient (CLI) | payer MEDICARE, SELFPAY ==
[2024-07-02 09:50] LABS: Bacteria 0 SEEN /hpf (None Seen); Mucous, Urine 0 SEEN /hpf (<or=2+); Red Blood Cells-Urine 0 SEEN /hpf (0-5); Squamous Epithelial Cells - UA 0 SEEN /hpf (5-10); White Blood Cells 0 SEEN /hpf (0-5)
[2024-07-02 12:36] LABS: Absolute Lymphocyte Count 1.81 X10^3/uL (0.83-4.51); Absolute Neutrophil Count 3.9 X10^3/uL (2.0-7.7); Basophil# 0.02 X10^3/uL; Basophil% 0.3 % (0-1); Eosinophil# 0.14 X10^3/uL; Eosinophils% 2.2 % (0-5); Hematocrit 41.7 % (37-47); Hemoglobin 13.6 g/dL (12.0-15.0); Lymphocyte # 1.81 X10^3/ul (0.83-4.51); Lymphocyte % 28.6 % (19-41); Mean Corp Hgb Conc 32.6 g/dL (32-36); Mean Corpuscular Hgb 28.9 pg (27.0-32.0); Mean Corpuscular Volume 88.7 fL (81-99); Mean Platelet Vol. 11.2 fl (6.2-12.0); Monocyte# 0.45 X10^3/uL; Monocyte% 7.1 % (0-10); NRBC Flagged by Analyzer 0 % (0-5); Neutrophil # 3.87 X10^3/uL (2.7-7.7); Neutrophil % 61.3 % (47-70); Platelet Count 176 K/mm3 (150-450); RBC Distribution Width SD 45.3 fl (35.1-43.9); White Blood Count 6.3 K/mm3 (4.4-11.0)
[2024-07-02 13:00] LABS: Vitamin B12 539 pg/mL (211-911); Vitamin D,25 Hydroxy 58.4 ng/mL
[2024-07-02 13:11] LABS: ALB/GLOB Ratio 1.4 RATIO (0.9-2.4); AST(SGOT) 18 U/L (15-37); Alanine Aminotransfer ALT/SGPT 23 U/L (13-56); Albumin, Serum 3.6 g/dL (3.2-5.0); Alkaline Phosphatase 78 U/L (45-117); Anion Gap 8 (5-15); BUN 12 mg/dL (7-18); BUN/Creat Ratio 18.5 RATIO (10-20); Calcium,Total 8.8 mg/dL (8.5-10.1); Chloride 101 mmol/L (98-107); Cholesterol 135 mg/dL (200); Creatinine, Serum 0.65 mg/dL (0.55-1.02); EST Glomerular Filtration Rate 93 mL/min (>60); Est Glom Filt Rate - Afr Amer 113 mL/min (>60); Globulin 2.6 g/dL (2.2-4.2); Glucose 134 mg/dL (74-106); High Density Lipoprotein 68 mg/dL; Potassium 3.9 mmol/L (3.5-5.1); Protein, Total 6.2 g/dL (6.4-8.2); Sodium Level 135 mmol/L (136-145); Triglycerides 108 mg/dL; Very Low Density Lipoprotein 22 mg/dL (5-40)
[2024-07-02 13:17] LABS: Color, Urine Yellow (Yellow); Glucose, Dipstick Normal (Normal); Ketone-Dipstick Negative (Negative); Leukocyte Esterase-Dipstick 100 /ul (Negative); Nitrite-Dipstick Negative (Negative); Occult Blood-Urine Negative /ul (Negative); Protein-Dipstick Negative (Negative); Urine Bilirubin Dipstick Negative (Negative); Urine Clarity Clear (Clear); Urine Urobilinogen Normal (Normal)
[2024-07-02 13:25] LABS: Renal Epithelial Cells 0-5 SEEN /hpf (0-5)
[2024-07-02 13:43] LABS: Microalbumin,Random Urine 12.1 mg/L (NO RANGE EST.); Microalbumin:Creatinine Ratio 22.8 mg/g CRE (<30 mg/g CRE)
== END | disposition home or self-care (01) ==
PROVIDERS: PCP Internal Medicine; Referring Provider Internal Medicine; Visit Provider Internal Medicine
DX: I10 Essential (primary) hypertension (principal); E11.9 Type 2 diabetes mellitus without complications; E03.9 Hypothyroidism, unspecified; E53.8 Deficiency of other specified B group vitamins; E78.49 Other hyperlipidemia; M81.0 Age-related osteoporosis without current pathological fracture
CPT/HCPCS: 36415; 80053; 80061; 81001; 82043; 82306; 82570; 82607; 84443; 85025

== ENCOUNTER → 2024-09-06 | Outpatient (CLI) | payer MEDICARE, SELFPAY | END | disposition home or self-care (01) | LOC: PSN 11:32 | PROVIDERS: PCP Internal Medicine; Referring Provider Physician Assistant Medical; Visit Provider Physician Assistant Medical | DX: I47.10 Supraventricular tachycardia, unspecified (principal) | CPT/HCPCS: 93225; 93226 ==

== ENCOUNTER → 2025-02-26 | Outpatient (CLI) | payer MEDICARE, SELFPAY ==
[2025-02-26 09:50] LABS: Mucous, Urine 0 SEEN /hpf (<or=2+); Red Blood Cells-Urine 0 SEEN /hpf (0-5)
[2025-02-26 12:20] LABS: Color, Urine Yellow (Yellow); Glucose, Dipstick Normal (Normal); Ketone-Dipstick Negative (Negative); Leukocyte Esterase-Dipstick 500 /ul (Negative); Nitrite-Dipstick Negative (Negative); Occult Blood-Urine Negative /ul (Negative); Protein-Dipstick 15 mg/dl (Negative); Specific Gravity, Urine 1.010 (1.002-1.030); Urine Bilirubin Dipstick Negative (Negative)
[2025-02-26 12:31] LABS: Hematocrit 42.6 % (37-47); Hemoglobin 14.1 g/dL (12.0-15.0); Immature Granulocytes Count 0.030 X10^3/uL (0.0-0.0); Mean Corp Hgb Conc 33.1 g/dL (32-36); Mean Corpuscular Volume 88.9 fL (81-99); Mean Platelet Vol. 11.2 fl (6.2-12.0); NRBC Flagged by Analyzer 0 % (0-5); Platelet Count 159 K/mm3 (150-450); RBC Distribution Width CV 13.7 % (11.6-14.6); RBC Distribution Width SD 44.6 fl (35.1-43.9); Red Blood Count 4.79 M/mm3 (4.2-5.4); Squamous Epithelial Cells - UA 0-5 SEEN /hpf (5-10); White Blood Count 5.7 K/mm3 (4.4-11.0)
[2025-02-26 12:47] LABS: Creatinine, Urine (random) 35.90 mg/dL (28.00-217.00); Microalbumin,Random Urine < 12.0 mg/L (<20 mg/L)
[2025-02-26 13:14] LABS: AST(SGOT) 27 U/L (<=31); Alanine Aminotransfer ALT/SGPT 22 U/L (<=34); Albumin, Serum 4.2 g/dL (3.4-4.8); Alkaline Phosphatase 76 U/L (35-104); Anion Gap 13 (5-15); BUN 14 mg/dL (4-19); BUN/Creat Ratio 22.1 RATIO (10-20); Calcium,Total 9.5 mg/dL (7.6-11.0); Carbon Dioxide 22.4 mmol/L (21.0-32.0); Chloride 102 mmol/L (98-108); Cholesterol 132 mg/dL (<=200); Globulin 2.1 g/dL (2.2-4.2); Glucose 152 mg/dL (70-99); Low Density Lipoprotein Calc. 44 mg/dL; Potassium 4.4 mmol/L (3.3-5.1); Triglycerides 103 mg/dL; Very Low Density Lipoprotein 21 mg/dL (5-40); cholesterol:hdl ratio screen 1.95
== END | disposition home or self-care (01) ==
LOC: MTLAB 09:44
PROVIDERS: PCP Internal Medicine; Referring Provider Internal Medicine; Visit Provider Internal Medicine
DX: E03.9 Hypothyroidism, unspecified (principal); E11.9 Type 2 diabetes mellitus without complications; E78.49 Other hyperlipidemia
CPT/HCPCS: 36415; 80053; 80061; 81001; 82043; 82570; 84443; 85025